=== PATIENT | male | born 1990 | race Caucasian/White ===

== ENCOUNTER → 2020-02-13 12:37 | Outpatient (BNVA) | payer OTHER, SELFPAY | PROVIDERS: PCP Family Medicine; Referring Provider Family Medicine; Visit Provider Nurse Practitioner Gerontology | DX: E11.40 Type 2 diabetes mellitus with diabetic neuropathy, unspecified (principal); E11.65 Type 2 diabetes mellitus with hyperglycemia; Z79.4 Long term (current) use of insulin | CPT/HCPCS: 99213 ==

== ENCOUNTER 2020-03-29 14:14 | Outpatient (REF) | payer OTHER, SELFPAY ==
[2020-03-29 15:08] LABS: Estimated Average Glucose 280 mg/dL; Hemoglobin A1c % 11.4 %
[2020-03-29 15:38] LABS: Alanine Aminotransferase 62 U/L (0-40); Albumin Level 4.2 g/dL (3.5-5.0); Alkaline Phosphatase 104 U/L (39-117); Anion Gap 15 (12-20); Aspartate Amino Transferase 41 U/L (5-37); Bilirubin Total 0.9 mg/dL (0.0-1.0); Blood Urea Nitrogen 8 mg/dL (9-16); Calcium 9.1 mg/dL (8.4-10.2); Carbon Dioxide 25 mmol/L (22-29); Chloride 97 mmol/L (96-108); Cholesterol 187 mg/dL; Estimated Glomerular Filt Rate > 60; Glucose Fasting 250 mg/dL (60-99); HDL Cholesterol 35 mg/dL; LDL Cholesterol Calculated 118 mg/dl; Potassium 4.4 mmol/l (3.3-5.1); Sodium 133 mmol/L (135-145); Total Protein 7.7 g/dL (6.5-8.0); Triglycerides 170 mg/dL
[2020-03-29 15:39] LABS: Microalbum/Creatinine Ratio Ur 29.2 ug/mg cr
[2020-03-29 16:00] LABS: Vitamin D 25-OH Total 18.5 ng/mL (>30)
[2020-03-30 14:22] LABS: LDL Cholesterol Direct 133 mg/dL (<100)
== END 2020-03-29 14:15 | disposition home or self-care (01) ==
LOC: HO.LAB 14:14
PROVIDERS: Absent Provider Nurse Practitioner Gerontology; PCP Family Medicine; Visit Provider Family Medicine
DX: E11.40 Type 2 diabetes mellitus with diabetic neuropathy, unspecified (principal); E55.9 Vitamin D deficiency, unspecified; E78.00 Pure hypercholesterolemia, unspecified
CPT/HCPCS: 80053; 80061; 82043; 82306; 83036; 83721

== ENCOUNTER → 2020-04-14 10:56 | Outpatient (BNVA) | payer OTHER, SELFPAY | PROVIDERS: PCP Family Medicine; Referring Provider Family Medicine; Visit Provider Nurse Practitioner Gerontology | DX: Z76.89 Persons encountering health services in other specified circumstances (principal) ==

== ENCOUNTER → 2020-04-29 08:28 | Outpatient (BNVA) | payer OTHER, SELFPAY | PROVIDERS: PCP Family Medicine; Visit Provider Nurse Practitioner | DX: Z76.89 Persons encountering health services in other specified circumstances (principal) ==

== ENCOUNTER 2020-05-20 08:54 | Outpatient (REF) | payer OTHER, SELFPAY ==
--- NOTE | 2020-05-20 08:57 | US_ITS ---
EXAMINATION: US ABDOMEN COMPLETE CLINICAL INFORMATION: Abnormal levels of other serum enzymes. COMPARISON: None TECHNIQUE: Real-time imaging of the abdominal viscera. FINDINGS: PANCREAS: The body of the pancreas is homogeneous in echotexture. The tail and the head of the pancreas are obscured by overlying gas. ABDOMINAL AORTA: The abdominal aorta is of normal caliber. INFERIOR VENA CAVA: Visualized portions are normal. LIVER: The liver is enlarged with diffuse increased echogenicity. No focal lesion or intrahepatic ductal dilatation seen. There is no intrahepatic biliary duct dilatation seen. GALLBLADDER: The gallbladder is moderately distended with septation and folds. There is no evidence of stones, sludge, polyps, wall thickening, or pericholecystic fluid. COMMON BILE DUCT: Normal in caliber measuring 0.4 cm in diameter. RIGHT KIDNEY: Normal. No hydronephrosis. No renal calculi or focal parenchymal lesions. The kidney measures 12.8 cm in maximum dimension. LEFT KIDNEY: Normal. No hydronephrosis. No renal calculi or focal parenchymal lesions. The kidney measures 13.9 cm in maximum dimension. SPLEEN: The spleen is mildly enlarged.The spleen measures 15.9 cm in maximum dimension. FREE FLUID: None. US/US abdomen complete IMPRESSION: Hepatosplenomegaly. Mild hepatic steatosis without focal lesion. Gallbladder is moderately distended with septation/folds within the fundus.
== END 2020-05-20 08:55 | disposition home or self-care (01) ==
LOC: HO.US 08:54
PROVIDERS: PCP Family Medicine; Visit Provider Nurse Practitioner
DX: R74.8 Abnormal levels of other serum enzymes (principal)
CPT/HCPCS: 76700

== ENCOUNTER → 2020-05-21 13:21 | Outpatient (BNVA) | payer OTHER, SELFPAY | PROVIDERS: PCP Family Medicine; Visit Provider Nurse Practitioner Gerontology | DX: Z13.89 Encounter for screening for other disorder (principal) | CPT/HCPCS: 99212 ==

== ENCOUNTER 2020-06-01 10:35 | Outpatient (REF) | payer OTHER, SELFPAY ==
[2020-06-01 11:35] LABS: Estimated Average Glucose 315 mg/dL; Hemoglobin A1c % 12.6 %
[2020-06-01 12:20] LABS: Vitamin D 25-OH Total 11.2 ng/mL (>30)
[2020-06-01 12:22] LABS: Ferritin 116 ng/mL (20-250)
[2020-06-02 09:47] LABS: HBS Num1 35.82 mIU/mL (0-7.99); HBc Num1 0.07 S/CO (0.00-0.79); HBsAGNum1 0.22 S/CO (0.00-0.99); HIV AB/AG Nonreactive (Nonreactive); HIV Num 1 0.07 S/CO (0.00-0.99); Hepatitis A Antibody IgM 0.19 Index (0-0.79); Hepatitis B Core Antibody Nonreactive (Nonreactive); Hepatitis B Surface Antigen Negative (Negative); ~HepC Num1 0.07 S/CO (0.00-0.79); ~Hepatitis A Antibody IgM Nonreactive (Nonreactive); ~Hepatitis B Surface Antibody REACTIVE (Nonreactive); ~Hepatitis C Antibody Nonreactive (Nonreactive)
[2020-06-02 11:32] LABS: Alpha Fetoprotein 4.7 ng/mL (<6.1)
[2020-06-02 12:42] LABS: Mitochondrial Antibodies NEGATIVE (NEGATIVE)
[2020-06-02 13:28] LABS: Anti Nuclear Antibody Screen NEGATIVE (NEGATIVE)
[2020-06-04 00:27] LABS: Smooth Muscle Antibody <20 U (<20)
== END 2020-06-01 10:36 | disposition home or self-care (01) ==
LOC: HO.LAB 10:35
PROVIDERS: Absent Provider Nurse Practitioner Gerontology; PCP Family Medicine; Visit Provider Nurse Practitioner
DX: R74.8 Abnormal levels of other serum enzymes (principal); E11.42 Type 2 diabetes mellitus with diabetic polyneuropathy; E55.9 Vitamin D deficiency, unspecified
CPT/HCPCS: 36415; 82105; 82306; 82728; 83036; 86038; 86039; 86255; 86256; 86704; 86706; 86709; 86803; 87340; 87389

== ENCOUNTER → 2020-06-09 08:53 | Outpatient (BNVA) | payer OTHER, SELFPAY | PROVIDERS: PCP Family Medicine; Visit Provider Nurse Practitioner | DX: Z76.89 Persons encountering health services in other specified circumstances (principal) ==

== ENCOUNTER → 2020-06-25 07:57 | Outpatient (BNVA) | payer OTHER, SELFPAY | PROVIDERS: PCP Family Medicine; Visit Provider Nurse Practitioner Gerontology | DX: E11.40 Type 2 diabetes mellitus with diabetic neuropathy, unspecified (principal); Z79.4 Long term (current) use of insulin; E78.5 Hyperlipidemia, unspecified; I10 Essential (primary) hypertension; E55.9 Vitamin D deficiency, unspecified; E66.01 Morbid (severe) obesity due to excess calories; Z68.43 Body mass index [BMI] 50.0-59.9, adult | CPT/HCPCS: 82947; 99212 ==

== ENCOUNTER → 2020-08-09 11:15 | Outpatient (BNVA) | payer OTHER, SELFPAY | PROVIDERS: PCP Family Medicine; Visit Provider Nurse Practitioner ==

== ENCOUNTER → 2020-08-16 10:08 | Outpatient (BNVA) | payer OTHER, SELFPAY | PROVIDERS: PCP Family Medicine; Visit Provider Nurse Practitioner Gerontology ==

== ENCOUNTER 2020-08-20 08:03 | Outpatient (REF) | payer OTHER, SELFPAY ==
[2020-08-20 09:29] LABS: Anion Gap 14 (12-20); Blood Urea Nitrogen 10 mg/dL (9-16); Carbon Dioxide 28 mmol/L (22-29); Chloride 101 mmol/L (96-108); Cholesterol 166 mg/dL; Estimated Glomerular Filt Rate > 60; Glucose Fasting 168 mg/dL (60-99); HDL Cholesterol 33 mg/dL; LDL Cholesterol Calculated 97 mg/dl; Potassium 4.6 mmol/L (3.3-5.1); Sodium 138 mmol/L (135-145); Triglycerides 182 mg/dL
[2020-08-20 09:31] LABS: Estimated Average Glucose 206 mg/dL; Hemoglobin A1c % 8.8 %
[2020-08-20 09:43] LABS: Creatinine Urine 283.79 mg/dL; Microalbum/Creatinine Ratio Ur 24.6 ug/mg cr
== END 2020-08-20 08:04 | disposition home or self-care (01) ==
LOC: HO.LAB 08:03
PROVIDERS: Absent Provider Nurse Practitioner Gerontology; PCP Family Medicine; Visit Provider Family Medicine
DX: E11.9 Type 2 diabetes mellitus without complications (principal); I10 Essential (primary) hypertension; E78.00 Pure hypercholesterolemia, unspecified
CPT/HCPCS: 36415; 80051; 80061; 82043; 82565; 82947; 83036; 84520

== ENCOUNTER 2020-08-20 08:50 | Outpatient (REF) | payer OTHER, SELFPAY ==
[2020-08-20 09:18] LABS: COVID-19 Test Positive (Negative)
== END 2020-08-20 08:51 | disposition home or self-care (01) ==
LOC: HO.LAB 08:50
PROVIDERS: Visit Provider Internal Medicine
DX: Z20.822 Contact with and (suspected) exposure to COVID-19 (principal)
CPT/HCPCS: 36415; 87635; C9803

== ENCOUNTER → 2020-11-18 12:13 | Outpatient (BNVA) | payer OTHER, SELFPAY | PROVIDERS: PCP Family Medicine; Visit Provider Nurse Practitioner Gerontology | DX: E11.40 Type 2 diabetes mellitus with diabetic neuropathy, unspecified (principal); E66.01 Morbid (severe) obesity due to excess calories; E78.5 Hyperlipidemia, unspecified; E55.9 Vitamin D deficiency, unspecified; I10 Essential (primary) hypertension; Z79.4 Long term (current) use of insulin; Z68.43 Body mass index [BMI] 50.0-59.9, adult | CPT/HCPCS: 82947; 83036; 99212 ==

== ENCOUNTER → 2020-11-26 12:43 | Outpatient (BNVA) | payer OTHER, SELFPAY | PROVIDERS: PCP Family Medicine; Visit Provider Nurse Practitioner ==

== ENCOUNTER 2021-03-15 11:03 | Outpatient (REF) | payer OTHER, SELFPAY ==
--- NOTE | ~2021-03-15 | XR_ITS ---
EXAMINATION: XR CHEST CLINICAL INFORMATION: Cough. URI. COMPARISON: December 25, 2019 TECHNIQUE: 2 views of the chest were obtained. FINDINGS: No significant abnormality is noted involving the heart, lungs, mediastinum, bony thorax or soft tissues. XR/XR chest 2V IMPRESSION: No acute disease.
== END 2021-03-15 11:04 | disposition home or self-care (01) ==
LOC: HO.XRAY 11:03
PROVIDERS: PCP Family Medicine; Visit Provider Family Medicine
DX: R05.9 Cough, unspecified (principal)
CPT/HCPCS: 71046

== ENCOUNTER 2021-03-29 08:21 | Outpatient (REF) | payer OTHER, SELFPAY ==
[2021-03-29 08:52] LABS: MANUAL DIFF FLAG NO
[2021-03-29 09:02] LABS: Basophils Percent Auto 0.4 % (0-2); Eosinophils Absolute Auto 0.2 X10*3/uL (0.0-0.4); Eosinophils Percent Auto 1.7 % (0-4); Hematocrit 44.3 % (42.0-52.0); Hemoglobin 14.4 g/dl (14.0-18.0); Imm Gran Abs Auto 0.07 X10*3/uL (0.00-0.03); Imm Gran Pct Auto 0.7 % (0.0-0.4); Lymphocytes Percent Auto 28.5 % (20-40); Mean Corpuscular HGB Conc 32.5 g/dl (31.0-36.0); Mean Corpuscular Hemoglobin 25.5 pg (27.0-33.0); Mean Corpuscular Volume 78.4 fL (80.0-98.0); Mean Platelet Volume 10.2 fL (9.4-12.4); Monocytes Absolute Auto 0.6 X10*3/uL (0.1-1.2); Neutrophils Absolute Auto 6.6 x10*3/uL (2.0-8.3); Neutrophils Percent Auto 62.7 % (45-73); Platelet Count 363 X10*3/uL (160-400); Red Blood Count 5.65 X10*6/uL (4.60-5.80); Red Cell Distribution Width 13.8 % (11.0-16.0); White Blood Count 10.5 X10*3/uL (4.8-10.8)
[2021-03-29 09:28] LABS: Alanine Aminotransferase 90 U/L (0-40); Aspartate Amino Transferase 51 U/L (5-37); Estimated Average Glucose 306 mg/dL; Hemoglobin A1c % 12.3 %
[2021-03-29 09:29] LABS: Alanine Aminotransferase 92 U/L (0-40); Albumin Level 4.1 g/dL (3.5-5.0); Alkaline Phosphatase 110 U/L (39-117); Anion Gap 15 (12-20); Aspartate Amino Transferase 51 U/L (5-37); Bilirubin Direct 0.2 mg/dL (0.0-0.5); Bilirubin Total 0.5 mg/dL (0.0-1.0); Blood Urea Nitrogen 8 mg/dL (9-16); Calcium 9.7 mg/dL (8.4-10.2); Carbon Dioxide 27 mmol/L (22-29); Chloride 98 mmol/L (96-108); Cholesterol 203 mg/dL; Estimated Glomerular Filt Rate > 60; Glucose Fasting 308 mg/dL (60-99); HDL Cholesterol 38 mg/dL; LDL Cholesterol Calculated 121 mg/dl; Potassium 4.2 mmol/L (3.3-5.1); Sodium 136 mmol/L (135-145); Total Protein 8.1 g/dL (6.5-8.0); Triglycerides 223 mg/dL
[2021-03-29 09:51] LABS: Thyroid Stimulating Hormone 1.16 uIU/mL (0.32-4.0)
[2021-03-29 11:10] LABS: Creatinine Urine 258.65 mg/dL; Microalbum/Creatinine Ratio Ur 33.6 ug/mg cr
[2021-03-30 11:07] LABS: LDL Cholesterol Direct 139 mg/dL (<100)
== END 2021-03-29 08:22 | disposition home or self-care (01) ==
LOC: HO.LAB 08:21
PROVIDERS: Nurse Practitioner; Absent Provider Nurse Practitioner Gerontology; PCP Family Medicine; Visit Provider Family Medicine
DX: E11.40 Type 2 diabetes mellitus with diabetic neuropathy, unspecified (principal); K75.81 Nonalcoholic steatohepatitis (NASH); R74.8 Abnormal levels of other serum enzymes; E78.00 Pure hypercholesterolemia, unspecified; I10 Essential (primary) hypertension; E11.9 Type 2 diabetes mellitus without complications; R00.0 Tachycardia, unspecified; Z79.899 Other long term (current) drug therapy; Z79.4 Long term (current) use of insulin
CPT/HCPCS: 36415; 80053; 80061; 80076; 82043; 82105; 82248; 82550; 83036; 83721; 84439; 84443; 84450; 84460; 85025

== ENCOUNTER 2021-04-06 06:56 | Emergency (ER) | payer OTHER, SELFPAY ==
--- NOTE | 2021-04-06 07:14 | ED_ITS ---
HPI - General Adult General Chief complaint: General Medical Stated complaint: low blood sugar Time Seen by Provider: 04/06/21 07:14 Source: patient Mode of arrival: ambulatory Limitations: no limitations History of Present Illness HPI narrative: patient put in his insulin monitoring device on Sunday but his readings as of yesterday started reading low. In the ED our Glucometer read 130. Patient states he has mild headache Onset (ago): day(s) Associated symptoms: headaches Related Data Home Medications Medication Instructions Recorded Confirmed lisinopril 20 mg tablet 20 mg PO DAILY 02/13/20 11/18/20 metoprolol succinate 100 mg 100 mg PO DAILY 02/13/20 11/18/20 tablet,extended release 24 hr blood sugar diagnostic #10 ea 05/21/20 08/16/20 gabapentin 300 mg capsule 300 mg PO BEDTIME 11/18/20 11/18/20 Previous Rx's Medication Instructions Recorded flash glucose scanning reader #1 ea 03/05/20 (FreeStyle Urszula 2 [place]) cholecalciferol (vitamin D3) 50 50 mcg PO DAILY 30 Days #30 cap 05/21/20 mcg (2,000 unit) capsule [id number]-[id number]-[id number] 1 cap PO QID 30 Days #120 cap 06/09/20 24,000-76,000-120,000 unit capsule,delayed rel (Creon) empagliflozin 25 mg tablet 25 mg PO DAILY #30 tab 06/25/20 (Jardiance) flash glucose sensor (FreeStyle #2 ea 06/25/20 Urszula 2 Sensor) insulin glargine U-300 conc 300 60 unit (0.2 mL) SUBCUT DAILY 30 06/25/20 unit/mL (1.5 mL) subcutaneous pen Days #9 ml (Toujeo SoloStar U-300 Insulin) pen needle, diabetic 32 gauge x #125 ea 06/25/20 (BD Ultra-Fine Suzy Pen Needle) insulin lispro 100 unit/mL See Rx Instructions SUBCUT TID #15 07/20/20 subcutaneous pen (Humalog KwikPen ml (U-100) Insulin) dulaglutide 3 mg/0.5 mL 3 mg (0.5 mL) SUBCUT QWEEK 28 Days 11/18/20 subcutaneous pen injector #2 ml (Trulicity) dulaglutide 4.5 mg/0.5 mL 4.5 mg (0.5 mL) SUBCUT QWEEK #2 ml 11/18/20 subcutaneous [facility] ([facility] metformin 1,000 mg tablet 1,000 mg PO DAILY 30 Days #30 tab 01/24/21 atorvastatin 20 mg tablet 20 mg PO BEDTIME #30 tab 03/31/21 Allergies Allergy/AdvReac Type Severity Reaction Status Date / Time No Known Allergies Allergy Verified 11/26/20 12:44 Review of Systems Constitutional: Constitutional: Reports no additional constitutional complaints Eyes: Eyes: Reports no additional eye complaints ENT: Denies dizziness Cardiovascular: Cardiovascular: Reports no additional cardiovascular complaints Respiratory: Respiratory: Reports as per HPI Gastrointestinal: Gastrointestinal: Reports no additional gastrointestinal complaints Musculoskeletal: Musculoskeletal: Reports no additional musculoskeletal complaints Integumentary/Breasts: Skin/Breast: Denies rash Neurologic: Reports system reviewed and no additional complaints, except as documented, Denies dizziness and Denies Sensory deficit (Neuro) Psychiatric: Psychiatric: Denies anxiety PMFSH Past Medical History Medical History BMI 50.0-59.9, adult Elevated liver enzymes GERD (gastroesophageal reflux disease) Hyperlipidemia Hypertension Morbid obesity Neuropathy Type 2 diabetes mellitus with diabetic neuropathy Vitamin D deficiency Surgical History Hx of circumcision Family History Family History Father Diabetes Mother Diabetes Social History Social History Household Members: Family Household Members Other:: brothers Alcohol intake: never Patient Tobacco Use Status: Never used Tobacco Advance Directives: No Current occupational status: employed Current occupation: [employer] Physical Exam Vital Signs: Vital Signs: Last Vital Signs Temp 96.0 F L 04/06/21 07:43 Pulse 101 H 04/06/21 07:43 Resp 18 04/06/21 07:43 BP 121/67 04/06/21 07:43 Pulse Ox 97 04/06/21 07:43 Body Mass Index 53.1 Const: Other: obese male looking older than stated age Nutritional Appearance: obese Orientation/consciousness: oriented to person and patient oriented x3 Limitations: no limitations HENMT: Head: Yes normal to inspection Ears: external ears normal General nose exam: Normal external nose present Mouth: Normal oral and palatal mucosa present and oropharynx normal Throat: Yes posterior oropharynx normal Eyes: General: appearance normal, both eyes and all related structures Neck: Other: supple Neck: Yes normal visual inspection Chest: Chest palpation & inspection: normal inspection of the chest Resp: Auscultation: clear to auscultation bilaterally Cardio: Jugular venous distension: no JVD Rate: regular rate Rhythm: regular rhythm Heart sounds: S1 normal heart sound present and S2 normal heart sound present GI: Inspection: Yes normal to inspection Palpation (GI): Soft to palpation, nontender and No hepatosplenomegaly present Auscultation: normal bowel sounds : General: Yes no CVA tenderness Back/Spine/Pelvis: Back: no CVA tenderness Skin: General skin exam: no rashes or lesions noted Neuro: General: oriented to person and patient oriented x3 Cranial nerves: Yes CN's II-XII intact bilaterally Motor exam (neuro): 5/5 motor strength present throughout Sensory Exam: No Sensory deficit (Neuro) Extrem: General: Yes normal to inspection Psych: Appearance: grossly normal Course Reevaluation(s) Reevaluation #1: patients glucose monitor is off, repeat glucose is 175 Time: 09:18 Medical Decision Making Lab Data Result diagrams: 04/06/21 07:43 Labs: Lab Results 04/06/21 04/06/21 Range/Units 07:10 07:43 Sodium 137 (135-145) mmol/L Potassium 4.3 (3.3-5.1) mmol/L Chloride 103 (96-108) mmol/L Carbon Dioxide 24 (22-29) mmol/L Anion Gap 14 (12-20) BUN 13 D (9-16) mg/dL Creatinine 0.78 (0.5-1.4) mg/dL Estim Creat Clear Calc 201.0 Estimated GFR > 60 POC Glucose 167 H (60-115) mg/dL Random Glucose 175 H (60-115) mg/dL Calcium 9.6 (8.4-10.2) mg/dL Discharge Plan Discharge Clinical Impression: Diabetes Qualifiers: Diabetes mellitus type: type 2 Diabetes mellitus 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 Diabetes mellitus complication status: with other specified complication Qualified Code(s): E11.69 - Type 2 diabetes mellitus with other specified complication Patient Disposition: Home, Self-Care Instructions: Diabetes and Nutrition (ED) Prescriptions: No Action (DME) FreeStyle Urszula 2 [place] Misc See Rx Instructions .ROUTE .MEDSUPPLY Qty: 1 RF: 0 insulin lispro [Humalog KwikPen Insulin] 100 unit/mL insulin pen See Rx Instructions subcut TID Qty: 15 RF: 1 metformin 1,000 mg tablet 1,000 mg PO DAILY 30 Days Qty: 30 RF: 4 atorvastatin 20 mg tablet 20 mg PO BEDTIME Qty: 30 RF: 11 metoprolol succinate 100 mg tablet extended release 24 hr 100 mg PO DAILY RF: 0 lisinopril 20 mg tablet 20 mg PO DAILY RF: 0 (DME) FreeStyle Precision Denis Strips Strip See Rx Instructions strip .ROUTE .MEDSUPPLY Qty: 10 RF: 0 cholecalciferol (vitamin D3) 50 mcg (2,000 unit) capsule 50 mcg PO DAILY 30 Days Qty: 30 RF: 6 Creon 24,000-76,000 -120,000 unit capsule,delayed release(DR/EC) 1 cap PO QID 30 Days Qty: 120 RF: 3 Toujeo SoloStar U-300 Insulin 300 unit/mL (1.5 mL) insulin pen 60 unit subcut DAILY 30 Days Qty: 9 RF: 2 (DME) pen needle, diabetic [BD Ultra-Fine Suzy Pen Needle] 32 gauge x 5/32 needle See Rx Instructions .ROUTE .MEDSUPPLY Qty: 125 RF: 11 (DME) FreeStyle Urszula 2 Sensor Kit See Rx Instructions .ROUTE .MEDSUPPLY Qty: 2 RF: 11 Jardiance 25 mg tablet 25 mg PO DAILY Qty: 30 RF: 3 gabapentin 300 mg capsule 300 mg PO BEDTIME RF: 0 Trulicity 3 mg/0.5 mL pen injector 3 mg subcut QWEEK 28 Days Qty: 2 RF: 0 Trulicity 4.5 mg/0.5 mL pen injector 4.5 mg subcut QWEEK Qty: 2 RF: 3 Referrals: Torito Cooley MD [Primary Care Provider] - 5 days
[2021-04-06 07:25] LABS: Glucose, Whole Blood 167 mg/dL (60-115)
[2021-04-06 07:43] VITALS: BP 121/67; PULSE 101; RESP 18; TEMP 35.6; O2SAT 97; BMI 53.1
[2021-04-06 08:05] LABS: Anion Gap 14 (12-20); Blood Urea Nitrogen 13 mg/dL (9-16); Calcium 9.6 mg/dL (8.4-10.2); Carbon Dioxide 24 mmol/L (22-29); Chloride 103 mmol/L (96-108); Estimated Glomerular Filt Rate > 60; Glucose Random 175 mg/dL (60-115); Potassium 4.3 mmol/L (3.3-5.1); Sodium 137 mmol/L (135-145)
--- NOTE | 2021-04-06 09:40 | PC.NURSE ---
pt alert and oriented, vss, denies pain/headache/dizziness. pt has a blood glucose monitor to his left upper inner arm, he states his monitor has been giving him low blood glucose readings since yesterday evening. he thinks his monitor is not working because this is not normal for him. pt is asymptomatic. no symptoms reported. pt's poc on arrival to ed was 167. His random glucose was 175. Pt is now medically cleared for discharge.
== END 2021-04-06 09:38 | disposition home or self-care (01) ==
PROVIDERS: Emergency Provider Emergency Medicine; PCP Family Medicine
DX: E11.69 Type 2 diabetes mellitus with other specified complication (principal); R51.9 Headache, unspecified; Z79.899 Other long term (current) drug therapy
CPT/HCPCS: 36415; 80048; 82947; 99283

== ENCOUNTER 2021-06-13 10:20 | Outpatient (REF) | payer OTHER, SELFPAY ==
--- NOTE | ~2021-06-13 | US_ITS ---
EXAMINATION: US ABDOMEN LIMITED CLINICAL INFORMATION: Nonalcoholic steatohepatitis (MIRANDA). COMPARISON: Ultrasound abdomen complete 05/20/2020. TECHNIQUE: Real-time imaging of the right upper quadrant abdominal viscera. FINDINGS: PANCREAS: Not well visualized due to bowel gas. LIVER: The liver is enlarged. The liver echotexture is increased. The liver contour is normal. No focal hepatic lesion. There is no intrahepatic biliary duct dilatation seen. GALLBLADDER: Normal. The gallbladder is physiologically distended without evidence of stones, sludge, polyps, wall thickening or pericholecystic fluid. There may be a phrygian cap. COMMON BILE DUCT: Normal in caliber measuring 0.28 cm in diameter. RIGHT KIDNEY: Normal. No hydronephrosis. No renal calculi or focal parenchymal lesions. The kidney measures 13.7 cm in maximum dimension. FREE FLUID: None. US/US abdomen limited IMPRESSION: Enlarged echogenic liver similar to previous exam.
== END 2021-06-13 10:21 | disposition home or self-care (01) ==
LOC: HO.US 10:20
PROVIDERS: PCP Family Medicine; Visit Provider Nurse Practitioner
DX: K75.81 Nonalcoholic steatohepatitis (NASH) (principal); R74.8 Abnormal levels of other serum enzymes
CPT/HCPCS: 76705

== ENCOUNTER → 2021-06-17 08:00 | Outpatient (BNVA) | payer OTHER, SELFPAY | PROVIDERS: PCP Family Medicine; Visit Provider Nurse Practitioner Gerontology ==

== ENCOUNTER → 2021-06-21 08:01 | Outpatient (BNVA) | payer OTHER, SELFPAY | PROVIDERS: PCP Family Medicine; Visit Provider Nurse Practitioner | DX: K75.81 Nonalcoholic steatohepatitis (NASH) (principal); K83.5 Biliary cyst; R14.0 Abdominal distension (gaseous); R10.9 Unspecified abdominal pain | CPT/HCPCS: 99212 ==

== ENCOUNTER 2021-08-16 10:35 | Outpatient (REF) | payer OTHER, SELFPAY ==
[2021-08-16 12:01] LABS: Estimated Average Glucose 341 mg/dL; Hemoglobin A1c % 13.5 %
[2021-08-16 12:30] LABS: Alanine Aminotransferase 67 U/L (0-40); Albumin Level 4.2 g/dL (3.5-5.0); Alkaline Phosphatase 110 U/L (39-117); Aspartate Amino Transferase 36 U/L (5-37); Bilirubin Direct 0.3 mg/dL (0.0-0.5); Bilirubin Total 0.8 mg/dL (0.0-1.0); Lipase 14 U/L (8-78); Total Protein 7.9 g/dL (6.5-8.0)
[2021-08-16 12:35] LABS: Glucose Fasting 176 mg/dL (60-99)
[2021-08-16 12:46] LABS: Thyroid Stimulating Hormone 0.88 uIU/mL (0.32-4.0)
[2021-08-16 12:50] LABS: Vitamin D 25-OH Total 19.8 ng/mL (>30)
[2021-08-16 13:05] LABS: Creatinine Urine 62.05 mg/dL; Microalbum/Creatinine Ratio Ur 16.1 ug/mg cr
[2021-08-18 05:51] LABS: Thyroglobulin 13.5 ng/mL
[2021-08-18 12:26] LABS: Alpha Fetoprotein 5.2 ng/mL (<6.1)
== END 2021-08-16 10:36 | disposition home or self-care (01) ==
LOC: HO.LAB 10:35
PROVIDERS: Absent Provider Nurse Practitioner; PCP Family Medicine; Referring Provider Family Medicine; Visit Provider Nurse Practitioner Gerontology
DX: K75.81 Nonalcoholic steatohepatitis (NASH) (principal); E55.9 Vitamin D deficiency, unspecified; E11.40 Type 2 diabetes mellitus with diabetic neuropathy, unspecified; R00.0 Tachycardia, unspecified; Z79.4 Long term (current) use of insulin; Z83.49 Family history of other endocrine, nutritional and metabolic diseases
CPT/HCPCS: 36415; 80076; 82043; 82105; 82306; 82947; 83036; 83690; 84432; 84443

== ENCOUNTER → 2021-08-19 12:01 | Outpatient (BNVA) | payer OTHER, SELFPAY | PROVIDERS: PCP Family Medicine; Visit Provider Nurse Practitioner Gerontology | DX: E11.40 Type 2 diabetes mellitus with diabetic neuropathy, unspecified (principal); E78.5 Hyperlipidemia, unspecified; E66.01 Morbid (severe) obesity due to excess calories; I10 Essential (primary) hypertension; Z79.4 Long term (current) use of insulin; E55.9 Vitamin D deficiency, unspecified; Z68.43 Body mass index [BMI] 50.0-59.9, adult | CPT/HCPCS: 82947; 99212 ==

== ENCOUNTER 2023-05-16 20:03 | Emergency (ER) | payer BC, OTHER, SELFPAY ==
[2023-05-16 20:08] VITALS: BP 150/110; PULSE 77; RESP 18; TEMP 36.6; O2SAT 98; BMI 49.4
--- NOTE | 2023-05-16 20:10 | ED.URI ---
HPI - URI/Sore Throat General Chief Complaint: Upper Respiratory Symptoms Stated Complaint: chest pain, congestion, sore throat Time Seen by Provider: 05/17/23 00:19 Source: patient Mode of arrival: ambulatory Limitations: no limitations History of Present Illness HPI Narrative: 32 yo M w/ PMHx DM, HLD, HTN presenting to the ED c/o chest pain when cough, sore throat, generalized body ache chills, fever x2 weeks. Has been noncompliant with all meds x1 year > due to health insurance issues Related Data Home Medications Medication Instructions Recorded Confirmed lisinopril 20 mg tablet 20 mg PO DAILY 02/13/20 08/19/21 metoprolol succinate 100 mg 100 mg PO DAILY 02/13/20 08/19/21 tablet,extended release 24 hr blood sugar diagnostic #10 ea 05/21/20 08/16/20 gabapentin 300 mg capsule 300 mg PO BEDTIME 11/18/20 06/17/21 mzbahc-wipnxrvb-wvigzfa 1 cap PO TID 06/17/21 08/19/21 6,000-19,000-30,000 unit capsule,delayed rel (Creon) gabapentin 300 mg capsule 300 mg PO BEDTIME 08/19/21 08/19/21 Previous Rx's Medication Instructions Recorded cholecalciferol (vitamin D3) 50 50 mcg PO DAILY 30 days #30 caps 05/21/20 mcg (2,000 unit) capsule empagliflozin 25 mg tablet 25 mg PO DAILY #30 tabs 06/25/20 (Jardiance) pen needle, diabetic 32 gauge x #125 ea 06/25/20 (BD Ultra-Fine Suzy Pen Needle) atorvastatin 20 mg tablet 20 mg PO BEDTIME #30 tabs 03/31/21 flash glucose scanning reader #1 ea 05/09/21 (FreeStyle Urszula 2 [place]) flash glucose sensor (FreeStyle #2 ea 08/09/21 Urszula 2 Sensor kit) insulin aspart U-100 100 unit/mL See Rx Instructions subcut TID #45 08/11/21 (3 mL) subcutaneous pen (Novolog mL FlexPen U-100 Insulin aspart) cholecalciferol (vitamin D3) 1,250 1,250 mcg PO QWEEK #8 caps 08/19/21 mcg (50,000 unit) capsule insulin glargine U-300 conc 300 74 unit (0.2467 mL) subcut DAILY 08/19/21 unit/mL (1.5 mL) subcutaneous pen 30 days #9 mL (Toujeo SoloStar U-300 Insulin) dulaglutide 4.5 mg/0.5 mL 4.5 mg (0.5 mL) subcut QWEEK #2 mL 11/30/21 subcutaneous pen injector (Trulicity) metformin 1,000 mg tablet 1,000 mg PO DAILY 30 days #30 tabs 02/23/22 Allergies Allergy/AdvReac Type Severity Reaction Status Date / Time No Known Allergies Allergy Verified 05/16/23 20:13 Review of Systems Review of Systems: All other systems are reviewed and are negative Constitutional: Reports as per HPI and Reports no additional constitutional complaints Eyes: Reports as per HPI and Reports no additional eye complaints Reports system reviewed and no additional complaints, except as documented Cardiovascular: Reports as per HPI and Reports no additional cardiovascular complaints Respiratory: Reports as per HPI and Reports no additional respiratory complaints Gastrointestinal: Reports as per HPI and Reports no additional gastrointestinal complaints Genitourinary: Reports no additional female genitourinary complaints Musculoskeletal: Reports no additional musculoskeletal complaints Skin/Breast: Reports system reviewed and no additional complaints, except as docu Psychiatric: Reports no additional psychiatric complaints Endocrine: Reports no additional endocrine complaints Hematologic/Lymphatic: Reports no additional hematologic/lymphatic complaints Allergic/Immunologic: Reports no additional allergic/immunologic complaints Reports system reviewed and no additional complaints, except as documented and Reports Abnormal speech present PMFSH Past Medical History Onset Date is defined in the Problem List Problems that require an onset date and time if occurred within 24 hrs of arrival to the ED Aortic Dissection and Rupture; Neurologic impairment; Cardiopulmonary Arrest; Endotracheal Intubation; Insertion or Replacement of Mechanical Circulatory Assist Device Medical History GERD (gastroesophageal reflux disease) BMI 50.0-59.9, adult Morbid obesity Neuropathy Vitamin D deficiency Hyperlipidemia Hypertension Type 2 diabetes mellitus with diabetic neuropathy Surgical History Hx of circumcision Family History Family History Father Diabetes Mother Diabetes Social History Social History Household Members: Family Household Members Other:: brothers Alcohol intake: never Patient Tobacco Use Status: Never used Tobacco Advance Directives: No Advance Directives Information Provided: Yes Current occupational status: employed 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 Blood pressure elevated. Heart rate normal. Respiratory rate normal. Temperature normal. Oxygen saturation normal. Appearance: Alert. Oriented X3. No acute distress. Head: Normal external exam. Normocephalic. Atraumatic. No Barrow signs noted. No raccoon eyes noted Eyes: PERRLA. EOMI. Conjunctiva and sclera normal. Eyelids normal. ENT: TM's Normal. Pharynx normal. Uvula midline. Moist mucous membranes. No trismus noted. No drooling noted. No muffled voice noted. Neck: Normal inspection. Neck supple. FROM. No adenopathy. Thyroid Normal. No meningeal signs. No neck mass noted. CVS: Normal heart rate and rhythm. Heart sound normal. No murmurs noted. Pulses normal throughout. Respiratory: No respiratory distress. Painless inspiration. Breath sounds normal. No wheezes/rales/rhonchi noted. Chest nontender. No accessory muscle usage noted or decreased air movement noted. Abdomen: Soft and nontender. Bowel sounds normal in all 4 quadrants. No distention noted. No organomegaly noted. No visible injury noted. Back: No CVA tenderness. Full range of motion noted. Skin: Skin warm and dry. Normal skin color. Normal skin turgor. No rashes/lesions/lacerations noted. Extremities: No lower extremity edema. Extremities exhibit normal range of motion. Extremities nontender. Neuro: Oriented X 3. Cranial nerve exam: II-XII are grossly intact No motor deficit. No sensory deficit. Reflexes normal. Course Course Course Narrative: RME: EKG, viral testing, rapid strep, CXR ordered Full HPI, ROS and PE to be performed by primary ED provider. Reevaluation(s) Reevaluation #1: 32-year-old male came in for evaluation of 2 weeks of upper respiratory symptoms patient found to be positive for influenza type A, patient work at [employer] was advised to quarantine at home will provide note for work, patient was instructed to wear face mask, frequent handwashing, social distancing there have Time: 00:45 Medical Decision Making Differential Diagnosis Differential Diagnoses: The differential diagnosis associated with the presentation includes ( RSV, influenza COVID-19 infection, pneumonia, pneumothorax.) Admission/Observation Consideration of admission/observation: Escalation of care including admission/observation considered Lab Data MDM Lab Attestation statement: I reviewed the patient's lab results. Labs: Lab Results 05/16/23 Range/Units 20:38 Influenza Type A (PCR) POSITIVE A (Negative) Influenza Type B (PCR) NEGATIVE (Negative) RSV RNA Qual (PCR) NEGATIVE (Negative) SARS-CoV-2 RNA (RT-PCR) NEGATIVE (Negative) S. pyogenes GrpA DEWEY Negative (Negative) Independent Interpretation I performed an independent interpretation of an: Plain X-Ray (Chest: Unremarkable examination) Radiology Impression Discussion of test interpretation with radiology: I have reviewed the radiologist's reading. Discharge Plan Discharge Clinical Impression: Influenza Patient Disposition: Home, Self-Care Instructions: Influenza (ED) Prescriptions: No Action atorvastatin 20 mg tablet 20 mg PO BEDTIME Qty: 30 11RF (DME) FreeStyle Urszula 2 [place] Misc See Rx Instructions .ROUTE .MEDSUPPLY Qty: 1 0RF Rx Instructions: As directed (DME) FreeStyle Urszula 2 Sensor Kit See Rx Instructions .ROUTE .MEDSUPPLY Qty: 2 11RF Rx Instructions: As directed insulin aspart U-100 [Novolog FlexPen U-100 Insulin] 100 unit/mL (3 mL) insulin pen See Rx Instructions subcut TID Qty: 45 5RF Rx Instructions: 14 units prior to breakfast/lunch, 24 units prior to dinner subcut 3 times a day; Trulicity 4.5 mg/0.5 mL pen injector 4.5 mg subcut QWEEK Qty: 2 3RF metformin 1,000 mg tablet 1,000 mg PO DAILY 30 Days Qty: 30 4RF metoprolol succinate 100 mg tablet extended release 24 hr 100 mg PO DAILY lisinopril 20 mg tablet 20 mg PO DAILY (DME) FreeStyle Precision Denis Strips Strip See Rx Instructions .ROUTE .MEDSUPPLY Qty: 10 Rx Instructions: As directed cholecalciferol (vitamin D3) 50 mcg (2,000 unit) capsule 50 mcg PO DAILY 30 Days Qty: 30 6RF Rx Instructions: To take while taking vit d 50,000 units weekly (DME) pen needle, diabetic [BD Ultra-Fine Suzy Pen Needle] 32 gauge x 5/32 needle See Rx Instructions .ROUTE .MEDSUPPLY Qty: 125 11RF Rx Instructions: As directed four times a day Jardiance 25 mg tablet 25 mg PO DAILY Qty: 30 3RF gabapentin 300 mg capsule 300 mg PO BEDTIME Creon 6,000-19,000 -30,000 unit capsule,delayed release(DR/EC) 1 cap PO TID gabapentin 300 mg capsule 300 mg PO BEDTIME Toujeo SoloStar U-300 Insulin 300 unit/mL (1.5 mL) insulin pen 74 unit subcut DAILY 30 Days Qty: 9 3RF cholecalciferol (vitamin D3) 1,250 mcg (50,000 unit) capsule 1,250 mcg PO QWEEK Qty: 8 0RF Rx Instructions: Hold vit D 2,000 units for the 8 weeks taking this medication. Referrals: Torito Cooley MD [Primary Care Provider] - Stand Alone Forms: Work/School Release
[2023-05-17 01:30] VITALS: PULSE 77; RESP 16; O2SAT 97
== END 2023-05-17 01:32 | disposition home or self-care (01) ==
PROVIDERS: Emergency Provider Emergency Medicine; PCP Family Medicine
DX: J10.1 Influenza due to other identified influenza virus with other respiratory manifestations (principal); R07.9 Chest pain, unspecified; Z11.52 Encounter for screening for COVID-19; J02.9 Acute pharyngitis, unspecified
CPT/HCPCS: 0241U; 71046; 87651; 93005; 99283; 99284

== ENCOUNTER → 2023-05-16 20:07 | Outpatient (BNV) | payer OTHER, SELFPAY | PROVIDERS: Emergency Provider Emergency Medicine; PCP Family Medicine; Visit Provider Internal Medicine Cardiovascular Disease | DX: R00.0 Tachycardia, unspecified (principal) | CPT/HCPCS: 93010 ==

== ENCOUNTER 2023-10-26 20:22 | Emergency (ER) | payer BC, OTHER, SELFPAY ==
[2023-10-26 20:32] VITALS: BP 183/112; PULSE 113; RESP 18; TEMP 36.8; O2SAT 98; BMI 48.7
[2023-10-26 20:48] LABS: MANUAL DIFF FLAG NO
[2023-10-26 20:50] LABS: Basophils Percent Auto 0.4 % (0-2); Eosinophils Absolute Auto 0.1 X10*3/uL (0.0-0.4); Eosinophils Percent Auto 1.4 % (0-4); Hematocrit 41.3 % (42.0-52.0); Hemoglobin 13.9 g/dl (14.0-18.0); Imm Gran Abs Auto 0.06 X10*3/uL (0.00-0.03); Imm Gran Pct Auto 0.6 % (0.0-0.4); Lymphocytes Absolute Auto 2.8 X10*3/uL (1.2-4.9); Lymphocytes Percent Auto 27.9 % (20-40); Mean Corpuscular HGB Conc 33.7 g/dl (31.0-36.0); Mean Corpuscular Hemoglobin 26.4 pg (27.0-33.0); Mean Corpuscular Volume 78.4 fL (80.0-98.0); Mean Platelet Volume 9.9 fL (9.4-12.4); Monocytes Absolute Auto 0.6 X10*3/uL (0.1-1.2); Monocytes Percent Auto 6.1 % (2-11); Neutrophils Absolute Auto 6.3 x10*3/uL (2.0-8.3); Neutrophils Percent Auto 63.6 % (45-73); Platelet Count 342 X10*3/uL (160-400); Red Blood Count 5.27 X10*6/uL (4.60-5.80); Red Cell Distribution Width 12.7 % (11.0-16.0); White Blood Count 9.9 X10*3/uL (4.8-10.8)
[2023-10-26 21:06] LABS: Alanine Aminotransferase 36 U/L (0-40); Albumin Level 3.9 g/dL (3.5-5.0); Alkaline Phosphatase 106 U/L (39-117); Anion Gap 14 (12-20); Aspartate Amino Transferase 19 U/L (5-37); Bilirubin Total 0.3 mg/dL (0.0-1.0); Blood Urea Nitrogen 7 mg/dL (9-16); Calcium 9.2 mg/dL (8.4-10.2); Carbon Dioxide 24 mmol/L (22-29); Chloride 99 mmol/L (96-108); Creatinine Clr Calc Pharmacy 173.1; Estimated Glomerular Filt Rate > 60; Glucose Random 437 mg/dL (60-115); Potassium 3.9 mmol/L (3.3-5.1); Sodium 133 mmol/L (135-145); Total Protein 7.4 g/dL (6.5-8.0)
--- NOTE | 2023-10-26 21:06 | PC.NURSE ---
critical lab: glucose 437.
--- NOTE | 2023-10-26 21:16 | ED_ITS ---
HPI - General Adult General Chief complaint: Extremity Injury, Lower Stated complaint: feet are burning Time Seen by Provider: 10/26/23 21:06 Source: patient Mode of arrival: ambulatory Limitations: no limitations History of Present Illness ED Provider: Dr. Kerrie Sanchez HPI narrative: Patient comes to the emergency room complaining of 2 years of worsening burning sensation pins and needles in the soles of the feet. Patient is known to be diabetic. Patient states that for 2-1/2 years he has not taking any of his medications, states that he never got to go back to his PCP for refills. Patient came today because the pain in the feet has gradually been worsening. Patient denies any pain. Also, patient has stopped taking all of his blood pressure medications the same reason Related Data Home Medications ?Medication ?Instructions ?Recorded ?Confirmed lisinopril 20 mg tablet 20 mg PO DAILY 02/13/20 08/19/21 metoprolol succinate 100 mg 100 mg PO DAILY 02/13/20 08/19/21 tablet,extended release 24 hr blood sugar diagnostic #10 ea 05/21/20 08/16/20 gabapentin 300 mg capsule 300 mg PO BEDTIME 11/18/20 06/17/21 [id number] 1 cap PO TID 06/17/21 08/19/21 6,000-19,000-30,000 unit capsule,delayed rel (Creon) gabapentin 300 mg capsule 300 mg PO BEDTIME 08/19/21 08/19/21 Previous Rx's ?Medication ?Instructions ?Recorded cholecalciferol (vitamin D3) 50 50 mcg PO DAILY 30 days #30 caps 05/21/20 mcg (2,000 unit) capsule empagliflozin 25 mg tablet 25 mg PO DAILY #30 tabs 06/25/20 (Jardiance) pen needle, diabetic 32 gauge x #125 ea 06/25/20 (BD Ultra-Fine Suzy Pen Needle) atorvastatin 20 mg tablet 20 mg PO BEDTIME #30 tabs 03/31/21 flash glucose scanning reader #1 ea 05/09/21 (FreeStyle Urszula 2 [place]) flash glucose sensor (FreeStyle #2 ea 08/09/21 Urszula 2 Sensor kit) insulin aspart U-100 100 unit/mL See Rx Instructions subcut TID #45 08/11/21 (3 mL) subcutaneous pen (Novolog mL FlexPen U-100 Insulin aspart) cholecalciferol (vitamin D3) 1,250 1,250 mcg PO QWEEK #8 caps 08/19/21 mcg (50,000 unit) capsule insulin glargine U-300 conc 300 74 unit (0.2467 mL) subcut DAILY 08/19/21 unit/mL (1.5 mL) subcutaneous pen 30 days #9 mL (Toujeo SoloStar U-300 Insulin) dulaglutide 4.5 mg/0.5 mL 4.5 mg (0.5 mL) subcut QWEEK #2 mL 11/30/21 subcutaneous pen injector (Trulicity) metformin 1,000 mg tablet 1,000 mg PO DAILY 30 days #30 tabs 02/23/22 empagliflozin 25 mg tablet 25 mg PO DAILY #30 tabs 10/26/23 (Jardiance) gabapentin 300 mg capsule 300 mg PO BEDTIME #30 caps 10/26/23 lisinopril 40 mg tablet 40 mg PO DAILY #30 tabs 10/26/23 metformin 1,000 mg tablet 1,000 mg PO BID 1 month #60 tabs 10/26/23 metoprolol succinate 50 mg 50 mg PO DAILY #30 tabs 10/26/23 tablet,extended release 24 hr Allergies Allergy/AdvReac Type Severity Reaction Status Date / Time No Known Allergies Allergy Verified 10/26/23 20:35 Review of Systems 2 Review of Systems: Constitutional : No Weight loss, No Fever, No Chills, No Night Sweats, No Fatigue, No Malaise ENT/Mouth : No Hearing loss, No Ear Pain, No Nasal Congestion, No Sinus Pain, No Hoarseness, No sore throat, No Rhinorrhea, No Swallowing Difficulty Eyes: No Eye Pain, No Swelling, No Redness, No Foreign Body, No Discharge, No Vision Changes Cardiovascular : No Chest Pain, No SOB, No Dyspnea on Exertion, No Orthopnea, No Edema, No Palpitations Respiratory : No Cough, No Sputum, No Wheezing, No Smoke Exposure, No Dyspnea Gastrointestinal : No Nausea, No Vomiting, No Diarrhea, No Constipation, No abdominal Pain, No Hematochezia, No Melena Genitourinary : no irregular bleeding, No Dysuria, No Urinary Frequency, No Hematuria, No Urinary Incontinence, No Urgency, No Flank Pain, No Urinary Flow Changes, No Hesitancy Musculoskeletal : No joint pain, No Myalgias, No Joint Swelling Skin : No Skin Lesions, No rash Neuro : No Weakness, No Numbness, No Paresthesias, No Loss of Consciousness, No Dizziness, No Headache, complaining of neuropathy in both feet Psych : No Anxiety/Panic, No Depression, No SI/HI/AH/VH, No Social Issues, Heme/Lymph: No Bruising, No Bleeding,No Lymphadenopathy Endocrine : No Polyuria, No Polydipsia, No Temperature Intolerance [facility] Past Medical History Medical History GERD (gastroesophageal reflux disease) BMI 50.0-59.9, adult Morbid obesity Neuropathy Vitamin D deficiency Hyperlipidemia Hypertension Type 2 diabetes mellitus with diabetic neuropathy Surgical History Hx of circumcision Family History Family History Father Diabetes Mother Diabetes Social History Social History Household Members: Family Household Members Other:: brothers Alcohol intake: never Patient Tobacco Use Status: Never used Tobacco Advance Directives: No Advance Directives Information Provided: No Do you have a plan to hurt others: No Plan Current occupational status: employed 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 Oriented X3. No acute distress. Eyes: Pupils equal, round and reactive to light. ENT: Pharynx normal. Neck: Normal inspection. Neck supple. No lymph nodes noted. No crepitus CVS: Normal heart rate and rhythm. Pulses normal. Normal S1 and S2 Respiratory: No respiratory distress. Breath sounds normal. No Wheezing. No rales Abdomen: Soft and nontender. No rigidity. No distention. Skin: Skin warm and dry. Normal skin color. Normal skin turgor. Extremities: No lower extremity edema. No Lacerations. No Rash Neuro: Oriented X 3. No motor deficit. No sensory deficit. Moving all extremities. No slurred speech. CN 2 through 12 grossly intact Psych: calm, cooperative, normal affect Course Course Course Narrative: Patient receiving IV fluids, 10 units of insulin -lengthy conversation with the patient regarding the side effects of hyperglycemia, including a reversible neuropathy, kidney damage, permanent damage to the eyes and cardiovascular disease Medications Administered Discontinued Medications Generic Name Dose Route Start Last Admin Trade Name Freq PRN Reason Stop Dose Admin Sodium Chloride 1,000 mls @ 999 mls/hr 10/26/23 21:12 10/26/23 22:49 Ns IVCONT 10/26/23 22:12 Infused .Q1H1M ONE Infusion Insulin Human Regular 10 unit 10/26/23 21:12 10/26/23 21:42 Insulin Regular, Human 100 Unit/Ml 10 Ml Vial IVPUSH 10/26/23 21:13 10 unit ONCE ONE Administration Insulin Human Regular 5 unit 10/26/23 23:16 10/26/23 23:35 Insulin Regular, Human 100 Unit/Ml 10 Ml Vial IVPUSH 10/26/23 23:17 5 unit ONCE ONE Administration Labetalol HCl 10 mg 10/27/23 00:21 10/27/23 00:49 Labetalol Hcl 100 Mg/20 Ml Vial IVPUSH 10/27/23 00:22 Not Given ONCE ONE Lisinopril 20 mg 10/26/23 21:15 10/26/23 21:42 Lisinopril 20 Mg Tablet PO 10/26/23 21:16 20 mg ONCE ONE Administration Protocol Lisinopril 20 mg 10/26/23 22:34 10/26/23 22:50 Lisinopril 20 Mg Tablet PO 10/26/23 22:35 20 mg ONCE ONE Administration Protocol Metoprolol Tartrate 50 mg 10/26/23 21:15 10/26/23 21:42 Metoprolol Tartrate 50 Mg Tablet PO 10/26/23 21:16 50 mg ONCE ONE Administration Protocol Medical Decision Making Medical Decision Making MDM Narrative: -my interpretation of labs, hematology at baseline, chemistry shows a glucose of 437 -patient was given 10 units of insulin IV, IV fluids, glucose improved to 316. Patient is given an additional 5 units, patient's glucose 236 -patient's blood pressure initially in the 190s, received his home dose medications lisinopril 40 mg, metoprolol 50 mg. Blood pressure improved to 145/85 Differential Diagnosis Differential Diagnoses: The differential diagnosis associated with the presentation includes (Hyperglycemia, medication noncompliance, neuropathy) Admission/Observation Consideration of admission/observation: Escalation of care including admission/observation considered (Given patient's labs and vitals admission/observation considering) Consult Healthcare Provider Management of the patient was discussed with: Hospitalist Lab Data MDM Lab Attestation statement: I reviewed the patient's lab results. 10/26/23 20:44 10/26/23 20:44 Labs: Lab Results 10/26/23 10/26/23 10/27/23 Range/Units 20:44 22:52 00:12 WBC 9.9 (4.8-10.8) X10*3/uL RBC 5.27 (4.60-5.80) X10*6/uL Hgb 13.9 L (14.0-18.0) g/dl Hct 41.3 L (42.0-52.0) % MCV 78.4 L (80.0-98.0) fL MCH 26.4 L (27.0-33.0) pg MCHC 33.7 (31.0-36.0) g/dl RDW 12.7 (11.0-16.0) % Plt Count 342 (160-400) X10*3/uL MPV 9.9 (9.4-12.4) fL Immature Gran % (Auto) 0.6 H (0.0-0.4) % Neut % (Auto) 63.6 (45-73) % Lymph % (Auto) 27.9 (20-40) % Simpson % (Auto) 6.1 (2-11) % Eos % (Auto) 1.4 (0-4) % Baso % (Auto) 0.4 (0-2) % Lymph # (Auto) 2.8 (1.2-4.9) X10*3/uL Simpson # (Auto) 0.6 (0.1-1.2) X10*3/uL Eos # (Auto) 0.1 (0.0-0.4) X10*3/uL Baso # (Auto) 0.0 (0.0-0.2) X10*3/uL Abs Immat Gran (auto) 0.06 H (0.00-0.03) X10*3/uL Absolute Neuts (auto) 6.3 (2.0-8.3) x10*3/uL Absolute Nucleated RBC 0.000 (0.0-0.012) X10*3/uL Nucleated RBC % (auto) 0.0 (0.0-0.2) /100WBC Sodium 133 L (135-145) mmol/L Potassium 3.9 (3.3-5.1) mmol/L Chloride 99 (96-108) mmol/L Carbon Dioxide 24 (22-29) mmol/L Anion Gap 14 (12-20) BUN 7 L (9-16) mg/dL Creatinine 0.87 (0.5-1.4) mg/dL Estim Creat Clear Calc 173.1 Estimated GFR > 60 POC Glucose 316 H 236 H (60-115) mg/dL Random Glucose 437 H* (60-115) mg/dL Calcium 9.2 (8.4-10.2) mg/dL Total Bilirubin 0.3 (0.0-1.0) mg/dL AST 19 (5-37) U/L ALT 36 (0-40) U/L Alkaline Phosphatase 106 (39-117) U/L Total Protein 7.4 (6.5-8.0) g/dL Albumin 3.9 (3.5-5.0) g/dL Beta-Hydroxybutyrate 0.09 (0.02-0.27) mmol/L Critical Care Time Critical Care Time Critical Care Time: Yes Total Critical Care Time: 45 Attestation: I have personally provided critical care time. Time includes review of lab data, radiology results, discussion with consultants, and monitoring for potential decompensation. Intervention performed as documented. 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 If you have any worsening or new symptoms, please return to the emergency room or call 911 Prescriptions: New gabapentin 300 mg capsule 300 mg PO BEDTIME Qty: 30 2RF lisinopril 40 mg tablet 40 mg PO DAILY Qty: 30 2RF metformin 1,000 mg tablet 1,000 mg PO BID 30 Days Qty: 60 2RF Jardiance 25 mg tablet 25 mg PO DAILY Qty: 30 2RF metoprolol succinate 50 mg tablet extended release 24 hr 50 mg PO DAILY Qty: 30 2RF No Action atorvastatin 20 mg tablet 20 mg PO BEDTIME Qty: 30 11RF (DME) FreeStyle Urszula 2 [place] Misc See Rx Instructions .ROUTE .MEDSUPPLY Qty: 1 0RF Rx Instructions: As directed (DME) FreeStyle Urszula 2 Sensor Kit See Rx Instructions .ROUTE .MEDSUPPLY Qty: 2 11RF Rx Instructions: As directed insulin aspart U-100 [Novolog FlexPen U-100 Insulin] 100 unit/mL (3 mL) insulin pen See Rx Instructions subcut TID Qty: 45 5RF Rx Instructions: 14 units prior to breakfast/lunch, 24 units prior to dinner subcut 3 times a day; Trulicity 4.5 mg/0.5 mL pen injector 4.5 mg subcut QWEEK Qty: 2 3RF metformin 1,000 mg tablet 1,000 mg PO DAILY 30 Days Qty: 30 4RF metoprolol succinate 100 mg tablet extended release 24 hr 100 mg PO DAILY lisinopril 20 mg tablet 20 mg PO DAILY (DME) FreeStyle Precision Denis Strips Strip See Rx Instructions .ROUTE .MEDSUPPLY Qty: 10 Rx Instructions: As directed cholecalciferol (vitamin D3) 50 mcg (2,000 unit) capsule 50 mcg PO DAILY 30 Days Qty: 30 6RF Rx Instructions: To take while taking vit d 50,000 units weekly (DME) pen needle, diabetic [BD Ultra-Fine Suzy Pen Needle] 32 gauge x 5/32 needle See Rx Instructions .ROUTE .MEDSUPPLY Qty: 125 11RF Rx Instructions: As directed four times a day Jardiance 25 mg tablet 25 mg PO DAILY Qty: 30 3RF gabapentin 300 mg capsule 300 mg PO BEDTIME Creon 6,000-19,000 -30,000 unit capsule,delayed release(DR/EC) 1 cap PO TID gabapentin 300 mg capsule 300 mg PO BEDTIME Kun Samaniego U-300 Insulin 300 unit/mL (1.5 mL) insulin pen 74 unit subcut DAILY 30 Days Qty: 9 3RF cholecalciferol (vitamin D3) 1,250 mcg (50,000 unit) capsule 1,250 mcg PO QWEEK Qty: 8 0RF Rx Instructions: Hold vit D 2,000 units for the 8 weeks taking this medication. Print Language: German
[2023-10-26 21:27] LABS: Beta-Hydroxybutyrate 0.09 mmol/L (0.02-0.27)
[2023-10-26] MEDS: 0.9 % Sodium Chloride 1,000 ML 999 ML IVCONT (21:37)
[2023-10-26] MEDS: lisinopriL 20 MG TABLET PO ×2 (21:42→22:50)
[2023-10-26] MEDS: Metoprolol Tartrate 50 MG TABLET PO (21:42)
[2023-10-26] MEDS: Insulin Regular, Human 100 UNIT/ML 10 ML VIAL 10 UNIT IVPUSH (21:42)
[2023-10-26 22:19] VITALS: BP 175/84; PULSE 105; RESP 18; TEMP 37.1; O2SAT 98
[2023-10-26 22:55] LABS: Glucose, Whole Blood 316 mg/dL (60-115)
[2023-10-26] MEDS: Insulin Regular, Human 100 UNIT/ML 10 ML VIAL IVPUSH (23:35)
[2023-10-27 00:04] VITALS: BP 190/104; PULSE 72; RESP 16; TEMP 36.8; O2SAT 97
[2023-10-27 00:17] LABS: Glucose, Whole Blood 236 mg/dL (60-115)
[2023-10-27 00:44] VITALS: BP 149/85; PULSE 89; RESP 17; O2SAT 98
--- NOTE | 2023-10-27 01:04 | PC.NURSE ---
This float nurse only reviewed discharge instructions with pt. pt verbalized understanding.
[2023-10-27 01:07] VITALS: BP 149/85; PULSE 89; RESP 17; TEMP 36.8; O2SAT 98
== END 2023-10-27 01:08 | disposition home or self-care (01) ==
PROVIDERS: Emergency Provider Emergency Medicine; PCP Family Medicine
DX: E11.40 Type 2 diabetes mellitus with diabetic neuropathy, unspecified (principal); E11.65 Type 2 diabetes mellitus with hyperglycemia; R11.2 Nausea with vomiting, unspecified; I10 Essential (primary) hypertension; Z79.4 Long term (current) use of insulin; Z79.899 Other long term (current) drug therapy
CPT/HCPCS: 36415; 80053; 82010; 82947; 85025; 96361; 96374; 96376; 99284

== ENCOUNTER 2023-11-28 12:34 | Outpatient (REF) | payer BC, OTHER, SELFPAY ==
[2023-11-28 14:23] LABS: Estimated Average Glucose 263 mg/dL; Hemoglobin A1c % 10.8 % (<6.0)
[2023-11-28 14:35] LABS: Alanine Aminotransferase 36 U/L (0-40); Aspartate Amino Transferase 18 U/L (5-37); Cholesterol 186 mg/dL (<200); Glucose Fasting 212 mg/dL (60-99); HDL Cholesterol 40 mg/dL (>40); LDL Cholesterol Calculated 121 mg/dL (<100); Triglycerides 126 mg/dL (<150)
[2023-11-28 18:11] LABS: Microalbum/Creatinine Ratio Ur 34.1 ug/mg cr (<30)
== END 2023-11-28 12:35 | disposition home or self-care (01) ==
LOC: HO.LAB 12:34
PROVIDERS: PCP Family Medicine; Visit Provider Family Medicine
DX: E11.9 Type 2 diabetes mellitus without complications (principal); E78.00 Pure hypercholesterolemia, unspecified; K75.81 Nonalcoholic steatohepatitis (NASH)
CPT/HCPCS: 36415; 80061; 82043; 82550; 82570; 82947; 83036; 84450; 84460

== ENCOUNTER 2023-12-01 16:01 | Emergency (ER) | payer BC, OTHER, SELFPAY ==
[2023-12-01 16:18] VITALS: BP 198/115; PULSE 109; RESP 20; TEMP 36.5; O2SAT 95; BMI 54.0
--- NOTE | 2023-12-01 16:20 | ED_ITS ---
HPI - General Adult General Chief complaint: Extremity Injury, Lower Stated complaint: muscle spasm rt hip to knee Time Seen by Provider: 12/01/23 16:48 Source: patient Mode of arrival: ambulatory Limitations: no limitations History of Present Illness ED Provider: Heather Cheek APRN HPI narrative: 32-year-old male with a history of hypertension, hyperlipidemia, diabetes, diabetic neuropathy with complaints of pain from his right hip radiating down to the right knee described as muscle spasm. Patient reports this began this afternoon. He denies any associated numbness, tingling, bowel or bladder incontinence, numbness in the groin, fevers or chills. Patient is ambulatory. Patient took his home gabapentin with continued pain. Related Data Home Medications ?Medication ?Instructions ?Recorded ?Confirmed lisinopril 20 mg tablet 20 mg PO DAILY 02/13/20 08/19/21 metoprolol succinate 100 mg 100 mg PO DAILY 02/13/20 08/19/21 tablet,extended release 24 hr blood sugar diagnostic #10 ea 05/21/20 08/16/20 gabapentin 300 mg capsule 300 mg PO BEDTIME 11/18/20 06/17/21 yhopeo-mrsouayq-pokgqya 1 cap PO TID 06/17/21 08/19/21 6,000-19,000-30,000 unit capsule,delayed rel (Creon) gabapentin 300 mg capsule 300 mg PO BEDTIME 08/19/21 08/19/21 Previous Rx's ?Medication ?Instructions ?Recorded cholecalciferol (vitamin D3) 50 50 mcg PO DAILY 30 days #30 caps 05/21/20 mcg (2,000 unit) capsule empagliflozin 25 mg tablet 25 mg PO DAILY #30 tabs 06/25/20 (Jardiance) pen needle, diabetic 32 gauge x #125 ea 06/25/20 (BD Ultra-Fine Suzy Pen Needle) atorvastatin 20 mg tablet 20 mg PO BEDTIME #30 tabs 03/31/21 flash glucose scanning reader #1 ea 05/09/21 (FreeStyle Urszula 2 [place]) flash glucose sensor (FreeStyle #2 ea 08/09/21 Urszula 2 Sensor kit) insulin aspart U-100 100 unit/mL See Rx Instructions subcut TID #45 08/11/21 (3 mL) subcutaneous pen (Novolog mL FlexPen U-100 Insulin aspart) cholecalciferol (vitamin D3) 1,250 1,250 mcg PO QWEEK #8 caps 08/19/21 mcg (50,000 unit) capsule insulin glargine U-300 conc 300 74 unit (0.2467 mL) subcut DAILY 08/19/21 unit/mL (1.5 mL) subcutaneous pen 30 days #9 mL (Toujeo SoloStar U-300 Insulin) dulaglutide 4.5 mg/0.5 mL 4.5 mg (0.5 mL) subcut QWEEK #2 mL 11/30/21 subcutaneous pen injector (Trulicity) metformin 1,000 mg tablet 1,000 mg PO DAILY 30 days #30 tabs 02/23/22 empagliflozin 25 mg tablet 25 mg PO DAILY #30 tabs 10/26/23 (Jardiance) gabapentin 300 mg capsule 300 mg PO BEDTIME #30 caps 10/26/23 lisinopril 40 mg tablet 40 mg PO DAILY #30 tabs 10/26/23 metformin 1,000 mg tablet 1,000 mg PO BID 1 month #60 tabs 10/26/23 metoprolol succinate 50 mg 50 mg PO DAILY #30 tabs 10/26/23 tablet,extended release 24 hr cyclobenzaprine 10 mg tablet 10 mg PO TID PRN muscle spasm #15 12/01/23 tabs diclofenac sodium 1 % topical gel 2 g topical QID #100 grams 12/01/23 (Voltaren Arthritis Pain) Allergies Allergy/AdvReac Type Severity Reaction Status Date / Time No Known Allergies Allergy Verified 12/01/23 16:20 Review of Systems 2 Review of Systems: Yes all other systems are reviewed and are negative Constitutional: Constitutional: Reports no additional constitutional complaints, Denies body ache(s), Denies chills, Denies fever(s), Denies headache(s) and Denies weakness Eyes: Eyes: Reports no additional eye complaints and Denies change in vision ENT: Reports system reviewed and no additional complaints, except as documented, Denies dizziness, Denies headache(s), Denies nasal congestion, Denies nasal discharge and Denies neck pain Cardiovascular: Cardiovascular: Reports no additional cardiovascular complaints, Denies chest pain, Denies leg edema and Denies dyspnea Respiratory: Respiratory: Reports no additional respiratory complaints, Denies cough and Denies dyspnea Gastrointestinal: Gastrointestinal: Reports no additional gastrointestinal complaints, Denies abdominal pain, Denies diarrhea, Denies nausea and Denies vomiting Genitourinary: Genitourinary: Denies urinary incontinence Musculoskeletal: Musculoskeletal: Reports no additional musculoskeletal complaints, Denies back pain, Denies arthralgias, Denies joint swelling, Denies neck pain, Denies numbness, Reports radiating pain into limb and Denies tingling Integumentary/Breasts: Skin/Breast: Reports system reviewed and no additional complaints, except as docu and Denies rash Neurologic: Reports system reviewed and no additional complaints, except as documented, Denies Abnormal speech present, Denies dizziness, Denies headache(s), Denies numbness, Denies tingling and Denies weakness PMF Past Medical History Attestation statement: The following information was validated with the patient. Source: old records reviewed and nursing notes reviewed Medical History GERD (gastroesophageal reflux disease) BMI 50.0-59.9, adult Morbid obesity Neuropathy Vitamin D deficiency Hyperlipidemia Hypertension Type 2 diabetes mellitus with diabetic neuropathy Surgical History Hx of circumcision Family History Family History Father Diabetes Mother Diabetes Social History Social History Household Members: Family Household Members Other:: brothers Alcohol intake: never Patient Tobacco Use Status: Never used Tobacco Advance Directives: No Advance Directives Information Provided: No Current occupational status: employed Current occupation: [employer] Physical Exam ED Vital Signs: Vital Signs - 24 hr 12/01/23 16:18 Temperature 97.7 F Pulse Rate 109 H Respiratory Rate 20 Blood Pressure 198/115 H Pulse Oximetry 95 Oxygen Delivery Method Room Air BMI result Body Mass Index 54.0 Const General: cooperative, healthy appearing, comfortable and no acute distress Orientation/consciousness: patient oriented x3 Limitations: no limitations HENMT Head: Yes normal to inspection Ears: hearing grossly normal bilaterally General nose exam: Normal external nose present Face and sinus: Yes normal facial exam Mouth: Normal oral and palatal mucosa present Throat: Yes posterior oropharynx normal Eyes General: appearance normal, both eyes and all related structures Pupils: Equal, round and reactive pupils present Neck Neck: Yes normal visual inspection Chest Chest palpation & inspection: normal inspection of the chest Resp Effort & Inspection: normal respiratory effort Auscultation: clear to auscultation bilaterally Cardio Rate: regular rate Rhythm: regular rhythm Peripheral pulses: Peripheral pulses 2+ throughout GI Inspection: Yes normal to inspection Palpation (GI): Soft to palpation and nontender Auscultation: normal bowel sounds Back/Spine/Pelvis Thoracic/Lumbar Spine: thoracic and lumbar spine normal to inspection Skin General skin exam: no rashes or lesions noted Neuro General: patient oriented x3, moves all extremities, no focal motor deficits and normal sensation to monofilament Cranial nerves: Yes Equal, round and reactive pupils present Cognition (Neuro): normal cognition Speech: No Abnormal speech present Gait exam (Neuro): Normal gait present Motor exam (neuro): 5/5 motor strength present throughout Deep tendon reflexes (DTR's): Right patellar reflex intensity grade: 2+ and Left patellar reflex intensity grade: 2+ Extrem General: Yes normal to inspection Upper/lower leg/hip images: 2 1. Pain on palpation Course Course Course Narrative: RME performed by Veronique Saenz PA-C. Patient is a 32 year old assigned male at presenting to the emergency department with a left upper leg muscle spasm. Detailed physical exam and review of systems are deferred to the print finisher. Patient placed back in the waiting room pending room availability. Reevaluation(s) Reevaluation #1: Feeling improved. Patient be discharged home with supportive measures. Reviewed worrisome signs and symptoms of when to return to the emergency room. Comfortable plan for discharge home. Medications Administered Discontinued Medications Generic Name Dose Route Start Last Admin Trade Name Freq PRN Reason Stop Dose Admin Cyclobenzaprine HCl 10 mg 12/01/23 16:54 12/01/23 17:00 Cyclobenzaprine Hcl 10 Mg Tablet PO 12/01/23 16:55 10 mg ONCE ONE Administration Ketorolac Tromethamine 30 mg 12/01/23 16:54 12/01/23 17:02 Ketorolac Tromethamine 30 Mg/Ml Vial IM 12/01/23 16:55 30 mg ONCE ONE Administration Medical Decision Making Medical Decision Making MDM Narrative: 32-year-old male with a history of hypertension, hyperlipidemia, diabetes, diabetic neuropathy with complaints of pain from his right hip radiating down to the right knee described as muscle spasm. Patient reports this began this afternoon. He denies any associated numbness, tingling, bowel or bladder incontinence, numbness in the groin, fevers or chills. Patient is ambulatory. Patient took his home gabapentin with continued pain. Pain on palpation over the right lateral thigh with palpable muscle spasm. No neurological deficits or red flag symptoms. Will provide analgesia and reassess Differential Diagnosis Differential Diagnoses: The differential diagnosis associated with the presentation includes Radiculopathy, muscle spasm Low suspicion for fracture, dislocation, cauda equina Admission/Observation Consideration of admission/observation: Escalation of care including admission/observation considered No neurological deficits or red flag symptoms to warrant advanced imaging, hospitalization Tests considered The following testing was considered but not selected: no neurological deficits or red flag symptoms to warrant advanced imaging Prescription Management I considered prescription management with: Pain Medication Discharge Plan Discharge Clinical Impression: Muscle spasm Patient Disposition: Home, Self-Care Instructions: Muscle Spasm (ED) Additional Instructions: Heat or ice to the area Gentle stretching Massage the area Prescriptions: New cyclobenzaprine 10 mg tablet 10 mg PO TID PRN (Reason: muscle spasm) Qty: 15 0RF diclofenac sodium [Voltaren Arthritis Pain] 1 % gel 2 g topical QID Qty: 100 0RF Rx Instructions: apply to affected area No Action atorvastatin 20 mg tablet 20 mg PO BEDTIME Qty: 30 11RF (DME) FreeStyle Urszula 2 [place] [facility] [place] See Rx Instructions .ROUTE .MEDSUPPLY Qty: 1 0RF Rx Instructions: As directed (DME) FreeStyle Urszula 2 Sensor Kit See Rx Instructions .ROUTE .MEDSUPPLY Qty: 2 11RF Rx Instructions: As directed insulin aspart U-100 [Novolog FlexPen U-100 Insulin] 100 unit/mL (3 mL) insulin pen See Rx Instructions subcut TID Qty: 45 5RF Rx Instructions: 14 units prior to breakfast/lunch, 24 units prior to dinner subcut 3 times a day; Trulicity 4.5 mg/0.5 mL pen injector 4.5 mg subcut QWEEK Qty: 2 3RF metformin 1,000 mg tablet 1,000 mg PO DAILY 30 Days Qty: 30 4RF gabapentin 300 mg capsule 300 mg PO BEDTIME Qty: 30 2RF lisinopril 40 mg tablet 40 mg PO DAILY Qty: 30 2RF metformin 1,000 mg tablet 1,000 mg PO BID 30 Days Qty: 60 2RF Jardiance 25 mg tablet 25 mg PO DAILY Qty: 30 2RF metoprolol succinate 50 mg tablet extended release 24 hr 50 mg PO DAILY Qty: 30 2RF metoprolol succinate 100 mg tablet extended release 24 hr 100 mg PO DAILY lisinopril 20 mg tablet 20 mg PO DAILY (DME) FreeStyle Precision Denis Strips Strip See Rx Instructions .ROUTE .MEDSUPPLY Qty: 10 Rx Instructions: As directed cholecalciferol (vitamin D3) 50 mcg (2,000 unit) capsule 50 mcg PO DAILY 30 Days Qty: 30 6RF Rx Instructions: To take while taking vit d 50,000 units weekly (DME) pen needle, diabetic [BD Ultra-Fine Suzy Pen Needle] 32 gauge x 5/32 needle See Rx Instructions .ROUTE .MEDSUPPLY Qty: 125 11RF Rx Instructions: As directed four times a day Jardiance 25 mg tablet 25 mg PO DAILY Qty: 30 3RF gabapentin 300 mg capsule 300 mg PO BEDTIME Creon 6,000-19,000 -30,000 unit capsule,delayed release(DR/EC) 1 cap PO TID gabapentin 300 mg capsule 300 mg PO BEDTIME Tounoemi SoloStar U-300 Insulin 300 unit/mL (1.5 mL) insulin pen 74 unit subcut DAILY 30 Days Qty: 9 3RF cholecalciferol (vitamin D3) 1,250 mcg (50,000 unit) capsule 1,250 mcg PO QWEEK Qty: 8 0RF Rx Instructions: Hold vit D 2,000 units for the 8 weeks taking this medication. Referrals: Torito Cooley MD [Primary Care Provider] - 1 week Stand Alone Forms: Work/School Release Print Language: Yemeni
[2023-12-01] MEDS: Cyclobenzaprine HCl 10 MG TABLET PO (17:00)
[2023-12-01] MEDS: Ketorolac Tromethamine 30 MG/ML VIAL IM (17:02)
[2023-12-01 17:36] VITALS: BP 170/99; PULSE 104; RESP 18; TEMP 36.6; O2SAT 97
== END 2023-12-01 17:37 | disposition home or self-care (01) ==
PROVIDERS: Emergency Provider Emergency Medicine; PCP Family Medicine
DX: M62.838 Other muscle spasm (principal); M79.604 Pain in right leg; E11.9 Type 2 diabetes mellitus without complications; I10 Essential (primary) hypertension; E78.5 Hyperlipidemia, unspecified
CPT/HCPCS: 96372; 99283; 99284; J1885

== ENCOUNTER → 2024-02-12 11:26 | Outpatient (BNVA) | payer BC, OTHER, SELFPAY | PROVIDERS: PCP Family Medicine ==

== ENCOUNTER 2024-02-18 09:02 | Outpatient (AMB) | payer OTHER, SELFPAY ==
--- NOTE | 2024-02-18 09:09 | A.OFFVIS_ITS ---
Vital Signs 02/18/24 09:11 Height 5 ft 8 in Weight 353 lb 13.471 oz BMI 53.8 BP 120/86 Blood Pressure Location Lt brachial Position Sitting Pulse 99 Pulse Source Pulse Oximeter Intake Visit Reasons: T2DM/#Not in service, unable to lvm Intake Note: Patient presents today for D2MT follow up visit. Last Diabetic Eye exam: 2021 Last Podiatry Visit: Doesn't have one Random Glucose: 242 mg/dl HgA1c: 10.8% 11/28/23 Supervisor/Port Director Required: No Accompanied by: Self / Same As Patient Allergies No Known Allergies Allergy (Verified 02/18/24 09:17) Medication List - Last Reconciled 02/18/24 by Carolyn Melgoza PA-C blood sugar diagnostic As directed empagliflozin (Jardiance) 25 mg PO DAILY flash glucose scanning reader (FreeStyle Urszula 2 [place]) As directed flash glucose sensor (FreeStyle Urszula 2 Sensor kit) As directed gabapentin 300 mg PO BEDTIME lisinopril 20 mg PO DAILY metformin 1,000 mg PO BID 1 month metoprolol succinate ER 50 mg PO DAILY pen needle, diabetic (BD Ultra-Fine Suzy Pen Needle) As directed four times a day HPI HPI T2DM/#Not in service, unable to lvm: Details: Patient is a 33-year-old male with a significant past medical history of morbid obesity, hypertension, hyperlipidemia, type 2 diabetes, fatty liver presenting today for a follow up regarding his diabetes. He was last seen in endocrinology in 2021 by Katja. Sally: Dm-last A1c was 10.8. He was diagnosed with diabetes approximately 7 years ago. He states everyone in his family has type 2 diabetes. He is currently on Jardiance 25 mg and metformin 1000 mg twice a day. -He states 2 years ago he lost insurance and then was lost to follow up by endo and pcp. He states that only over the last few months he started to be seen again by pcp. -for the last 2 years he states he has struggled with getting medications, insulins, dm supplies, etc. -He used to be on toujeo u300 74 units but had issues with getting this covered by insurance. He was usually compliant with it but did find it wearing off. Graffcitlali fox, he states he was having issues being compliant with it. He also used to be on humalog but had a hard time remembering to take it. -He was on trulicity 4.5 mg in the past and tolerated this well but felt like it was ineffective. He never noticed any decrease blood sugars. He used to be on a cgm but has been out of them for the last 2 years due to his noncompliance/ He is on a statin and ANIRUDH inhibitor. Hypoglycemia-states he has not had any episodes in the last few years. Hyperglycemia-does notice increased thirst and urination with this. Scheduled to see Ophthalmology in March. He does have chronic peripheral neuropathy due to his diabetes. He is on gabapentin for this. CV: Blood pressure today in the office is 120/86. He is currently on lisinopril 20 mg and metoprolol 50 mg QAM and 100 mg QPM. Cholesterol used to be managed by atorvastatin but he has not been on medications in a couple years. Per pt tolerated well. [facility] Medical History GERD (gastroesophageal reflux disease) BMI 50.0-59.9, adult Morbid obesity Neuropathy Vitamin D deficiency Hyperlipidemia Hypertension Type 2 diabetes mellitus with diabetic neuropathy Surgical History Hx of circumcision Family History Father Diabetes Mother Diabetes Social History (Updated 02/12/24 @ 13:09 by Stella Romo) Household Members: Family Household Members Other:: brothers Housing: Apartment Alcohol intake: never Patient Tobacco Use Status: Never used Tobacco Current occupational status: unemployed and disabled Physical Exam Const Orientation/consciousness: patient oriented x3 Neck Neck: Yes no lymphadenopathy Thyroid: Thyroid normal Carotids: no bruits Resp Auscultation: clear to auscultation bilaterally Cardio Rate: regular rate Rhythm: regular rhythm Heart sounds: S1 normal heart sound present and S2 normal heart sound present Peripheral pulses: dorsalis pedis present Neuro General: patient oriented x3, gait normal and no focal motor deficits Extrem Other: Monofilament sensation diminished bilaterally. Vibratory sensation intact bilaterally. Skin intact. General: Yes normal to inspection Results Reviewed Results Reviewed: Laboratory Tests 10/26/23 11/28/23 20:44 12:52 Creatinine 0.87 Estim Creat Clear Calc 173.1 Estimated GFR > 60 Fasting Glucose 212 H Estimat Average Glucose 263 Hemoglobin A1c % 10.8 H AST 18 ALT 36 Total Creatine Kinase 75 Triglycerides 126 Cholesterol 186 LDL Cholesterol, Calc 121 H HDL Cholesterol 40 L Urine Creatinine 568.86 Urine Microalbumin 194.0 Microalb/Creat Ratio 34.1 H Assessment & Plan Assessment & Plan (1) Uncontrolled type 2 diabetes mellitus with hyperglycemia, with long-term current use of insulin: Code(s): E11.65 - Type 2 diabetes mellitus with hyperglycemia; Z79.4 - exterminator (current) use of insulin Category: Medical Plan: We will start Tresiba given the previous very high doses of Toujeo that patient states were not very effective and would wear off. Reports having plenty of insulin pen needles at home. We will start with 10 units nightly. I will also start him on Ozempic. We reviewed risks and benefits and adverse effects such as nausea, vomiting, increased risk of pancreatitis, thyroid malignancies etc.. We discussed the benefits of weight loss with this and his obesity at length. We discussed diet. I have encouraged him to reduce his carbohydrate it increase his exercise. 365Scorese 3 ordered. He does not have a working phone therefore I will also order reader. We spent more than an hour in [id number] time discussing the pathophysiology o f diabetes, the difference of type 1 and type 2 diabetes and signs and symptoms of hyper and hypoglycemia that would require emergent medical treatment. We reviewed complications of poorly controlled diabetes as well including but not limited to kidney disease, nerve damage, increased risk of heart attack, stroke, blindness, infections, amputations. Short term follow up in 1-2 weeks. (2) Hypertension: Code(s): I10 - Essential (primary) hypertension Category: Medical Qualifiers: Hypertension type: essential hypertension Qualified Code(s): I10 - Essential (primary) hypertension Plan: Continue current regimen. Blood pressure better that it was in November. (3) Hyperlipidemia: Code(s): E78.5 - Hyperlipidemia, unspecified Category: Medical Qualifiers: Hyperlipidemia type: unspecified Qualified Code(s): E78.5 - Hyperlipidemia, unspecified Plan: He is going to work on diet changes. We did review his last cholesterol and discuss possibly starting atorvastatin in the future. (4) Morbid obesity: Code(s): E66.01 - Morbid (severe) obesity due to excess calories Category: Medical Plan: As above. Start Ozempic. Orders: Orders Basic Metabolic Panel Today E11.65 - Type 2 diabetes mellitus with hyperglycem ia, E66.01 - Morbid (severe) obesity due to excess calories, E78.5 - Hyperlipidemia, unspecified, I10 - Essential (primary) hypertension, Z79.4 - exterminator (current) use of insulin Hemoglobin A1c Today E11.65 - Type 2 diabetes mellitus with hyperglycemia, E66.01 - Morbid (severe) obesity due to excess calories, E78.5 - Hyperlipidemia, unspecified, I10 - Essential (primary) hypertension, Z79.4 - care home (current) use of insulin Medications: New 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 meter,continuous (FreeStyle Urszula 3 [place]) Use daily As directed to monitor blood glucose 1 ea 0RF E11.65 - Type 2 diabetes mellitus with hyperglycemia, Z79.4 - exterminator (current) use of insulin 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 sensor (FreeStyle Urszula 3 Sensor device) Apply every 14 days As directed to monitor blood glucose 2 ea 11RF E11.9 - Type 2 diabetes mellitus without complications, Z79.4 - exterminator (current) use of insulin insulin degludec (Tresiba FlexTouch U-200 insulin) 10 units (0.05 mL) subcut BEDTIME 9 mL 2RF semaglutide (Ozempic) for 4 weeks 0.25 mg (0.368 mL) subcut QWEEK 3 mL 2RF Discontinued flash glucose scanning reader (FreeStyle Urszula 2 [place]) Discontinued Reason: Doctor's Order As directed 1 ea 0RF E11.40 - Type 2 diabetes mellitus with diabetic neuropathy, unspecified flash glucose sensor (FreeStyle Urszula 2 Sensor kit) Discontinued Reason: Duplicate As directed 2 ea 11RF E11.40 - Type 2 diabetes mellitus with diabetic neuropathy, unspecified Coding Level of Care Code Est Pt Level 5 (29091) Complex EM visit Add On G2211 Diagnoses Uncontrolled type 2 diabetes mellitus with hyperglycemia, with long-term current use of insulin E11.65; Z79.4 Essential hypertension I10 Hypertension type: essential hypertension Hyperlipidemia, unspecified hyperlipidemia type E78.5 Hyperlipidemia type: unspecified Morbid obesity E66.01
[2024-02-18 09:11] VITALS: BP 120/86; PULSE 99; BMI 53.8
[2024-02-18 09:26] LABS: Glucose, Whole Blood 242 mg/dL (60-115)
== END 2024-02-18 09:55 | disposition home or self-care (01) ==
PROVIDERS: PCP Family Medicine; Visit Provider Physician Assistant
DX: E11.65 Type 2 diabetes mellitus with hyperglycemia (principal); Z79.4 Long term (current) use of insulin; E66.01 Morbid (severe) obesity due to excess calories; Z68.43 Body mass index [BMI] 50.0-59.9, adult; I10 Essential (primary) hypertension; E78.5 Hyperlipidemia, unspecified

== ENCOUNTER → 2024-02-18 09:02 | Outpatient (BNVA) | payer OTHER, SELFPAY | PROVIDERS: PCP Family Medicine; Visit Provider Physician Assistant | DX: E11.65 Type 2 diabetes mellitus with hyperglycemia (principal); I10 Essential (primary) hypertension; E78.5 Hyperlipidemia, unspecified; E66.01 Morbid (severe) obesity due to excess calories; Z79.4 Long term (current) use of insulin | CPT/HCPCS: 82947; 99212 ==

== ENCOUNTER → 2024-02-26 11:09 | Outpatient (BNVA) | payer OTHER, SELFPAY | PROVIDERS: PCP Family Medicine ==

== ENCOUNTER 2024-03-03 09:01 | Outpatient (AMB) | payer OTHER, SELFPAY ==
--- NOTE | 2024-03-03 09:02 | A.OFFVIS_ITS ---
Vital Signs 03/03/24 09:06 Height 5 ft 8 in Weight 350 lb 8.56 oz BMI 53.3 BP 116/78 Blood Pressure Location Rt brachial Position Sitting Pulse 96 Pulse Source Pulse Oximeter Intake Visit Reasons: DM/CONFIRMED Intake Note: Patient presents today for [facility] follow up visit. Last Diabetic Eye exam: 2021 Last Podiatry Visit: Doesn't have one Most Recent HgA1c: 10.0% , 03/03/2024 Random Glucose: 284 mg/dL, Today Card Feeder Required: No Accompanied by: Self / Same As Patient Allergies No Known Allergies Allergy (Verified 03/03/24 09:03) Medication List - Last Reconciled 03/03/24 by Carolyn Melgoza PA-C blood sugar diagnostic As directed 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 meter,continuous (FreeStyle Urszula 3 [place]) Use daily As directed to monitor blood glucose 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 sensor (FreeStyle Urszula 3 Sensor device) Apply every 14 days As directed to monitor blood glucose empagliflozin (Jardiance) 25 mg PO DAILY gabapentin 300 mg PO BEDTIME insulin degludec (Tresiba FlexTouch U-200 insulin) 10 units (0.05 mL) subcut BEDTIME lisinopril 20 mg PO DAILY metformin 1,000 mg PO BID 1 month metoprolol succinate ER 50 mg PO DAILY pen needle, diabetic (BD Ultra-Fine Suzy Pen Needle) As directed four times a day semaglutide (Ozempic) 0.25 mg (0.368 mL) subcut QWEEK HPI HPI DM/CONFIRMED: Details: Patient is a 33-year-old male with a significant past medical history of morbid obesity, hypertension, hyperlipidemia, type 2 diabetes, fatty liver presenting today for a follow up regarding his diabetes. He was last seen by myself a couple weeks ago after not being seen for a couple years. Endo: Dm-last A1c was 10.8. Today it is 10. He was diagnosed with diabetes approximately 7 years ago. He states everyone in his family has type 2 diabetes. At our last visit I switched him from Toujeo to Tresiba and added Ozempic to his regimen. He is currently on Tresiba 10 units, Ozempic 0.25 mg weekly, metformin 1000 mg twice a day, Jardiance 25 mg daily. -He states the tresiba he hasn't started yet. He did pick it up but never picked up the pen needles and states that those are ready at the pharmacy. His freestyle Urszula authorization was approved on Sunday. He states he will pick this up today along with the pen needles to start using the Tresiba. His blood sugar today in the office is 284. -He was on trulicity 4.5 mg in the past and tolerated this well but felt like it was ineffective. He never noticed any decrease blood sugars. He is on a statin and ANIRUDH inhibitor. Hypoglycemia-states he has not had any episodes in the last few years. Hyperglycemia-does notice increased thirst and urination with this. Scheduled to see Ophthalmology in March. He does have chronic peripheral neuropathy due to his diabetes. He is on g abapentin for this. CV: Blood pressure today in the office is 116/78. He is currently on lisinopril 20 mg and metoprolol 50 mg QAM and 100 mg QPM. Cholesterol used to be managed by atorvastatin but he has not been on medications in a couple years. Per pt tolerated well. He states he really would like to try some diet changes before he starts taking atorvastatin. 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 [employer] Physical Exam Vital Signs: BMI result Body Mass Index 53.3 Const Orientation/consciousness: patient oriented x3 Neck Neck: Yes no lymphadenopathy Thyroid: Thyroid normal Carotids: no bruits Resp Auscultation: clear to auscultation bilaterally Cardio Rate: regular rate Rhythm: regular rhythm Heart sounds: S1 normal heart sound present and S2 normal heart sound present Neuro General: patient oriented x3, gait normal and no focal motor deficits Results AMB Hemoglobin A1c AMB Hemoglobin A1c 10.0 % Last Edit by STEVAN Medina on 03/03/24 09:1 9 Results Reviewed Results Reviewed: Laboratory Tests 03/03/24 03/03/24 09:03 09:11 Glucose (Clinic) 284 H Hgb A1c (Clinic) 10.0 H Assessment & Plan Assessment & Plan (1) Uncontrolled type 2 diabetes mellitus with hyperglycemia, with long-term current use of insulin: Code(s): E11.65 - Type 2 diabetes mellitus with hyperglycemia; 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 He is tolerating Ozempic well but did have some GI discomfort when he 1st started it. Just started it on Sunday. We will give this some more time and follow up before increasing the dosage. Continue with the metformin and Jardiance. 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 Follow up in 1 month. Sooner if needed. (2) Hypertension: Code(s): I10 - Essential (primary) hypertension Category: Medical Qualifiers: Hypertension type: essential hypertension Qualified Code(s): I10 - Essential (primary) hypertension Plan: WNL. Continue current regimen (3) Hyperlipidemia: Code(s): E78.5 - Hyperlipidemia, unspecified Category: Medical Qualifiers: Hyperlipidemia type: unspecified Qualified Code(s): E78.5 - Hyperlipidemia, unspecified Plan: Is going to work on a low-fat diet. We will monitor in a few months we will recheck lipids. (4) Morbid obesity: Code(s): E66.01 - Morbid (severe) obesity due to excess calories Category: Medical Plan: On Ozempic. We did discuss lifestyle modifications. He has lost 3 lb since our last visit. 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
[2024-03-03 09:06] VITALS: BP 116/78; PULSE 96; BMI 53.3
[2024-03-03 09:14] LABS: Glucose, Whole Blood 284 mg/dL (60-115)
== END 2024-03-03 09:26 | disposition home or self-care (01) ==
PROVIDERS: PCP Family Medicine; Visit Provider Physician Assistant
DX: E11.65 Type 2 diabetes mellitus with hyperglycemia (principal); Z79.4 Long term (current) use of insulin; I10 Essential (primary) hypertension; E78.5 Hyperlipidemia, unspecified; E66.01 Morbid (severe) obesity due to excess calories

== ENCOUNTER → 2024-03-03 09:01 | Outpatient (BNVA) | payer OTHER, SELFPAY | PROVIDERS: PCP Family Medicine; Visit Provider Physician Assistant | DX: E11.65 Type 2 diabetes mellitus with hyperglycemia (principal); I10 Essential (primary) hypertension; E78.5 Hyperlipidemia, unspecified; E66.01 Morbid (severe) obesity due to excess calories; Z68.43 Body mass index [BMI] 50.0-59.9, adult; Z79.4 Long term (current) use of insulin; Z79.85 Long-term (current) use of injectable non-insulin antidiabetic drugs | CPT/HCPCS: 82947; 83036; 99212 ==

== ENCOUNTER → 2024-03-04 12:17 | Outpatient (BNVA) | payer OTHER, SELFPAY | PROVIDERS: PCP Family Medicine ==

== ENCOUNTER 2024-04-03 14:55 | Outpatient (REF) | payer OTHER, SELFPAY ==
[2024-04-03 16:00] LABS: Estimated Average Glucose 197 mg/dL; Hemoglobin A1C 274.9395 umol/L; Hemoglobin A1c % 8.5 % (<6.0); Total Hemoglobin (HGBA1C) 3969.5779 umol/L
[2024-04-03 16:04] LABS: Anion Gap 16 (12-20); Blood Urea Nitrogen 10 mg/dL (9-16); Calcium 10.3 mg/dL (8.4-10.2); Carbon Dioxide 24 mmol/L (22-29); Chloride 102 mmol/L (96-108); Estimated Glomerular Filt Rate > 60; Glucose Random 142 mg/dL (60-115); Potassium 4.5 mmol/L (3.3-5.1); Sodium 137 mmol/L (135-145)
== END 2024-04-03 14:56 | disposition home or self-care (01) ==
LOC: HO.LAB 14:55
PROVIDERS: PCP Family Medicine; Visit Provider Physician Assistant
DX: E11.65 Type 2 diabetes mellitus with hyperglycemia (principal); Z79.4 Long term (current) use of insulin; E78.5 Hyperlipidemia, unspecified; I10 Essential (primary) hypertension; E66.01 Morbid (severe) obesity due to excess calories
CPT/HCPCS: 36415; 80048; 83036

== ENCOUNTER 2024-04-07 10:42 | Outpatient (REF) | payer OTHER, SELFPAY ==
[2024-04-07 13:33] LABS: Alanine Aminotransferase 36 U/L (0-40); Albumin Level 4.3 g/dL (3.5-5.0); Alkaline Phosphatase 80 U/L (39-117); Aspartate Amino Transferase 24 U/L (5-37); Bilirubin Direct 0.1 mg/dL (0.0-0.5); Bilirubin Total 0.4 mg/dL (0.0-1.0); Total Protein 7.9 g/dL (6.5-8.0)
[2024-04-17 14:14] LABS: FIB-ALT 27 U/L (9-46); FIB-Alpha-2-Macroglobulin 167 mg/dL (106-279); FIB-Apolipoprotein A1 127 mg/dL (94-176); FIB-GGT 21 U/L (3-90); FIB-Haptoglobin 226 mg/dL (43-212); FIB-Total Bilirubin 0.3 mg/dL (0.2-1.2); Liver Fibrosis Score 0.07; Liver Fibrosis Stage F0; Nec Inflam Act Grade A0; Nec Inflam Act Score 0.09; Reference ID 5232590
== END 2024-04-07 10:43 | disposition home or self-care (01) ==
LOC: HO.LAB 10:42
PROVIDERS: Absent Provider Family Medicine; PCP Family Medicine; Visit Provider Physician Assistant
DX: K75.81 Nonalcoholic steatohepatitis (NASH) (principal); E78.5 Hyperlipidemia, unspecified; E66.01 Morbid (severe) obesity due to excess calories; E11.65 Type 2 diabetes mellitus with hyperglycemia; Z79.4 Long term (current) use of insulin; E83.52 Hypercalcemia; Z91.199 Patient's noncompliance with other medical treatment and regimen due to unspecified reason; I10 Essential (primary) hypertension
CPT/HCPCS: 36415; 80076; 81596; 82947; 99212

== ENCOUNTER 2024-04-07 10:42 | Outpatient (AMB) | payer OTHER, SELFPAY ==
[2024-04-07 10:47] VITALS: BP 118/76; PULSE 95; BMI 52.0
--- NOTE | 2024-04-07 10:47 | A.OFFVIS_ITS ---
Vital Signs 04/07/24 10:47 Height 5 ft 8 in Weight 341 lb 11.464 oz BMI 52.0 BP 118/76 Blood Pressure Location Lt brachial Position Sitting Pulse 95 Pulse Source Pulse Oximeter Intake Visit Reasons: DM/LVM Intake Note: Patient presents today for [facility] follow up visit. Last Diabetic Eye exam: Two years ago Last Podiatry Visit:Doesn't have one Random Glucose: 156 mg/dl HgA1c: 10.0% 03/03/24 Campaign Director Required: No Accompanied by: Self / Same As Patient Allergies No Known Allergies Allergy (Verified 04/07/24 10:51) Medication List - Last Reconciled 04/07/24 by Carolyn Melgoza PA-C blood sugar diagnostic As directed 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 meter,continuous (FreeStyle Urszula 3 [place]) Use daily As directed to monitor blood glucose 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 sensor (FreeStyle Urszula 3 Sensor device) Apply every 14 days As directed to monitor blood glucose 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 sensor (FreeStyle Urszula 3 Plus Sensor device) Use daily As directed to monitor glucose empagliflozin (Jardiance) 25 mg PO DAILY gabapentin 900 mg PO BEDTIME insulin degludec (Tresiba FlexTouch U-200 insulin) 10 units (0.05 mL) subcut BEDTIME lisinopril 20 mg PO DAILY metformin 1,000 mg PO BID 1 month metoprolol succinate ER 50 mg PO DAILY pen needle, diabetic (BD Ultra-Fine Suzy Pen Needle) As directed four times a day HPI HPI DM/LVM: Details: Patient is a 33-year-old male with a significant past medical history of morbid obesity, noncompliance, hypertension, hyperlipidemia, type 2 diabetes, fatty liver presenting today for a follow up regarding his diabetes. Endo: Dm-his most recent A1c is 8.5. It was previously 10. He was diagnosed with diabetes around 2017. He states everyone in his family has type 2 diabetes. At our last visit I switched him from Toujeo to Tresiba and added Ozempic to his regimen. He is currently on Tresiba 10 units, Ozempic 0.25 mg weekly, metformin 1000 mg twice a day, Jardiance 25 mg daily. -He states he is tolerating ozempic. He is down 9 lbs. he does report that he sometimes forgets to take doses of his Tresiba. he is working with the nurse navigator to be more compliant with his diabetes and his diet. He has been increasing his exercise as well and walking more frequently and going to the gym to swim. he never picked up the CGM. He was on trulicity 4.5 mg in the past and tolerated this well but felt like it was ineffective. He never noticed any decrease blood sugars. He is on an ANIRUDH inhibitor. Hypoglycemia-states he has not had any episodes in the last few years. Hyperglycemia-does notice increased thirst and urination with this. Scheduled to see Ophthalmology in March next year. He does have chronic peripheral neuropathy due to his diabetes. He is on gabapentin for this. CV: Blood pressure today in the office is 118/76. He is currently on lisinopril 20 mg and metoprolol 50 mg QAM and 100 mg QPM. Cholesterol used to be managed by atorvastatin but he has not been on medications in a couple years. Per pt tolerated well. He will recheck this today. [facility] Medical History GERD (gastroesophageal reflux disease) BMI 50.0-59.9, adult Morbid obesity Neuropathy Vitamin D deficiency Hyperlipidemia Hypertension Type 2 diabetes mellitus with diabetic neuropathy Surgical History Hx of circumcision Family History Father Diabetes Mother Diabetes Social History Household Members: Family Household Members Other:: brothers Housing: Apartment Alcohol intake: never Patient Tobacco Use Status: Never used Tobacco Current occupational status: unemployed and disabled Current occupation: [employer] Physical Exam Vital Signs: Last Vital Signs Pulse 95 04/07/24 10:47 BP 118/76 04/07/24 10:47 BMI result Body Mass Index 52.0 Const Orientation/consciousness: patient oriented x3 Neck Neck: Yes no lymphadenopathy Thyroid: Thyroid normal Carotids: no bruits Resp Auscultation: clear to auscultation bilaterally Cardio Rate: regular rate Rhythm: regular rhythm Heart sounds: S1 normal heart sound present and S2 normal heart sound present Neuro General: patient oriented x3, gait normal and no focal motor deficits Results Reviewed Results Reviewed: Laboratory Tests 11/28/23 03/03/24 04/03/24 12:52 09:03 15:13 Creatinine 0.76 Estimated GFR > 60 Random Glucose 142 H Hgb A1c (Clinic) 10.0 H Hemoglobin A1c % 8.5 H Urine Creatinine 568.86 Urine Microalbumin 194.0 Microalb/Creat Ratio 34.1 H Assessment & Plan Assessment & Plan (1) Hyperlipidemia: Code(s): E78.5 - Hyperlipidemia, unspecified Category: Medical Qualifiers: Hyperlipidemia type: unspecified Qualified Code(s): E78.5 - Hyperlipidemia, unspecified Plan: We will recheck lipids today. If elevated we will start patient on atorvastatin again. (2) Morbid obesity: Code(s): E66.01 - Morbid (severe) obesity due to excess calories Category: Medical Plan: Congratulated him on his weight loss. Encouraged him to continue with his diet and exercise. I have also increased Ozempic. 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 I recent in the sensors for him as we did not have any here in the office to supply him. He will let me know if he has any issues finding this and I have advised him to contact pharmacies to see who may have it in stock. His prior Auth was approved for continuous glucose monitor. (4) Hypercalcemia: Code(s): E83.52 - Hypercalcemia Category: Medical Plan: Last labs reviewed in calcium was slightly elevated. We will recheck ionized calcium today. (5) Non-compliance: Code(s): Z91.199 - Patient's noncompliance with other medical treatment and regimen due to unspecified reason Category: Medical Plan: Spent extensive time discussing the importance of compliance with medication regimen and the complications associated with uncontrolled diabetes, hypertension, hyperlipidemia. We discussed the increased risk of a stroke, heart attack and early . Did discuss that uncontrolled diabetes can lead to blindness, amputations, increased risk of infections etc.. (6) Hypertension: Code(s): I10 - Essential (primary) hypertension Category: Medical Qualifiers: Hypertension type: essential hypertension Qualified Code(s): I10 - Essential (primary) hypertension Plan: WNL. 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 Medications: New semaglutide (Ozempic) 0.5 mg (0.736 mL) subcut QWEEK 3 mL 3RF Refilled 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 sensor (FreeStyle Urszula 3 Sensor device) Apply every 14 days As directed to monitor blood glucose 2 ea 11RF E11.9 - Type 2 diabetes mellitus without complications, 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
[2024-04-07 10:57] LABS: Glucose, Whole Blood 156 mg/dL (60-115)
== END 2024-04-07 11:14 | disposition home or self-care (01) ==
PROVIDERS: PCP Family Medicine; Visit Provider Physician Assistant
DX: E78.5 Hyperlipidemia, unspecified (principal); E66.01 Morbid (severe) obesity due to excess calories; E11.65 Type 2 diabetes mellitus with hyperglycemia; Z79.4 Long term (current) use of insulin; E83.52 Hypercalcemia; Z91.199 Patient's noncompliance with other medical treatment and regimen due to unspecified reason; I10 Essential (primary) hypertension

== ENCOUNTER → 2024-05-27 12:06 | Outpatient (BNVA) | payer OTHER, SELFPAY | PROVIDERS: PCP Family Medicine ==

== ENCOUNTER 2024-07-07 11:00 | Outpatient (AMB) | payer OTHER, SELFPAY ==
[2024-07-07 11:08] VITALS: BP 110/76; PULSE 86; O2SAT 97; BMI 52.5
--- NOTE | 2024-07-07 11:08 | A.OFFVIS_ITS ---
Vital Signs 07/07/24 11:08 Height 5 ft 8 in Weight 345 lb 0.375 oz BMI 52.5 BP 110/76 Blood Pressure Location Lt brachial Position Sitting Pulse 86 Pulse Source Pulse Oximeter Pulse Oximetry (%) 97 Oxygen Delivery Method Room Air Intake Visit Reasons: DM Intake Note: Patient present today for Type 2 Diabetes Mellitus Last Diabetic eye exam: Over two years ago Last Podiatry Visit: Doesn't have one Random Glucose: 127 mg/dl HgA1C: 6.3% Youth Teacher Required: No Accompanied by: Self / Same As Patient Allergies No Known Allergies Allergy (Verified 07/07/24 11:13) Medication List - Last Reconciled 07/07/24 by Carolyn Melgoza PA-C blood sugar diagnostic As directed 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 meter,continuous (FreeStyle Urszula 3 [place]) Use daily As directed to monitor blood glucose 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 sensor (FreeStyle Urszula 3 Plus Sensor device) Use daily As directed to monitor glucose 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 sensor (FreeStyle Urszula 3 Sensor device) Apply every 14 days As directed to monitor blood glucose empagliflozin (Jardiance) 25 mg PO DAILY gabapentin 900 mg PO BEDTIME insulin degludec (Tresiba FlexTouch U-200 insulin) 10 units (0.05 mL) subcut BEDTIME lisinopril 20 mg PO DAILY magnesium oxide 250 mg PO DAILY metformin 1,000 mg PO BID 1 month metoprolol succinate ER 50 mg PO DAILY pen needle, diabetic (BD Ultra-Fine Suzy Pen Needle) As directed four times a day simvastatin 10 mg PO BEDTIME HPI HPI DM: Details: Patient is a 33-year-old male with a significant past medical history of morbid obesity, noncompliance, hypertension, hyperlipidemia, type 2 diabetes, fatty liver presenting today for a follow up regarding his diabetes. Endo: Dm-his last A1c was 8.5. Today it is 6.3. He was diagnosed with diabetes around 2017. He states everyone in his family has type 2 diabetes. He is currently on Tresiba 10 units, Ozempic 0.5 mg weekly, metformin 1000 mg twice a day, Jardiance 25 mg daily. CGM- GMI 6.9%, very high 2%, high 15%, in range 83%,low 0% -He states he is tolerating ozempic. He is down 10 lbs. he does report that he sometimes forgets to take doses of his Tresiba. He was on trulicity 4.5 mg in the past and tolerated this well but felt like it was ineffective. He never noticed any decrease blood sugars. He is on an ANIRUDH inhibitor. Hypoglycemia-states he has not had any episodes in the last few years. Hyperglycemia-does notice increased thirst and urination with this. Scheduled to see Ophthalmology in March next year. He does have chronic peripheral neuropathy due to his diabetes. He is on gabapentin for this. CV: Blood pressure today in the office is 110/76. He is currently on lisinopril 20 mg and metoprolol 50 mg QAM and 100 mg QPM. 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 [employer] Physical Exam Vital Signs: Last Vital Signs Pulse 86 07/07/24 11:08 BP 110/76 07/07/24 11:08 Pulse Ox 97 07/07/24 11:08 Oxygen Delivery Method Room Air 07/07/24 11:08 BMI result Body Mass Index 52.5 Const Orientation/consciousness: patient oriented x3 HEENT Ears: hearing grossly normal bilaterally Neck Thyroid: Thyroid normal Lymphatic: no lymphadenopathy noted Resp Auscultation: clear to auscultation bilaterally Cardio Rate: regular rate Rhythm: regular rhythm Heart sounds: S1 normal heart sound present and S2 normal heart sound present Skin General skin exam: no rashes or lesions noted Neuro General: patient oriented x3, gait normal and no focal motor deficits Results AMB Hemoglobin A1c AMB Hemoglobin A1c 6.3 % Last Edit by STEVAN Akbar on 07/07/24 11:29 Results Reviewed Results Reviewed: Laboratory Last Values Glucose (Clinic) 127 mg/dL (60-115) H 07/07/24 11:15 Hgb A1c (Clinic) 6.3 % (4.0-6.0) H 07/07/24 11:18 Assessment & Plan Assessment & Plan (1) Uncontrolled type 2 diabetes mellitus with hyperglycemia, with long-term current use of insulin: Code(s): E11.65 - Type 2 diabetes mellitus with hyperglycemia; Z79.4 - [facility] (current) use of insulin Category: Medical Plan: increase ozempic to 1 mg weekly continue tresiba 10 units continue metformin and jardiance We did discusss if glucose readings go low, d/c tresiba reviewed rule of 15s continue wearing the sensor. (2) Hypertension: Code(s): I10 - Essential (primary) hypertension Category: Medical Qualifiers: Hypertension type: essential hypertension Qualified Code(s): I10 - Essential (primary) hypertension Plan: wnl continue current treatment plan (3) Hyperlipidemia: Code(s): E78.5 - Hyperlipidemia, unspecified Category: Medical Qualifiers: Hyperlipidemia type: unspecified Qualified Code(s): E78.5 - Hyperlipidemia, unspecified Plan: will monitor Orders: Orders AMB Hemoglobin A1c Today E11.40 - Type 2 diabetes mellitus with diabetic neuropathy, unspecified, Z13.9 - Encounter for screening, unspecified, 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
[2024-07-07 11:20] LABS: Glucose, Whole Blood 127 mg/dL (60-115)
== END 2024-07-07 11:30 | disposition home or self-care (01) ==
PROVIDERS: PCP Family Medicine; Visit Provider Physician Assistant
DX: E11.65 Type 2 diabetes mellitus with hyperglycemia (principal); Z79.4 Long term (current) use of insulin; I10 Essential (primary) hypertension; E78.5 Hyperlipidemia, unspecified; Z13.9 Encounter for screening, unspecified; E11.40 Type 2 diabetes mellitus with diabetic neuropathy, unspecified

== ENCOUNTER → 2024-07-07 11:00 | Outpatient (BNVA) | payer OTHER, SELFPAY | PROVIDERS: PCP Family Medicine; Visit Provider Physician Assistant | DX: E11.65 Type 2 diabetes mellitus with hyperglycemia (principal); E78.5 Hyperlipidemia, unspecified; I10 Essential (primary) hypertension; Z79.4 Long term (current) use of insulin | CPT/HCPCS: 82947; 83036; 99212 ==

== ENCOUNTER 2024-07-07 11:55 | Outpatient (REF) | payer OTHER, SELFPAY ==
[2024-07-07 12:53] LABS: Estimated Average Glucose 140 mg/dL; Hemoglobin A1c % 6.5 % (<6.0)
[2024-07-07 13:28] LABS: Alanine Aminotransferase 18 U/L (0-40); Albumin Level 4.2 g/dL (3.5-5.0); Alkaline Phosphatase 84 U/L (39-117); Anion Gap 12 (12-20); Aspartate Amino Transferase 20 U/L (5-37); Bilirubin Direct 0.2 mg/dL (0.0-0.5); Bilirubin Total 0.6 mg/dL (0.0-1.0); Blood Urea Nitrogen 10 mg/dL (9-16); Carbon Dioxide 24 mmol/L (22-29); Chloride 105 mmol/L (96-108); Estimated Glomerular Filt Rate > 60; Glucose Fasting 122 mg/dL (60-99); Potassium 4.3 mmol/L (3.3-5.1); Sodium 137 mmol/L (135-145); Total Protein 8.3 g/dL (6.5-8.0)
== END 2024-07-07 11:56 | disposition home or self-care (01) ==
LOC: HO.LAB 11:55
PROVIDERS: PCP Family Medicine; Visit Provider Family Medicine
DX: E78.00 Pure hypercholesterolemia, unspecified (principal); Z79.899 Other long term (current) drug therapy; E11.9 Type 2 diabetes mellitus without complications; I10 Essential (primary) hypertension
CPT/HCPCS: 36415; 80051; 80076; 82550; 82565; 82947; 83036; 84520

== ENCOUNTER 2024-09-29 10:55 | Outpatient (AMB) | payer OTHER, SELFPAY ==
[2024-09-29 10:55] VITALS: BP 118/78; PULSE 78; O2SAT 98; BMI 53.3
--- NOTE | 2024-09-29 10:55 | A.OFFVIS_ITS ---
Vital Signs 09/29/24 10:55 Height 5 ft 8 in Weight 350 lb 8.56 oz BMI 53.3 BP 118/78 Blood Pressure Location Rt brachial Position Sitting Pulse 78 Pulse Source Pulse Oximeter Pulse Oximetry (%) 98 Oxygen Delivery Method Room Air Intake Visit Reasons: dm Intake Note: Patient presents today for a follow-up on Type 2 Diabetes Mellitus: Last Diabetic eye exam was on: DUE Last Podiatry exam was on: Patient does not see a Chemist Food Most recent HbA1c: 6.2%, 09/29/2024 Random Glucose- 125 mg/dL, Today Supervisor Finishing Required: No Accompanied by: Self / Same As Patient Allergies No Known Allergies Allergy (Verified 09/29/24 10:56) Medication List - Last Reconciled 09/29/24 by Carolyn Melgoza PA-C blood sugar diagnostic As directed 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 sensor (FreeStyle Urszula 3 Plus Sensor device) Use daily As directed to monitor glucose 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 sensor (FreeStyle Urszula 3 Sensor device) Apply every 14 days As directed to monitor blood glucose 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,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,cont (FreeStyle Urszula 3 [place]) Use daily As directed to monitor blood glucose empagliflozin (Jardiance) 25 mg PO DAILY gabapentin 900 mg PO BEDTIME insulin degludec (Tresiba FlexTouch U-200 insulin) 10 units (0.05 mL) subcut BEDTIME lisinopril 20 mg PO DAILY magnesium oxide 250 mg PO DAILY metformin 1,000 mg PO BID 1 month metoprolol succinate ER 50 mg PO DAILY pen needle, diabetic (BD Ultra-Fine Suzy Pen Needle) As directed four times a day simvastatin 10 mg PO BEDTIME HPI HPI dm: Details: Patient is a 33-year-old male with a significant past medical history of morbid obesity, noncompliance, hypertension, hyperlipidemia, type 2 diabetes, fatty liver presenting today for a follow up regarding his diabetes. Endo: Dm-his last A1c was 6.3. Today it is 6.2. He was diagnosed with diabetes around 2017. He states everyone in his family has type 2 diabetes. He is currently on Ozempic 1 mg weekly, metformin 1000 mg twice a day, Jardiance 25 mg daily. CGM- GMI 6.5%, very high 0%, high 6%, in range 94%,low 0% -He states he is tolerating ozempic. He does report that he stopped his Tresiba for the last few months because blood sugars were normal He was on trulicity 4.5 mg in the past and tolerated this well but felt like it was ineffective. He never noticed any decrease blood sugars. He is on an ANIRUDH inhibitor. Hypoglycemia-states he has not had any episodes in the last few years. Hyperglycemia-does notice increased thirst and urination with this. Scheduled to see Ophthalmology in March next year. He does have chronic peripheral neuropathy due to his diabetes. He is on gabapentin for this. CV: Blood pressure today in the office is 118/78. He is currently on lisinopril 20 mg and metoprolol 50 mg QAM and 100 mg QPM. Cholesterol used to be managed by simvastatin. 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 [employer] Physical Exam Vital Signs: Last Vital Signs Pulse 78 09/29/24 10:55 BP 118/78 09/29/24 10:55 Pulse Ox 98 09/29/24 10:55 Oxygen Delivery Method Room Air 09/29/24 10:55 BMI result Body Mass Index 53.3 Const Orientation/consciousness: patient oriented x3 HEENT Ears: hearing grossly normal bilaterally Neck Neck: Yes no lymphadenopathy Thyroid: Thyroid normal Carotids: no bruits Lymphatic: no lymphadenopathy noted Resp Auscultation: clear to auscultation bilaterally Cardio Rate: regular rate Rhythm: regular rhythm Heart sounds: S1 normal heart sound present and S2 normal heart sound present Peripheral pulses: dorsalis pedis present Skin General skin exam: no rashes or lesions noted Neuro General: patient oriented x3, gait normal and no focal motor deficits Extrem Other: Monofilament absent on the plantar aspect of the feet bilaterally and diminished on the dorsum of the right foot. Monofilament sensation is present on the dorsum of the left foot. Vibratory sensation intact bilaterally. Skin intact. General: Yes normal to inspection Results AMB Hemoglobin A1c AMB Hemoglobin A1c 6.2 % Last Edit by STEVAN Medina on 09/29/24 11:12 Results Reviewed Results Reviewed: Laboratory Last Values Glucose (Clinic) 125 mg/dL (60-115) H 09/29/24 11:03 Hgb A1c (Clinic) 6.2 % (4.0-6.0) H 09/29/24 11:12 Laboratory Tests 07/07/24 07/07/24 11:18 12:17 Sodium 137 Potassium 4.3 Chloride 105 Carbon Dioxide 24 Anion Gap 12 BUN 10 Creatinine 0.72 Estimated GFR > 60 Fasting Glucose 122 H Hgb A1c (Clinic) 6.3 H Hemoglobin A1c % 6.5 H AST 20 ALT 18 Assessment & Plan Assessment & Plan (1) Type 2 diabetes mellitus with diabetic neuropathy: Code(s): E11.40 - Type 2 diabetes mellitus with diabetic neuropathy, unspecified Category: Medical Qualifiers: Diabetes mellitus clinical athletic instructor insulin use: with clinical athletic instructor use Qualified Code(s): E11.40 - Type 2 diabetes mellitus with diabetic neuropathy, unspecified; Z79.4 - social service technician (current) use of insulin Plan: increase ozempic to 2 mg continue jardiance and metformin stop tresiba fully return in 3 months for dm or sooner if needed (2) Hyperlipidemia: Code(s): E78.5 - Hyperlipidemia, unspecified Category: Medical Qualifiers: Hyperlipidemia type: unspecified Qualified Code(s): E78.5 - Hyperlipidemia, unspecified Plan: lipids and lfts ordered again he states he will do this today states he is compliant with the simvastatin (3) Morbid obesity: Code(s): E66.01 - Morbid (severe) obesity due to excess calories Category: Medical Plan: Encouraged him to continue with diet changes to promote weight loss (4) Hypertension: Code(s): I10 - Essential (primary) hypertension Category: Medical Qualifiers: Hypertension type: essential hypertension Qualified Code(s): I10 - Ess ential (primary) hypertension Plan: continue current plan Orders: Orders Lipid Panel Today E11.40 - Type 2 diabetes mellitus with diabetic neuropathy, unspecified, E66.01 - Morbid (severe) obesity due to excess calories, E78.5 - Hyperlipidemia, unspecified, I10 - Essential (primary) hypertension, Z79.4 - social service technician (current) use of insulin AMB Hemoglobin A1c Today E11.65 - Type 2 diabetes mellitus with hyperglycemia, Z79.4 - nursing home (current) use of insulin Comprehensive Met. Panel Today E11.40 - Type 2 diabetes mellitus with diabetic neuropathy, unspecified, E66.01 - Morbid (severe) obesity due to excess calories, E78.5 - Hyperlipidemia, unspecified, I10 - Essential (primary) hypertension, Z79.4 - nursing home (current) use of insulin Microalbumin, Random (w Creat) Today E11.40 - Type 2 diabetes mellitus with diabetic neuropathy, unspecified, E66.01 - Morbid (severe) obesity due to excess calories, E78.5 - Hyperlipidemia, unspecified, I10 - Essential (primary) hypertension, Z79.4 - nursing home (current) use of insulin Medications: New semaglutide (Ozempic) 2 mg (0.75 mL) subcut QWEEK 3 mL 4RF Coding Level of Care Code Est Pt Level 4 (19162) Complex EM visit Add On G2211 Diagnoses Type 2 diabetes mellitus with diabetic neuropathy, with long-term current use of insulin E11.40; Z79.4 Diabetes mellitus clinical athletic instructor insulin use: with clinical athletic instructor use Hyperlipidemia, unspecified hyperlipidemia type E78.5 Hyperlipidemia type: unspecified Morbid obesity E66.01 Essential hypertension I10 Hypertension type: essential hypertension
[2024-09-29 11:08] LABS: Glucose, Whole Blood 125 mg/dL (60-115)
== END 2024-09-29 11:37 | disposition home or self-care (01) ==
PROVIDERS: PCP Family Medicine; Visit Provider Physician Assistant
DX: E11.40 Type 2 diabetes mellitus with diabetic neuropathy, unspecified (principal); Z79.4 Long term (current) use of insulin; E78.5 Hyperlipidemia, unspecified; E66.01 Morbid (severe) obesity due to excess calories; I10 Essential (primary) hypertension; E11.65 Type 2 diabetes mellitus with hyperglycemia

== ENCOUNTER 2024-09-29 10:55 | Outpatient (REF) | payer OTHER, SELFPAY ==
[2024-09-29 13:10] LABS: Alanine Aminotransferase 21 U/L (0-40); Albumin Level 4.2 g/dL (3.5-5.0); Alkaline Phosphatase 80 U/L (39-117); Anion Gap 12 (12-20); Aspartate Amino Transferase 19 U/L (5-37); Bilirubin Total 0.7 mg/dL (0.0-1.0); Blood Urea Nitrogen 11 mg/dL (9-16); Calcium 9.3 mg/dL (8.4-10.2); Carbon Dioxide 25 mmol/L (22-29); Chloride 103 mmol/L (96-108); Cholesterol 182 mg/dL (<200); Estimated Glomerular Filt Rate > 60; Glucose Random 122 mg/dL (60-115); HDL Cholesterol 41 mg/dL (>40); LDL Cholesterol Calculated 115 mg/dL (<100); Potassium 4.1 mmol/L (3.3-5.1); Sodium 136 mmol/L (135-145); Total Protein 7.9 g/dL (6.5-8.0); Triglycerides 130 mg/dL (<150)
[2024-09-29 13:47] LABS: Creatinine Urine 97.42 mg/dL; Microalbum/Creatinine Ratio Ur 9.2 ug/mg cr (<30)
[2024-10-01 13:49] LABS: Calcium, Ionized 5.2 mg/dL (4.7-5.5)
== END 2024-09-29 10:56 | disposition home or self-care (01) ==
LOC: HO.LAB 10:55
PROVIDERS: PCP Family Medicine; Visit Provider Physician Assistant
DX: E11.65 Type 2 diabetes mellitus with hyperglycemia (principal); Z79.4 Long term (current) use of insulin; E78.5 Hyperlipidemia, unspecified; I10 Essential (primary) hypertension; E66.01 Morbid (severe) obesity due to excess calories; E83.52 Hypercalcemia; E11.40 Type 2 diabetes mellitus with diabetic neuropathy, unspecified; Z79.85 Long-term (current) use of injectable non-insulin antidiabetic drugs
CPT/HCPCS: 36415; 80053; 80061; 82043; 82330; 82570; 82947; 83036; 99212

== ENCOUNTER 2024-10-30 10:04 | Outpatient (REF) | payer OTHER, SELFPAY ==
[2024-10-30 10:24] LABS: MANUAL DIFF FLAG NO
[2024-10-30 11:17] LABS: Basophils Absolute Auto 0.1 X10*3/uL (0.0-0.2); Basophils Percent Auto 0.6 % (0-2); Eosinophils Absolute Auto 0.1 X10*3/uL (0.0-0.4); Eosinophils Percent Auto 1.3 % (0-4); Hematocrit 45.5 % (42.0-52.0); Hemoglobin 14.5 g/dl (14.0-18.0); Imm Gran Abs Auto 0.06 X10*3/uL (0.00-0.03); Imm Gran Pct Auto 0.7 % (0.0-0.4); Lymphocytes Absolute Auto 2.4 X10*3/uL (1.2-4.9); Mean Corpuscular HGB Conc 31.9 g/dl (31.0-36.0); Mean Corpuscular Volume 81.5 fL (80.0-98.0); Mean Platelet Volume 9.8 fL (9.4-12.4); Monocytes Absolute Auto 0.4 X10*3/uL (0.1-1.2); Monocytes Percent Auto 4.8 % (2-11); Neutrophils Absolute Auto 5.3 x10*3/uL (2.0-8.3); Neutrophils Percent Auto 63.6 % (45-73); Platelet Count 353 X10*3/uL (160-400); Red Blood Count 5.58 X10*6/uL (4.60-5.80); White Blood Count 8.3 X10*3/uL (4.8-10.8)
[2024-10-30 12:15] LABS: Alanine Aminotransferase 17 U/L (0-40); Albumin Level 4.3 g/dL (3.5-5.0); Alkaline Phosphatase 71 U/L (39-117); Anion Gap 13 (12-20); Aspartate Amino Transferase 18 U/L (5-37); Bilirubin Direct 0.2 mg/dL (0.0-0.5); Bilirubin Total 0.5 mg/dL (0.0-1.0); Carbon Dioxide 24 mmol/L (22-29); Chloride 105 mmol/L (96-108); Estimated Glomerular Filt Rate > 60; Potassium 4.2 mmol/L (3.3-5.1); Sodium 138 mmol/L (135-145); Total Protein 7.6 g/dL (6.5-8.0)
[2024-10-30 12:32] LABS: Free T4 (Free Thyroxine) 0.98 ng/dL (0.71-1.85); Thyroid Stimulating Hormone 1.49 uIU/mL (0.32-4.0)
== END 2024-10-30 10:05 | disposition home or self-care (01) ==
LOC: HO.LAB 10:04
PROVIDERS: PCP Family Medicine; Visit Provider Family Medicine
DX: K75.81 Nonalcoholic steatohepatitis (NASH) (principal); I10 Essential (primary) hypertension; R00.0 Tachycardia, unspecified
CPT/HCPCS: 36415; 80051; 80076; 82565; 84439; 84443; 85025

== ENCOUNTER 2024-11-03 14:09 | Outpatient (REF) | payer OTHER, SELFPAY ==
--- NOTE | ~2024-11-03 | XR_ITS ---
EXAMINATION: XR CERVICAL SPINE CLINICAL INFORMATION: NECK PAIN COMPARISON: None available. TECHNIQUE: AP, lateral, swimmer's projection and atlantoodontoid views. FINDINGS: Craniocervical junction is intact. Marginal osteophyte formation at C4-5. No acute cortical disruption or malalignment. No lytic or blastic lesions. XR/XR cervical spine 3V IMPRESSION: Spondylosis, C4-5. Electronically signed by: Lorenzo Xiao MD 11/03/2024 02:43 PM EDT
== END 2024-11-03 14:10 | disposition home or self-care (01) ==
LOC: HO.XRAY 14:09
PROVIDERS: PCP Family Medicine; Visit Provider Family Medicine
DX: M54.2 Cervicalgia (principal)
CPT/HCPCS: 72040

== ENCOUNTER → 2024-11-03 14:20 | Outpatient (BNV) | payer OTHER, SELFPAY | PROVIDERS: PCP Family Medicine; Visit Provider Radiology Diagnostic Radiology | DX: M47.812 Spondylosis without myelopathy or radiculopathy, cervical region (principal) | CPT/HCPCS: 72040 ==

== ENCOUNTER 2024-12-02 11:55 | Emergency (ER) | payer OTHER, SELFPAY ==
--- NOTE | ~2024-12-02 | XR_ITS ---
EXAMINATION: XR THORACIC SPINE CLINICAL INFORMATION: fall COMPARISON: None available. TECHNIQUE: 3 views of the thoracic spine were obtained. FINDINGS: Cervical thoracic junction is obscured by overlapping bony and soft tissues. Otherwise, vertebral body height and alignment is preserved. There is disc space narrowing in the mid to upper thoracic spine. XR/XR thoracic spine 3V IMPRESSION: No acute abnormality. Electronically signed by: Dangelo Uribe MD 12/02/2024 12:37 PM EDT
--- NOTE | ~2024-12-02 | CT_ITS ---
EXAMINATION: CT CERVICAL SPINE WITHOUT CONTRAST CLINICAL INFORMATION: Trauma, fall COMPARISON: X-ray from November 03, 2024 TECHNIQUE: Axial imaging was performed from the base of the skull through T2 without IV contrast. Coronal and sagittal reformatted images were generated from the original axial data set. ALARA: The examination used one or more of the following radiation dose reduction techniques: Automated exposure control, iterative reconstruction, and/or adjustment of mA and/or KV. DLP: 1757 mGY*cm FINDINGS: Motion mildly degrades image quality. There is mild reversal of the normal cervical lordosis. No fractures are identified. There is no prevertebral soft tissue swelling. There is ossification of the anterior disc annulus at C4-5 and anterior osteophytes. No acute fracture line is identified. CT/CT cervical spine wo IV con IMPRESSION: There is mild reversal of cervical lordosis. This can be related to degenerative changes, positioning, muscle spasm, or posterior soft tissue injury. No acute abnormality. Electronically signed by: Dangelo Uribe MD 12/02/2024 12:55 PM EDT
--- NOTE | ~2024-12-02 | CT_ITS ---
EXAMINATION: CT HEAD WITHOUT CONTRAST CLINICAL INFORMATION: fall COMPARISON: March 23, 2014. TECHNIQUE: Contiguous axial imaging was performed from the skull base to vertex without intravenous administration of contrast. This CT examination was performed using dose optimization techniques as appropriate, variously including the following: *Automated exposure control *Adjustment of mA and/or kV according to patient size (this includes techniques or standardized protocols for targeted exams where dose is matched to indication/reason for exam; i.e. extremities or head) *Use of iterative reconstruction technique DLP: 854.08 mGy-cm FINDINGS: No acute cortical disruption in the bony calvarium or the skull base. No acute intracranial hemorrhage, mass effect, midline shift, hydrocephalus or herniation. Peng-white matter differentiation is normal. 1 cm extra-axial CSF level and structure in the left midline superior frontal convexity. Posterior cranial fossa contents demonstrated no acute hemorrhage or mass effect. Craniocervical junction demonstrates normal position of the cerebellar tonsils. Sellar/suprasellar region demonstrated no gross masses. No air-fluid levels in the paranasal sinuses. Tympanic cavities and mastoid cells are aerated. CT/CT head/brain wo IV con IMPRESSION: No acute fracture, bony calvarium. No acute intracranial hemorrhage. Electronically signed by: Lorenzo Xiao MD 12/02/2024 12:57 PM EDT
[2024-12-02 12:14] VITALS: BP 157/99; PULSE 103; RESP 16; TEMP 36.2; O2SAT 97; BMI 53.1
--- NOTE | 2024-12-02 12:25 | ED_ITS ---
HPI - General Adult General Chief complaint: Fall Stated complaint: fell back and shoulder pain Time Seen by Provider: 12/02/24 12:18 Source: patient Mode of arrival: ambulatory Limitations: no limitations History of Present Illness ED Provider: Los Mccauley HPI narrative: 33 yold male presents to the ED neck pain radiating down both shoulder and upper back after falling down the stairs at his home. Patient denies any loss of consciousness. Patient denies any chest pain, shortness of breath, or abdominal pain Related Data Home Medications ?Medication ?Instructions ?Recorded ?Confirmed lisinopril 20 mg tablet 20 mg PO DAILY 02/13/2009/11 blood sugar diagnostic #10 ea 05/21/20 09/29/24 metoprolol succinate 50 mg 50 mg PO DAILY 02/12/24 tablet,extended release 24 hr gabapentin 300 mg capsule 900 mg PO BEDTIME 03/04/24 0 09/29/24 magnesium oxide 250 mg PO DAILY 05/27/24 simvastatin 10 mg tablet 10 mg PO BEDTIME 05/27/24 Previous Rx's ?Medication ?Instructions ?Recorded 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,mail processing associate,cont #1 ea 02/18/24 (FreeStyle Urszula 3 [place]) insulin degludec 200 unit/mL (3 10 unit (0.05 mL) subc ut BEDTIME 02/18/24 mL) subcutaneous pen (Tresiba #9 mL FlexTouch U-200 insulin) pen needle, diabetic 32 gauge x #125 ea 02/27/24 (BD Ultra-Fine Suzy Pen Needle) metformin 1,000 mg tablet 1,000 mg PO BID 1 month #180 tabs 03/03/24 empagliflozin 25 mg tablet 25 mg PO DAILY #90 tabs 09/04 (Jardiance) 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 sensor (FreeStyle #2 ea 04/03/24 Urszula 3 Plus Sensor device) 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 sensor (FreeStyle #2 ea 04/07/24 Urszula 3 Sensor device) semaglutide 2 mg/dose (8 mg/3 mL) 2 mg (0.75 mL) subcu t QWEEK #3 mL 09/29/24 subcutaneous pen injector (Ozempic) cyclobenzaprine 10 mg tablet 10 mg PO TID PRN muscle s pasm #15 12/02/24 tabs naproxen 500 mg tablet 500 mg PO BID PRN pain #14 t abs 12/02/24 Allergies Allergy/AdvReac Type Severity Reaction Status Date / Time No Known Allergies Allergy Verified 12/02/24 12:16 Review of Systems Review of Systems: Upper neck/back pain fall Yes all other systems are reviewed and are negative [facility] Past Medical History Medical History GERD (gastroesophageal reflux disease) BMI 50.0-59.9, adult Morbid obesity Neuropathy Vitamin D deficiency Hyperlipidemia Hypertension Type 2 diabetes mellitus with diabetic neuropathy Surgical History Hx of circumcision Family History Family History Father Diabetes Mother Diabetes Social History Social History Household Members: Family Household Members Other:: brothers Housing: Apartment Alcohol intake: never Patient Tobacco Use Status: Never used Tobacco Advance Directives: No Advance Directives Information Provided: Yes Current occupational status: unemployed and disabled 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 [employer] Medical Physical Exam ED Vital Signs: Vital Signs - 24 hr 12/02/24 12:14 12/02/24 14:23 Temperature 97.1 F 97.1 F Pulse Rate 103 H 103 H Respiratory Rate 16 16 Blood Pressure 157/99 H 157/99 H Pulse Oximetry 97 97 Oxygen Delivery Method Room Air Room Air BMI result Body Mass Index 53.1 Const General: cooperative, healthy appearing, comfortable, no acute distress, well developed, alert, awake and Physically active Orientation/consciousness: patient oriented x3 HENMT Head: Yes normal to inspection, Yes No palpable skull fracture present, Yes normocephalic and Yes atraumatic Eyes General: appearance normal, both eyes and all related structures Neck Neck: Yes normal visual inspection, Yes full ROM, Yes no lymphadenopathy, Yes no meningeal signs, Yes trachea midline, Yes supple, No anterior neck swelling and Yes tender (posterior cervical) Chest Chest palpation & inspection: normal inspection of the chest and normal palpation of entire chest wall Resp Effort & Inspection: normal respiratory effort and able to speak in complete sentences Cardio Jugular venous distension: no JVD Heart sounds: S1 normal heart sound present and S2 normal heart sound present GI Inspection: Yes normal to inspection Palpation (GI): Soft to palpation, not firm, nontender, no guarding and not rigid General: Yes no CVA tenderness Back/Spine/Pelvis Back: no CVA tenderness and back tenderness (thoracici) Skin General skin exam: no rashes or lesions noted, elasticity normal and turgor normal Neuro General: patient oriented x3, gait normal, tone normal, moves all extremities, Normal light touch and pain sensation, no meningeal signs, no focal motor deficits, CN's II-XI intact bilaterally and normal sensation to monofilament Extrem General: Yes normal to inspection, Yes full ROM and Yes capillary refill normal Psych Appearance: grossly normal, well kempt and not disheveled Medical Decision Making Medical Decision Making MDM Narrative: 33 yold male presents to the ED for posterior neck pain, and uppper back pain after falling down stairs. Patient states he slipped. patinet denies any loss of conscsiosuness. positive for posterior cervical spine tenderness on palpation and throacic spine. Patient is sent for imaging 1:52pm: Patient images came back normal. Patient explained worrisome signs and informed to return to the ED immediately. Whole-body evaluated and negative for any life-threatening etiology. Not suspecting any AL, PE, intra-abdominal life- threatening etiology, stroke, pneumothorax, hemothorax, or any other life- threatening etiology Differential Diagnosis Differential Diagnoses: The differential diagnosis associated with the presentation includes (Brain bleed, neck fracture) Admission/Observation Consideration of admission/observation: Escalation of care including admission/observation considered Independent Interpretation I performed an independent interpretation of an: Plain X-Ray and CT Scan Radiology Impression Discussion of test interpretation with radiology: I have reviewed the radiologist's reading. Independent Historian Clinical information obtained from an independent historian. History obtained from or confirmed by: Other (Patient) Prescription Management I considered prescription management with: Pain Medication Discharge Plan Discharge Clinical Impression: Neck pain, Back pain, Fall Patient Disposition: Home, Self-Care Instructions: Back Pain (ED), Neck Pain (ED), Warm Compress or Soak (ED) Additional Instructions: You images came back reassuring. Recommend follow-up with primary care provider. Return to the ED immediately for any chest pain, abdominal pain, coughing up blood, bruising, blood in stool, bloody urine, severe headache, dizziness, shortness of breath, or any other concerning symptoms. Ordering Physician: Los Mccauley Date of Service: 12/02/24 Procedure(s): CT head/brain wo IV con Accession Number(s): [id number] cc: Los Mccauley; Physician,Unknown ~ Report Number: [id number]: Total DLP = 1757.00 mGy-cm EXAMINATION: CT HEAD WITHOUT CONTRAST CLINICAL INFORMATION: fall COMPARISON: March 23, 2014. TECHNIQUE: Contiguous axial imaging was performed from the skull base to vertex without intravenous administration of contrast. This CT examination was performed using dose optimization techniques as appropriate, variously including the following: *Automated exposure control *Adjustment of mA and/or kV according to patient size (this includes techniques or standardized protocols for targeted exams where dose is matched to indication/reason for exam; i.e. extremities or head) *Use of iterative reconstruction technique DLP: 854.08 mGy-cm FINDINGS: No acute cortical disruption in the bony calvarium or the skull base. No acute intracranial hemorrhage, mass effect, midline shift, hydrocephalus or herniation. Peng-white matter differentiation is normal. 1 cm extra-axial CSF level and structure in the left midline superior frontal convexity. Posterior cranial fossa contents demonstrated no acute hemorrhage or mass effect. Craniocervical junction demonstrates normal position of the cerebellar tonsils. Sellar/suprasellar region demonstrated no gross masses. No air-fluid levels in the paranasal sinuses. Tympanic cavities and mastoid cells are aerated. CT/CT head/brain wo IV con IMPRESSION: No acute fracture, bony calvarium. No acute intracranial hemorrhage. Electronically signed by: Lorenzo Xiao MD 12/02/2024 12:57 PM EDT [place] [id number] CT Scan Report Signed Patient: Bishop Nevarez MR#: [id number] : 1990 Acct:[id number] Age/Sex: 33 / M ADM Date: 12/02/24 Loc: HO.ED Attending Dr: Ordering Physician: Los Mccauley Date of Service: 12/02/24 Procedure(s): CT cervical spine wo IV con Accession Number(s): [id number] cc: Los Mccauley; Physician,Unknown ~ Report Number: [id number]: Total DLP = 1757.00 mGy-cm EXAMINATION: CT CERVICAL SPINE WITHOUT CONTRAST CLINICAL INFORMATION: Trauma, fall COMPARISON: X-ray from November 03, 2024 TECHNIQUE: Axial imaging was performed from the base of the skull through T2 without IV contrast. Coronal and sagittal reformatted images were generated from the original axial data set. ALARA: The examination used one or more of the following radiation dose reduction techniques: Automated exposure control, iterative reconstruction, and/or adjustment of mA and/or KV. DLP: 1757 mGY*cm FINDINGS: Motion mildly degrades image quality. There is mild reversal of the normal cervical lordosis. No fractures are identified. There is no prevertebral soft tissue swelling. There is ossification of the anterior disc annulus at C4-5 and anterior osteophytes. No acute fracture line is identified. CT/CT cervical spine wo IV con IMPRESSION: There is mild reversal of cervical lordosis. This can be related to degenerative changes, positioning, muscle spasm, or posterior soft tissue injury. No acute abnormality. Electronically signed by: Dangelo Uribe MD 12/02/2024 12:55 PM EDT RP Ordering Physician: Los Mccauley Date of Service: 12/02/24 Procedure(s): XR thoracic spine 3V Accession Number(s): [id number] cc: Los Mccauley; Physician,Unknown ~ EXAMINATION: XR THORACIC SPINE CLINICAL INFORMATION: fall COMPARISON: None available. TECHNIQUE: 3 views of the thoracic spine were obtained. FINDINGS: Cervical thoracic junction is obscured by overlapping bony and soft tissues. Otherwise, vertebral body height and alignment is preserved. There is disc space narrowing in the mid to upper thoracic spine. XR/XR thoracic spine 3V IMPRESSION: No acute abnormality. Electronically signed by: Dangelo Uribe MD 12/02/2024 12:37 PM EDT RP Prescriptions: New naproxen 500 mg tablet 500 mg PO BID PRN (Reason: pain) Qty: 14 0RF cyclobenzaprine 10 mg tablet 10 mg PO TID PRN (Reason: muscle spasm) Qty: 15 0RF Rx Instructions: Side effects drowsiness. Do not take at work or while driving No Action (DME) pen needle, diabetic [BD Ultra-Fine Suzy Pen Needle] 32 gauge x 5/32 needle See Rx Instructions .ROUTE .MEDSUPPLY Qty: 125 11RF Rx Instructions: As directed four times a day Jardiance 25 mg tablet 25 mg PO DAILY Qty: 90 2RF (DME) FreeStyle Urszula 3 Plus Sensor Device See Rx Instructions .ROUTE .MEDSUPPLY Qty: 2 5RF Rx Instructions: Use daily As directed to monitor glucose lisinopril 20 mg tablet 20 mg PO DAILY (DME) FreeStyle Precision Denis Strips Strip See Rx Instructions .ROUTE .MEDSUPPLY Qty: 10 Rx Instructions: As directed metoprolol succinate 50 mg tablet extended release 24 hr 50 mg PO DAILY Rx Instructions: Take 50mg by mouth in AM, take 100mg by mouth in PM. metformin 1,000 mg tablet 1,000 mg PO BID 30 Days Qty: 180 2RF gabapentin 300 mg capsule 900 mg PO BEDTIME Rx Instructions: Dose inc by Dr. Cooley 03/04/24. Ozempic 2 mg/dose (8 mg/3 mL) pen injector 2 mg subcut QWEEK Qty: 3 4RF (DME) FreeStyle Urszula 3 [place] Misc See Rx Instructions .ROUTE .MEDSUPPLY Qty: 1 0RF Rx Instructions: Use daily As directed to monitor blood glucose insulin degludec [Tresiba FlexTouch U-200] 200 unit/mL (3 mL) insulin pen 10 unit subcut BEDTIME Qty: 9 2RF (DME) FreeStyle Urszula 3 Sensor Device See Rx Instructions .ROUTE .MEDSUPPLY Qty: 2 11RF Rx Instructions: Apply every 14 days As directed to monitor blood glucose magnesium oxide 250 mg magnesium tablet 250 mg PO DAILY simvastatin 10 mg tablet 10 mg PO BEDTIME Stand Alone Forms: Work/School Release Interventions: ED Discharge Assessment Last Done: 12/02/24 14:23 Discharge Date/Time: 12/02/24 14:15 Print Language: [place]
[2024-12-02 14:23] VITALS: BP 157/99; PULSE 103; RESP 16; TEMP 36.2; O2SAT 97
== END 2024-12-02 14:15 | disposition home or self-care (01) ==
PROVIDERS: Emergency Provider Emergency Medicine Emergency Medical Services
DX: Z04.3 Encounter for examination and observation following other accident (principal); M54.2 Cervicalgia; M54.6 Pain in thoracic spine; Z91.81 History of falling; E11.9 Type 2 diabetes mellitus without complications; I10 Essential (primary) hypertension; E78.5 Hyperlipidemia, unspecified; E55.9 Vitamin D deficiency, unspecified; E66.9 Obesity, unspecified; Z68.43 Body mass index [BMI] 50.0-59.9, adult
CPT/HCPCS: 70450; 72072; 72125; 99282; 99284

== ENCOUNTER → 2024-12-02 12:18 | Outpatient (BNV) | payer OTHER, SELFPAY | PROVIDERS: Emergency Provider Emergency Medicine Emergency Medical Services; Visit Provider Radiology Diagnostic Radiology | DX: M54.2 Cervicalgia (principal); R51.9 Headache, unspecified; M54.6 Pain in thoracic spine; W10.8XXA Fall (on) (from) other stairs and steps, initial encounter | CPT/HCPCS: 70450 ==

== ENCOUNTER 2024-12-16 12:53 | Emergency (ER) | payer OTHER, SELFPAY ==
[2024-12-16 12:58] VITALS: BP 140/93; PULSE 101; RESP 16; TEMP 36.6; O2SAT 96; BMI 53.0
--- NOTE | 2024-12-16 12:59 | ED.URI ---
HPI - URI/Sore Throat General Chief Complaint: Upper Respiratory Symptoms Stated Complaint: sore throat Time Seen by Provider: 12/16/24 13:02 Source: patient Mode of arrival: ambulatory Limitations: no limitations History of Present Illness ED Provider: Alok Valenzuela PA-C HPI Narrative: 33 yo male with history of DM2, HTN, HLD, morbid obesity, MIRANDA who presents to the ER for evaluation of sore throat and cough for the last 4 days. Known exposure to strep throat last week at work. 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 eating and drinking normally, reports pain w/ swallowing. no fevers. mild headache and body aches. no chest pain, SOB, abdominal pain, N/V/D. compliant with all of his meds including insulin Plan: strep swab MD elicited complaint: sore throat Onset (ago): day(s) (4) Consistency: progressively worsening Severity: moderate Able to tolerate fluids by mouth: Yes Exacerbating factors: swallowing Context: sick contacts Associated symptoms: voice changes, headache, sore throat and cough Treatments prior to arrival: none Related Data Home Medications ?Medication ?Instructions ?Recorded ?Confirmed lisinopril 20 mg tablet 20 mg PO DAILY 02/13/20 09/29/24 blood sugar diagnostic #10 ea 05/21/20 09/29/24 metoprolol succinate 50 mg 50 mg PO DAILY 02/12/24 09/29/24 tablet,extended release 24 hr gabapentin 300 mg capsule 900 mg PO BEDTIME 03/04/24 09/29/24 magnesium oxide 250 mg PO DAILY 05/27/24 09/29/24 simvastatin 10 mg tablet 10 mg PO BEDTIME 05/27/24 09/29/24 Previous Rx's ?Medication ?Instructions ?Recorded 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,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,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 #1 ea 02/18/24 (FreeStyle Urszula 3 [place]) insulin degludec 200 unit/mL (3 10 unit (0.05 mL) subcut BEDTIME 02/18/24 mL) subcutaneous pen (Tresiba #9 mL FlexTouch U-200 insulin) pen needle, diabetic 32 gauge x #125 ea 02/27/24 (BD Ultra-Fine Suzy Pen Needle) metformin 1,000 mg tablet 1,000 mg PO BID 1 month #180 tabs 03/03/24 empagliflozin 25 mg tablet 25 mg PO DAILY #90 tabs 03/17/24 (Jardiance) 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 sensor (FreeStyle #2 ea 04/03/24 Urszula 3 Plus Sensor device) 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 sensor (FreeStyle #2 ea 04/07/24 Urszula 3 Sensor device) semaglutide 2 mg/dose (8 mg/3 mL) 2 mg (0.75 mL) subcut QWEEK #3 mL 09/29/24 subcutaneous pen injector (Ozempic) cyclobenzaprine 10 mg tablet 10 mg PO TID PRN muscle spasm #15 12/02/24 tabs naproxen 500 mg tablet 500 mg PO BID PRN pain #14 tabs 12/02/24 Allergies Allergy/AdvReac Type Severity Reaction Status Date / Time No Known Allergies Allergy Verified 12/16/24 13:00 Review of Systems Review of Systems: Yes all other systems are reviewed and are negative [facility] Past Medical History Medical History GERD (gastroesophageal reflux disease) BMI 50.0-59.9, adult Morbid obesity Neuropathy Vitamin D deficiency Hyperlipidemia Hypertension Type 2 diabetes mellitus with diabetic neuropathy Surgical History Hx of circumcision Family History Family History Father Diabetes Mother Diabetes Social History Social History Household Members: Family Household Members Other:: brothers Housing: Apartment Alcohol intake: never Patient Tobacco Use Status: Never used Tobacco Do you have a plan to hurt others: No Plan Current occupational status: unemployed and disabled 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 Oriented X3. No acute distress. Head: normocephalic, atraumatic. Eyes: Pupils equal, round and reactive to light. ENT: Pharynx with moderate posterior pharyngeal erythema w/ tonsillar swelling and erythema, no exudate. uvula midline. hoarse voice. Neck: Normal inspection. Neck supple. CVS: Normal heart rate and rhythm. Pulses normal. Respiratory: No respiratory distress. Breath sounds normal. Skin: Skin warm and dry. Normal skin color. Normal skin turgor. No rashes. Extremities: No lower extremity edema. No joint swelling. Neuro/psych: Oriented X 3. grossly normal, steady gait. Normal speech and cognition. Vital Signs: Vital Signs: Last Vital Signs Temp 97.9 F 12/16/24 12:58 Pulse 101 H 12/16/24 12:58 Resp 16 12/16/24 12:58 BP 140/93 H 12/16/24 12:58 Pulse Ox 96 12/16/24 12:58 O2 Del Method Room Air 12/16/24 12:58 BMI result Body Mass Index 53.0 Course Course Course Narrative: \ Medical Decision Making Medical Decision Making [facility] Narrative: 28 yo diabetic male, hx HTN, HLD, MIRANDA, presenting with sore throat and mild cough for the lasts few days. known exposure to strep last week. strep test here is negative. 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 stable for d/c home Differential Diagnosis Differential Diagnoses: The differential diagnosis associated with the presentation includes strep, covid, flu, rsv, other viral syndrome, bronchitis, pneumonia, no evidence of peritonsillar abcsess or retropharyngeal abscess Lab Data [facility] Lab Attestation statement: I reviewed the patient's lab results. strep negative Labs: Lab Results 12/16/24 Range/Units 13:06 S. pyogenes GrpA DEWEY Negative (Negative) External Record Review External record reviewed: Prior outpatient labs Tests considered The following testing was considered but not selected: considered cxr but lungs are clear, minimal cough, doubt pna Prescription Management I considered prescription management with: Pain Medication and Antibiotic Chronic Conditions Patient?s care impacted by: Diabetes and Hypertension Critical Care Time Critical Care Time Critical Care Time: No Discharge Plan Discharge Clinical Impression: Upper respiratory infection, Pharyngitis Patient Disposition: Home, Self-Care Instructions: Pharyngitis (ED), Viral Syndrome (ED) Additional Instructions: You tested negative for strep throat. You do not need antibiotics. Recommend warm salt water gargles 3-4 times per day. Take Motrin and Tylenol as needed for pain and fevers. Rest and drink plenty of fluids. Follow-up with your primary care doctor as needed. If you develop new or worsening symptoms call 911 or come back to the ER for further evaluation. Prescriptions: No Action (DME) pen needle, diabetic [BD Ultra-Fine Suzy Pen Needle] 32 gauge x 5/32 needle See Rx Instructions .ROUTE .MEDSUPPLY Qty: 125 11RF Rx Instructions: As directed four times a day Jardiance 25 mg tablet 25 mg PO DAILY Qty: 90 2RF (DME) FreeStyle Urszula 3 Plus Sensor Device See Rx Instructions .ROUTE .MEDSUPPLY Qty: 2 5RF Rx Instructions: Use daily As directed to monitor glucose naproxen 500 mg tablet 500 mg PO BID PRN (Reason: pain) Qty: 14 0RF cyclobenzaprine 10 mg tablet 10 mg PO TID PRN (Reason: muscle spasm) Qty: 15 0RF Rx Instructions: Side effects drowsiness. Do not take at work or while driving lisinopril 20 mg tablet 20 mg PO DAILY (DME) FreeStyle Precision Denis Strips Strip See Rx Instructions .ROUTE .MEDSUPPLY Qty: 10 Rx Instructions: As directed metoprolol succinate 50 mg tablet extended release 24 hr 50 mg PO DAILY Rx Instructions: Take 50mg by mouth in AM, take 100mg by mouth in PM. metformin 1,000 mg tablet 1,000 mg PO BID 30 Days Qty: 180 2RF gabapentin 300 mg capsule 900 mg PO BEDTIME Rx Instructions: Dose inc by Dr. Cooley 03/04/24. Ozempic 2 mg/dose (8 mg/3 mL) pen injector 2 mg subcut QWEEK Qty: 3 4RF (DME) FreeStyle Urszula 3 [place] Misc See Rx Instructions .ROUTE .MEDSUPPLY Qty: 1 0RF Rx Instructions: Use daily As directed to monitor blood glucose insulin degludec [Tresiba FlexTouch U-200] 200 unit/mL (3 mL) insulin pen 10 unit subcut BEDTIME Qty: 9 2RF (DME) FreeStyle Urszula 3 Sensor Device See Rx Instructions .ROUTE .MEDSUPPLY Qty: 2 11RF Rx Instructions: Apply every 14 days As directed to monitor blood glucose magnesium oxide 250 mg magnesium tablet 250 mg PO DAILY simvastatin 10 mg tablet 10 mg PO BEDTIME Stand Alone Forms: Work/School Release Print Language: Macanese
[2024-12-16 13:18] LABS: IDNOW Serial# 58CA691E; Strep A Nucleic Acid Negative (Negative)
[2024-12-16 14:04] VITALS: BP 140/93; PULSE 101; RESP 16; TEMP 36.6; O2SAT 96
== END 2024-12-16 14:04 | disposition home or self-care (01) ==
LOC: HO.ED 13:59
PROVIDERS: Physician Assistant; Emergency Provider Emergency Medicine
DX: B34.9 Viral infection, unspecified (principal)
CPT/HCPCS: 87651; 99282; 99283

== ENCOUNTER 2024-12-29 10:58 | Outpatient (AMB) | payer OTHER, SELFPAY ==
[2024-12-29 11:00] VITALS: BP 142/90; PULSE 106; O2SAT 98; BMI 52.1
--- NOTE | 2024-12-29 11:00 | A.OFFVIS_ITS ---
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: No Accompanied by: Self / Same As Patient Allergies No Known Allergies Allergy (Verified 12/29/24 11:01) Medication List - Last Reconciled 12/29/24 by Carolyn Melgoza PA-C blood sugar diagnostic As directed 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 sensor (FreeStyle Urszula 3 Plus Sensor device) Use daily As directed to monitor glucose 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 sensor (FreeStyle Urszula 3 Sensor device) Apply every 14 days As d irected to monitor blood glucose 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,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,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 (FreeStyle Urszula 3 [place]) Use daily As directed to monitor blood glucose cyclobenzaprine 10 mg PO TID PRN empagliflozin (Jardiance) 25 mg PO DAILY gabapentin 900 mg PO BEDTIME lisinopril 20 mg PO DAILY magnesium oxide 250 mg PO DAILY metformin 1,000 mg PO BID 1 month metoprolol succinate ER 50 mg PO DAILY naproxen 500 mg PO BID PRN pen needle, diabetic (BD Ultra-Fine Suzy Pen Needle) As directed four times a day semaglutide (Ozempic) 2 mg (0.75 mL) subcut QWEEK simvastatin 10 mg PO BEDTIME HPI HPI DM: Details: Patient is a 34-year-old male with a significant past medical history of morbid obesity, noncompliance, hypertension, hyperlipidemia, type 2 diabetes, fatty liver presenting today for a follow up regarding his diabetes. Endo: Dm-his last A1c was 6.3. Today it is 6.7. He was diagnosed with diabetes around 2017. He states everyone in his family has type 2 diabetes. He states his diabetes is a little worse because he has been working 2 jobs and has had more access to money which means more access to fast food. He states that he has been eating very poorly and plans to fix this. He is currently on Ozempic 2 mg weekly, metformin 1000 mg twice a day, Jardiance 25 mg daily. CGM-has not been wearing his sensor for the last 2 months because he has not picked it up from the pharmacy. -He states he is tolerating ozempic. He does report that he stopped his Tresiba for the last few months because blood sugars were normal He was on trulicity 4.5 mg in the past and tolerated this well but felt like it was ineffective. He never noticed any decrease blood sugars. He is on an ANIRUDH inhibitor. Hypoglycemia-states he has not had any episodes in the last few years. Hyperglycemia-does notice increased thirst and urination with this. He does have chronic peripheral neuropathy due to his diabetes. He is on gabapentin for this. CV: Blood pressure today in the office is 142/90. He is currently on lisinopril 20 mg and metoprolol 50 mg QAM and 100 mg QPM. He has not seen a new PCP since his previous 1 retired and states that he is going to go today to schedule an appointment. Cholesterol used to be managed by simvastatin. 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 [employer] Physical Exam Vital Signs: Last Vital Signs Pulse 106 H 12/29/24 11:00 BP 142/90 H 12/29/24 11:00 Pulse Ox 98 12/29/24 11:00 Oxygen Delivery Method Room Air 12/29/24 11:00 BMI result Body Mass Index 52.1 Const Orientation/consciousness: patient oriented x3 HEENT Ears: hearing grossly normal bilaterally Neck Thyroid: Thyroid normal Lymphatic: no lymphadenopathy noted Resp Auscultation: clear to auscultation bilaterally Cardio Rate: regular rate Rhythm: regular rhythm Heart sounds: S1 normal heart sound present and S2 normal heart sound present Skin General skin exam: no rashes or lesions noted Neuro General: patient oriented x3, gait normal and no focal motor deficits Results AMB Hemoglobin A1c AMB Hemoglobin A1c 6.7 % Last Edit by STEVAN Medina on 12/29/24 11:25 Results Reviewed Results Reviewed: Laboratory Last Values Glucose (Clinic) 199 mg/dL (60-115) H 12/29/24 11:17 Hgb A1c (Clinic) 6.7 % (4.0-6.0) H 12/29/24 11:20 Laboratory Tests 09/29/24 10/30/24 12/29/24 11:54 10:23 11:20 Creatinine 0.98 Estimated GFR > 60 Hgb A1c (Clinic) 6.7 H AST 18 ALT 17 Triglycerides 130 Cholesterol 182 LDL Cholesterol, Calc 115 H HDL Cholesterol 41 Assessment & Plan Assessment & Plan (1) Uncontrolled type 2 diabetes mellitus with hyperglycemia, with long-term current use of insulin: Code(s): E11.65 - Type 2 diabetes mellitus with hyperglycemia; Z79.4 - 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 Discussed the importance of modifying diet. We did discuss possibly switching to Mounjaro if unable to control the appetite to see if he has more appetite suppression with Mounjaro over Ozempic. He wants to hold off on this. (2) BMI 50.0-59.9, adult: Code(s): Z68.43 - Body mass index [BMI] 50.0-59.9, adult Category: Medical Plan: As above. I have encouraged more physical activity, less caloric intake, reducing carbohydrates, processed food and fast food. (3) Hypertension: Code(s): I10 - Essential (primary) hypertension Category: Medical Qualifiers: Hypertension type: essential hypertension Qualified Code(s): I10 - Essential (primary) hypertension Plan: Elevated above goal but did not yet take his medication today. (4) Hyperlipidemia: Code(s): E78.5 - Hyperlipidemia, unspecified Category: Medical Qualifiers: Hyperlipidemia type: unspecified Qualified Code(s): E78.5 - Hyperlipidemia, unspecified Plan: Reports compliance with simvastatin. Orders: Orders 2 AMB Hemoglobin A1c Today E11.65 - Type 2 diabetes mellitus with hyperglycemia, Z79.4 - long-term (current) use of insulin Medications: New lisinopril 20 mg PO DAILY 90 tabs 3RF Refilled 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 sensor (FreeStyle Urszula 3 Plus Sensor device) Use daily As directed to monitor glucose 2 ea 5RF E08.29 - Diabetes mellitus due to underlying condition with other diabetic kidney complication, R80.9 - Proteinuria, unspecified, Z79.4 - long-term (current) use of insulin metformin 1,000 mg PO BID 1 month 180 tabs 3RF empagliflozin (Jardiance) 25 mg PO DAILY 90 tabs 3RF metformin 1,000 mg PO BID 180 tabs 3RF 1 month semaglutide (Ozempic) 2 mg (0.75 mL) subcut QWEEK 3 mL 4RF semaglutide (Ozempic) 2 mg (0.75 mL) subcut QWEEK 3 mL 4RF empagliflozin (Jardiance) 25 mg PO DAILY 90 tabs 3RF 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 sensor (FreeStyle Urszula 3 Plus Sensor device) Use daily As directed to monitor glucose 2 ea 5RF E08.29 - Diabetes mellitus due to underlying condition with other diabetic kidney complication, R80.9 - Proteinuria, unspecified, Z79.4 - watermelon inspector (current) use of insulin Discontinued pen needle, diabetic (BD Ultra-Fine Suzy Pen Needle) Discontinued Reason: Doctor's Order As directed four times a day 125 ea 11RF E11.40 - Type 2 diabetes mellitus with diabetic neuropathy, unspecified 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 sensor (FreeStyle Urszula 3 Sensor device) Discontinued Reason: Doctor's Order Apply every 14 days As directed to monitor blood glucose 2 ea 11RF E11.9 - Type 2 diabetes mellitus without complications, Z79.4 - watermelon inspector (current) use of insulin Coding Level of Care Code Est Pt Level 4 (07764) Complex EM visit Add On G2211 Diagnoses Uncontrolled type 2 diabetes mellitus with hyperglycemia, with long-term current use of insulin E11.65; Z79.4 BMI 50.0-59.9, adult Z68.43 Essential hypertension I10 Hypertension type: essential hypertension Hyperlipidemia, unspecified hyperlipidemia type E78.5 Hyperlipidemia type: unspecified
[2024-12-29 11:21] LABS: Glucose, Whole Blood 199 mg/dL (60-115)
== END 2024-12-29 11:48 | disposition home or self-care (01) ==
PROVIDERS: PCP Family Medicine; Visit Provider Physician Assistant
DX: E11.65 Type 2 diabetes mellitus with hyperglycemia (principal); Z79.4 Long term (current) use of insulin; Z68.43 Body mass index [BMI] 50.0-59.9, adult; I10 Essential (primary) hypertension; E78.5 Hyperlipidemia, unspecified

== ENCOUNTER → 2024-12-29 10:58 | Outpatient (BNVA) | payer OTHER, SELFPAY | PROVIDERS: PCP Family Medicine; Visit Provider Physician Assistant | DX: E11.65 Type 2 diabetes mellitus with hyperglycemia (principal); E11.29 Type 2 diabetes mellitus with other diabetic kidney complication; E11.40 Type 2 diabetes mellitus with diabetic neuropathy, unspecified; E66.01 Morbid (severe) obesity due to excess calories; I10 Essential (primary) hypertension; E78.5 Hyperlipidemia, unspecified; K76.0 Fatty (change of) liver, not elsewhere classified; R80.9 Proteinuria, unspecified; Z79.84 Long term (current) use of oral hypoglycemic drugs; Z68.43 Body mass index [BMI] 50.0-59.9, adult; Z79.4 Long term (current) use of insulin; Z79.899 Other long term (current) drug therapy | CPT/HCPCS: 82947; 83036; 99212 ==

== ENCOUNTER 2025-02-04 10:56 | Outpatient (AMB) | payer OTHER, SELFPAY ==
[2025-02-04 10:46] VITALS: BP 140/90; PULSE 100; TEMP 36.3; O2SAT 99; BMI 52.0
--- NOTE | 2025-02-04 10:46 | A.OFFPC_ITS ---
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 The issue initiated after a fall down the stairs a week prior to 's , with symptoms manifesting approximately 10 days later. Despite undergoing various imaging tests, including an x-ray, CT scan, and thoracic spine x-ray, no abnormalities were identified. The pain has progressively interfered with the patient's ability to perform certain movements, such as raising the arms behind the back. In terms of diabetes management, the patient has a Type 2 Diabetes Mellitus diagnosis and has experienced a significant decrease in A1c levels from 11 to 6.7. The patient has been using several medications but reported non-adherence to some of them due to issues like forgetting to refill the prescriptions. Weight-related discussions highlighted the patient's significant weight loss from 408 to 350 lbs over the past year and a half but noted a recent plateau. The patient's history of high blood pressure is compounded by non-adherence to antihypertensive medications. Additionally, there is a history of neuropathy believed to be secondary to diabetes. The patient also has a previous diagnosis of hyperlipidemia as well as MIRANDA based on a prior abdominal ultrasound. Medical History: - Essential Hypertension - Type 2 Diabetes Mellitus - Neuropathy associated with Diabetes Me llitus - Hyperlipidemia - Nonalcoholic Steatohepatitis (MIRANDA) - Chronic joint and shoulder pain - Obesity Surgical History: - No past surgeries reported. Medications: - Ozempic 2 mg weekly for Type 2 Diabete s Mellitus - Jardiance 25 mg for Type 2 Diabetes Me llitus - Metformin 1000 mg for Type 2 Diabetes Mellitus - Lisinopril 20 mg for Essential Hyperte nsion - Metoprolol succinate 50 mg daily for E ssential Hypertension - Simvastatin 10 mg daily for Hyperlipid emia - Gabapentin 900 mg for Neuropathy Family History: - Maternal history of thyroid cancer. - Paternal family history of thyroid can cer, bladder cancer, brain cancer, and lung cancer. Diagnostic Results: - Imaging: X-rays and thoracic spine CT scan show no abnormalities. - Blood Work: A1c at 6.7 as of December; c holesterol and TSH levels checked with LDL noted at 115 and TSH at 1.49. Social: - Employment: Works at [employer]. - Lifestyle: Reports being active with r egular employment but highlights issues with nutritional intake of predominantly coffee, bread, meat, and processed foods. - Substance Use: Denies smoking, drug us e, and minimal alcohol consumption (once or twice a year). - Support System: Has family support and a pet cat, which positively influences mood. [facility] Medical History GERD (gastroesophageal reflux disease) BMI 50.0-59.9, adult Morbid obesity Neuropathy Vitamin D deficiency Hyperlipidemia Hypertension Type 2 diabetes mellitus with diabetic neuropathy Surgical History Hx of circumcision Family History Father Diabetes Mother Diabetes Social History Household Members: Family Household Members Other:: brothers Housing: Apartment Alcohol intake: never Patient Tobacco Use Status: Never used Tobacco e-Cigarette/Vaping Use: Never Used service: No Current occupational status: employed Current occupation: [employer] Cognitive needs: No Hearing needs: No Vision needs: No Questionnaire PHQ-9 Over the last 2 weeks, how often have you been bothered by any of the following problems? 1. Little interest or pleasure in doing things: not at all 2. Feeling down, depressed, or hopeless: not at all 3. Trouble falling or staying asleep, or sleeping too much: not at all 4. Feeling tired or having little energy: not at all 5. Poor appetite or overeating: not at all 6. Feeling bad about yourself - or that you are a failure or have let yourself or your family down: not at all 7. Trouble concentrating on things, such as reading the newspaper or watching television: not at all 8. Moving or speaking so slowly that other people could have noticed. Or the opposite - being so fidgety or restless that you have been moving around a lot more than usual: not at all 9. Thoughts that you would be better off or of hurting yourself in some way: not at all Total score: 0 Depression Screening Interpretation: Negative Depression Screening Done: Yes [id number] - PHQ-9 Billing: Yes Source: Developed by Drs. Pa Case, Kierra Ba, César Farris and colleagues, with an educational francine from [employer]. Thrive Questionnaire Date Thrive assessed: 02/04/25 I am a: Patient What is your living situation today?: I have a steady place to live Within the past 12 months, did the food you bought not last and you didn't have the money to get more?: Never true Within the past 12 months, did you worry whether your food would run out before you got money to buy more?: Never true Do you have trouble paying for medicines?: No Do you have trouble getting transportation to medical appointments?: No Do you have trouble paying your heating and electricity bill?: No Do you have trouble taking care of your child, family member or friend?: No Do you have trouble with day-to-day activities such as bathing, preparing meals, shopping, managing finances, etc.?: No Are you currently unemployed and looking for a job?: No Are you interested in more education?: No THRIVE Score: 0 AUDIT C Alcohol Use Questionnaire (AUDIT-C) 1. How often do you have a drink containing alcohol?: Monthly or less 2. How many drinks containing alcohol do you have on a typical day when you are drinking?: 1 or 2 3. How often do you have six or more drinks on one occasion?: Never Total Score: 1 Score Reviewed/Action Taken: Yes AMY-7 AMB Questionnaire AMY-7 Date AMY - 7 assessed: 02/04/25 Feeling nervous, anxious, or on edge: 0 = Not at all Not being able to stop or control worryin = Not at all Worrying too much about different things: 0 = Not at all Trouble relaxin = Not at all Being so restless that it is hard to sit still: 0 = Not at all Becoming easily annoyed or irritable: 0 = Not at all Feeling afraid as if something awful might happen: 0 = Not at all Total AMY-7 score (0-4 normal; 5-9 mild; 10-14 moderate; 15-21 severe): 0 Source: Developed by Drs. Pa Case, Kierra Ba, César Farris and colleagues, with an educational francine from [employer]. AMY-7 Assessment Billing AMY-7 Assessment Tool: AMY-7 Assessment 32598 Review of Systems Const Details: - Musculoskeletal: Reports pain in shoulders and joints, specifically issues with raising arms. - Endocrine: Reports weight loss plateau and decreased appetite. - Cardiovascular: Denies any self-reported symptoms; history of elevated blood pressure. - Neurological: Denies new symptoms beyond existing neuropathy. - Gastrointestinal: Denies abdominal pain. All systems reviewed & are unremarkable except as reviewed in HPI and above Physical exam (Primary Care) Vital Signs: Last Vital Signs Temp 97.3 F 02/04/25 10:46 Pulse 100 02/04/25 10:46 BP 140/90 H 02/04/25 10:46 Pulse Ox 99 02/04/25 10:46 Oxygen Delivery Method Room Air 02/04/25 10:46 BMI result Body Mass Index 52.0 Tobacco/Smoking Status: Tobacco use Status Tobacco use date assessed 02/04/25 02/04/25 10:48 Patient Tobacco Use Status Never used Tobacco 02/04/25 10:48 e-Cigarette/Vaping Use Never Used 02/04/25 10:48 PHQ-9: PHQ-9 Score PHQ-9: Total score 0 02/04/25 11:08 Depression Screening Interpretation: Negative Thrive Assessment: Date of Thrive Assessment Date Thrive assessed 02/04/25 02/04/25 10:48 Const Other: General: +Alert and oriented, Well nourished, No acute distress. Eye: Pupils are equal, round and reactive to light, Intact accommodation, Extra ocular movements are intact, Normal conjunctiva, Vision unchanged. HENT: Normocephalic, Atraumatic, Tympanic membranes are clear, Normal hearing, Oral mucosa is moist, No pharyngeal erythema, Ear canals patent. Respiratory: Lungs CTA bilaterally, No wheeze, Respirations are non-labored. Cardiovascular: Regular rate, Regular rhythm, S1 auscultated, S2 auscultated, No murmur, Good pulses equal in all extremities, Normal peripheral perfusion, No edema. Gastrointestinal: Soft, Non-tender, Non-distended, Normal bowel sounds, No organomegaly. Musculoskeletal: Limited range of motion in arms, Pain in legs and shoulder blades, Normal strength, No swelling, No deformity, Normal gait. Integumentary: Warm, Dry, [place], Intact. Neurologic: Alert, Oriented, Normal sensory, Normal motor function, No focal defects, Cranial Nerves II-XII are grossly intact, Normal deep tendon reflexes. Psychiatric: Cooperative, Appropriate mood & affect, Normal judgment. 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 The patient has no clear hypertension symptoms but current measures and medication adherence will be monitored for effective management. Code(s): I10 - Essential (primary) hypertension Category: Medical Qualifiers: Hypertension type: essential hypertension Qualified Code(s): I10 - Essential (primary) hypertension Plan: - Reinforce adherence to antihypertensive medications (lisinopril, metoprolol). - Encourage picking up refilled prescriptions timely. (2) Uncontrolled type 2 diabetes mellitus with hyperglycemia, with long-term current use of insulin: Comment: - Achieved a significant A1c reduction to 6.7. - Maintain current treatment with Ozempic, and restart metformin and Jardiance as prescribed. - Encourage nutritional counseling and potential bariatric surgery evaluation to aid weight loss and diabetes management. Code(s): E11.65 - Type 2 diabetes mellitus with hyperglycemia; Z79.4 - terminal supervisor (current) use of insulin Category: Medical Plan: - Emphasize adherence to treatment plan with Ozempic, metformin, and Jardiance. - Referred to podaitry - Continued follow up with opthalmology (3) Type 2 diabetes mellitus with diabetic neuropathy: Comment: - Reinforce importance of gabapentin 900 mg for managing symptoms of neuropathy. Code(s): E11.40 - Type 2 diabetes mellitus with diabetic neuropathy, unspecified Category: Medical Qualifiers: Diabetes mellitus [facility] insulin use: with long chain quiller tender use Qualified Code(s): E11.40 - Type 2 diabetes mellitus with diabetic neuropathy, unspecified; Z79.4 - nursing home (current) use of insulin Plan: - Restart gabapentin 900 mg to alleviate symptoms. (4) Hyperlipidemia: Comment: - Continue with simvastatin 10 mg daily and recommend dietary adjustments to minimize LDL levels and improve overall cholesterol profile. Code(s): E78.5 - Hyperlipidemia, unspecified Category: Medical Qualifiers: Hyperlipidemia type: unspecified Qualified Code(s): E78.5 - Hyperlipidemia, unspecified (5) BMI 50.0-59.9, adult: Comment: - Despite significant weight loss (60 pounds), evaluation by a bariatric surgeon recommended to support further weight loss, which could positively affect other health issues. Code(s): Z68.43 - Body mass index [BMI] 50.0-59.9, adult Category: Medical (6) Cyst of cystic duct or gallbladder: Comment: Referred to General surgery to consider elective cholecystectomy since he was having intermittent symptoms, this seems to resolved after being put on Creon as this is not seen on subsequent ultrasounds. Gallbladder is moderately distended with septation/folds within the fundus on most recent ultrasound - At this time has no symptoms therefore will hold off on further evaluation. Code(s): K83.5 - Biliary cyst Category: Medical (7) MIRANDA (nonalcoholic steatohepatitis): Comment: The liver is enlarged. The liver echotexture is increased. The liver contour is normal. No focal hepatic lesion. There is no intrahepatic biliary duct dilatation seen. - Will continue regular screening of his liver Code(s): K75.81 - Nonalcoholic steatohepatitis (MIRANDA) Category: Medical Plan: Health maintenance: - Discussed importance of regular ophthalmology and podiatry evaluations. - Encourage reduction in processed food intake and pursuing healthier diet options. - Consideration for bariatric surgery as part of weight management to address multiple health concerns. Patient was informed and verbally consented to the use of an ambient scribe for clinic note documentation during this visit. Plan During the discussion, the primary focus was managing the patient's chronic medical conditions?hypertension, diabetes, obesity, and associated neuropathy. Each condition's management plan emphasized the importance of medication adherence and lifestyle modifications, including weight management and dietary changes. Bariatric surgery as a viable option to facilitate weight and diabetes control was also discussed. I advised the patient on the implications of inadequate blood pressure and diabetic control, particularly regarding kidney protection and neuropathy prevention. Moreover, the necessity of follow-up with specialized care such as ophthalmology and podiatry was communicated, alongside the benefits of these consults in diabetes management. Orders: Orders US abdomen limited Today K75.81 - Nonalcoholic steatohepatitis (MIRANDA) Referrals Bariatric Surgery Referral Z68.43 - Body mass index [BMI] 50.0-59.9, adult Podiatry Referral E11.65 - Type 2 diabetes mellitus with hyperglycemia, Z79.4 - nursing home (current) use of insulin Medications: New simvastatin 10 mg PO BEDTIME 90 tabs 3RF metoprolol succinate ER Take 50mg by mouth in AM, take 100mg by mouth in PM. 50 mg PO DAILY 90 tabs 3RF Changed From gabapentin Dose inc by Dr. Cooley 03/04/24. 900 mg PO BEDTIME To gabapentin Dose inc by Dr. Cooley 03/04/24. 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 - Increase daily activity to manage shoulder and joint pain. - Consider dietary changes to improve diabetes and hyperlipidemia. - Attend scheduled ophthalmology and podiatry consults. - Follow up with bariatric surgeon for evaluation of weight management options. - Monitor blood pressure and glucose levels regularly and report any concerning symptoms.
== END 2025-02-04 11:26 | disposition home or self-care (01) ==
LOC: HO.HMCHD 10:57
PROVIDERS: PCP Family Medicine; Visit Provider Student in an Organized Health Care Education/Training Program
DX: I10 Essential (primary) hypertension (principal); E11.65 Type 2 diabetes mellitus with hyperglycemia; Z79.4 Long term (current) use of insulin; E11.40 Type 2 diabetes mellitus with diabetic neuropathy, unspecified; E78.5 Hyperlipidemia, unspecified; Z68.43 Body mass index [BMI] 50.0-59.9, adult; K83.5 Biliary cyst; K75.81 Nonalcoholic steatohepatitis (NASH)

== ENCOUNTER → 2025-02-04 10:56 | Outpatient (BNVA) | payer OTHER, SELFPAY | PROVIDERS: PCP Family Medicine; Visit Provider Student in an Organized Health Care Education/Training Program | DX: E11.65 Type 2 diabetes mellitus with hyperglycemia (principal); E11.40 Type 2 diabetes mellitus with diabetic neuropathy, unspecified; I10 Essential (primary) hypertension; E78.5 Hyperlipidemia, unspecified; K83.5 Biliary cyst; K75.81 Nonalcoholic steatohepatitis (NASH); E66.01 Morbid (severe) obesity due to excess calories; Z68.43 Body mass index [BMI] 50.0-59.9, adult; Z79.84 Long term (current) use of oral hypoglycemic drugs; Z79.85 Long-term (current) use of injectable non-insulin antidiabetic drugs; Z79.899 Other long term (current) drug therapy; Z13.31 Encounter for screening for depression; Z13.39 Encounter for screening examination for other mental health and behavioral disorders | CPT/HCPCS: 96127; 99202 ==

== ENCOUNTER 2025-03-21 17:47 | Emergency (ER) | payer OTHER, SELFPAY ==
[2025-03-21 17:54] VITALS: BP 160/97; PULSE 112; RESP 18; TEMP 36.7; O2SAT 97; BMI 54.6
--- NOTE | 2025-03-21 17:56 | ED_ITS ---
HPI - General Adult General Chief complaint: Recheck/Abnormal Lab/Rx Stated complaint: blood sugar dropping Time Seen by Provider: 03/21/25 22:27 Source: patient Mode of arrival: ambulatory Limitations: no limitations History of Present Illness ED Provider: Dr. Kerrie Sanchez HPI narrative: Patient comes to the emergency room complaining of getting low glucose readings, including just prior to arrival and in triage. Patient states that he is not symptomatic. Patient states that prior to arrival, patient's glucose was 47. Patient known to be diabetic. 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 #1 ea 02/18/24 (FreeStyle Urszula 3 [place]) naproxen 500 mg tablet 500 mg PO BID PRN pain #14 t abs 12/02/24 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 sensor (FreeStyle #2 ea 12/29/24 Urszula 3 Plus Sensor device) empagliflozin 25 mg tablet 25 mg PO DAILY #90 tabs (Jardiance) lisinopril 20 mg tablet 20 mg PO DAILY #90 tabs 01/13 09/05 metformin 1,000 mg tablet 1,000 mg PO BID 1 month #180 tabs 02/04/25 metoprolol succinate 50 mg 50 mg PO DAILY #90 tabs tablet,extended release 24 hr simvastatin 10 mg tablet 10 mg PO BEDTIME #90 tabs gabapentin 300 mg capsule 900 mg (3 x 300 mg) PO BEDTI ME 90 03/04/25 days #270 caps Allergies Allergy/AdvReac Type Severity Reaction Status Date / Time No Known Allergies Allergy Verified 03/21/25 17:59 Review of Systems 2 Review of Systems: Constitutional : No Weight loss, No Fever, No Chills, No Night Sweats, No Fatigue, No Malaise ENT/Mouth : No Hearing loss, No Ear Pain, No Nasal Congestion, No Sinus Pain, No Hoarseness, No sore throat, No Rhinorrhea, No Swallowing Difficulty Eyes: No Eye Pain, No Swelling, No Redness, No Foreign Body, No Discharge, No Vision Changes Cardiovascular : No Chest Pain, No SOB, No Dyspnea on Exertion, No Orthopnea, No Edema, No Palpitations Respiratory : No Cough, No Sputum, No Wheezing, No Smoke Exposure, No Dyspnea Gastrointestinal : No Nausea, No Vomiting, No Diarrhea, No Constipation, No abdominal Pain, No Hematochezia, No Melena Genitourinary : no irregular bleeding, No Dysuria, No Urinary Frequency, No Hematuria, No Urinary Incontinence, No Urgency, No Flank Pain, No Urinary Flow Changes, No Hesitancy Musculoskeletal : No joint pain, No Myalgias, No Joint Swelling Skin : No Skin Lesions, No rash Neuro : No Weakness, No Numbness, No Paresthesias, No Loss of Consciousness, No Dizziness, No Headache Psych : No Anxiety/Panic, No Depression, No SI/HI/AH/VH, No Social Issues, Heme/Lymph: No Bruising, No Bleeding,No Lymphadenopathy Endocrine : No Polyuria, No Polydipsia, No Temperature Intolerance, complaining of low glucose reads [facility] Past Medical History Medical History GERD (gastroesophageal reflux disease) BMI 50.0-59.9, adult Morbid obesity Neuropathy Vitamin D deficiency Hyperlipidemia Hypertension Type 2 diabetes mellitus with diabetic neuropathy Surgical History Hx of circumcision Family History Family History Father Diabetes Mother Diabetes Social History Social History Household Members: Family Household Members Other:: brothers Housing: Apartment Alcohol intake: never Patient Tobacco Use Status: Never used Tobacco Smoked in Last 30 Days: No e-Cigarette/Vaping Use: Never Used Use of substances other than those prescribed or required for medical reasons: No Advance Directives: No Advance Directives Information Provided: No service: No Current occupational status: employed Current occupation: [employer] Cognitive needs: No Hearing needs: No Vision needs: No Physical Exam ED Exam Exam: Appearance: Alert. Oriented X3. No acute distress. Eyes: Pupils equal, round and reactive to light. ENT: Pharynx normal. Neck: Normal inspection. Neck supple. No lymph nodes noted. No crepitus CVS: Normal heart rate and rhythm. Pulses normal. Normal S1 and S2 Respiratory: No respiratory distress. Breath sounds normal. No Wheezing. No rales Abdomen: Soft and nontender. No rigidity. No distention. Skin: Skin warm and dry. Normal skin color. Normal skin turgor. Extremities: No lower extremity edema. No Lacerations. No Rash Neuro: Oriented X 3. No motor deficit. No sensory deficit. Moving all extremities. No slurred speech. CN 2 through 12 grossly intact Psych: calm, cooperative, normal affect Vital Signs: Vital Signs - 24 hr 03/21/25 17:54 Temperature 98.1 F Pulse Rate 112 H Respiratory Rate 18 Blood Pressure 160/97 H Pulse Oximetry 97 Oxygen Delivery Method Room Air BMI result Body Mass Index 54.6 Course Course Course Narrative: Medical screening exam performed. Please refer to detailed history, exam, evaluation, and management by primary provider. At home glucose monitoring reading 47. At triage, 192. Patient reports having pineapple at home. Feels fatigued and weak. JS Medical Decision Making Medical Decision Making [facility] Narrative: My interpretation of labs: No significant abnormality in patient's hematology and chemistry, normal LFTs, negative beta hydroxybutyrate Patient's point of care was 196, the chemistry shows a glucose of 178. Patient remains asymptomatic I discussed with the patient that it is likely that his glucometer either has low battery versus is not well calibrated. Patient states that he will follow- up with his pharmacist tomorrow Differential Diagnosis Differential Diagnoses: The differential diagnosis associated with the presentation includes (Diabetic hypoglycemia, glucometer malfunction, accidental medication overdose) Lab Data [facility] Lab Attestation statement: I reviewed the patient's lab results. 03/21/25 19:36 03/21/25 19:36 Labs: Lab Results 03/21/25 03/21/25 Range/Units 17:57 19:36 WBC 10.6 (4.8-10.8) X10*3/uL RBC 5.09 (4.60-5.80) X10*6/uL Hgb 13.8 L (14.0-18.0) g/dl Hct 41.7 L (42.0-52.0) % MCV 81.9 (80.0-98.0) fL MCH 27.1 (27.0-33.0) pg MCHC 33.1 (31.0-36.0) g/dl RDW 13.1 (11.0-16.0) % Plt Count 272 (160-400) X10*3/uL MPV 10.6 (9.4-12.4) fL Immature Gran % (Auto) 0.6 H (0.0-0.4) % Neut % (Auto) 56.9 (45-73) % Lymph % (Auto) 33.9 (20-40) % Davidson % (Auto) 6.8 (2-11) % Eos % (Auto) 1.2 (0-4) % Baso % (Auto) 0.6 (0-2) % Lymph # (Auto) 3.6 (1.2-4.9) X10*3/uL Davidson # (Auto) 0.7 (0.1-1.2) X10*3/uL Eos # (Auto) 0.1 (0.0-0.4) X10*3/uL Baso # (Auto) 0.1 (0.0-0.2) X10*3/uL Abs Immat Gran (auto) 0.06 H (0.00-0.03) X10*3/uL Absolute Neuts (auto) 6.1 (2.0-8.3) x10*3/uL Absolute Nucleated RBC 0.000 (0.0-0.012) X10*3/uL Nucleated RBC % (auto) 0.0 (0.0-0.2) /100WBC Smear Tech's Comments VERIFIED Sodium 137 (135-145) mmol/L Potassium 4.8 (3.3-5.1) mmol/L Chloride 106 (96-108) mmol/L Carbon Dioxide 21 L (22-29) mmol/L Anion Gap 15 (12-20) BUN 14 (9-16) mg/dL Creatinine 0.71 (0.5-1.4) mg/dL Estim Creat Clear Calc 222.8 Estimated GFR > 60 POC Glucose 196 H (60-115) mg/dL Random Glucose 178 H (60-115) mg/dL Lactic Acid 1.7 (0.5-2.0) mmol/L Calcium 8.8 (8.4-10.2) mg/dL Total Bilirubin 0.2 (0.0-1.0) mg/dL AST 26 (5-37) U/L ALT 23 (0-40) U/L Alkaline Phosphatase 87 (39-117) U/L Total Protein 8.0 (6.5-8.0) g/dL Albumin 4.4 (3.5-5.0) g/dL Lipase 37 (8-78) U/L Beta-Hydroxybutyrate 0.07 (0.02-0.27) mmol/L Discharge Plan Discharge Clinical Impression: Low blood sugar reading Patient Disposition: Home, Self-Care Instructions: Hypoglycemia in a Person with Diabetes (ED) Additional Instructions: Please follow-up with your pharmacist tomorrow, your glucometer may need to be calibrated. Please follow-up with your primary care physician tomorrow. If you have any worsening or new symptoms, please return to the emergency room or call 911 Prescriptions: No Action gabapentin 300 mg capsule 900 mg PO BEDTIME 90 Days Qty: 270 1RF naproxen 500 mg tablet 500 mg PO BID PRN (Reason: pain) Qty: 14 0RF (DME) FreeStyle Precision Denis Strips Strip See Rx Instructions .ROUTE .MEDSUPPLY Qty: 10 Rx Instructions: As directed (DME) FreeStyle Urszula 3 [place] Misc See Rx Instructions .ROUTE .MEDSUPPLY Qty: 1 0RF Rx Instructions: Use daily As directed to monitor blood glucose magnesium oxide 250 mg magnesium tablet 250 mg PO DAILY (DME) FreeStyle Urszula 3 Plus Sensor Device See Rx Instructions .ROUTE .MEDSUPPLY Qty: 2 5RF Rx Instructions: Use daily As directed to monitor glucose Ozempic 1 mg/dose (4 mg/3 mL) pen injector 1 mg subcut QWEEK lisinopril 20 mg tablet 20 mg PO DAILY Qty: 90 3RF metoprolol succinate 50 mg tablet extended release 24 hr 50 mg PO DAILY Qty: 90 3RF Rx Instructions: Take 50mg by mouth in AM, take 100mg by mouth in PM. metformin 1,000 mg tablet 1,000 mg PO BID 30 Days Qty: 180 3RF Jardiance 25 mg tablet 25 mg PO DAILY Qty: 90 3RF simvastatin 10 mg tablet 10 mg PO BEDTIME Qty: 90 3RF Interventions: ED Discharge Assessment Last Done: 03/21/25 22:52 Discharge Date/Time: 03/21/25 23:15 Print Language: Citizen Of [place]
[2025-03-21 18:05] LABS: Glucose, Whole Blood 196 mg/dL (60-115)
[2025-03-21 20:08] LABS: Alanine Aminotransferase 23 U/L (0-40); Albumin Level 4.4 g/dL (3.5-5.0); Alkaline Phosphatase 87 U/L (39-117); Anion Gap 15 (12-20); Aspartate Amino Transferase 26 U/L (5-37); Blood Urea Nitrogen 14 mg/dL (9-16); Calcium 8.8 mg/dL (8.4-10.2); Carbon Dioxide 21 mmol/L (22-29); Chloride 106 mmol/L (96-108); Creatinine Clr Calc Pharmacy 222.8; Estimated Glomerular Filt Rate > 60; Lipase 37 U/L (8-78); Potassium 4.8 mmol/L (3.3-5.1); Sodium 137 mmol/L (135-145); Total Protein 8.0 g/dL (6.5-8.0)
[2025-03-21 20:20] LABS: Mean Corpuscular Volume 81.9 fL (80.0-98.0); NRBC Abs Auto 0.000 X10*3/uL (0.0-0.012); NRBC Pct Auto 0.0 /100WBC (0.0-0.2); PLT CLUMP 1; SCAN SMEAR FLAG 1
[2025-03-21 20:23] LABS: Hematocrit 41.7 % (42.0-52.0); Hemoglobin 13.8 g/dl (14.0-18.0); Imm Gran Abs Auto 0.06 X10*3/uL (0.00-0.03); Imm Gran Pct Auto 0.6 % (0.0-0.4); Lymphocytes Absolute Auto 3.6 X10*3/uL (1.2-4.9); MANUAL DIFF FLAG SCAN; Mean Corpuscular HGB Conc 33.1 g/dl (31.0-36.0); Mean Corpuscular Hemoglobin 27.1 pg (27.0-33.0); Red Blood Count 5.09 X10*6/uL (4.60-5.80)
[2025-03-21 21:11] LABS: Platelet Count 272 X10*3/uL (160-400); White Blood Count 10.6 X10*3/uL (4.8-10.8)
--- NOTE | 2025-03-21 21:30 | PC.NURSE ---
Pt states approx 1 mo ago his diabetes medicine was changed from Ozempic to Monjaro. Pt sates for the past since last night his bgls have been continually decreasing. Last night he dropped to, and today around 1700 he noted a bgl of 47.
[2025-03-21 22:39] VITALS: BP 176/91; PULSE 76; RESP 16; TEMP 37.1; O2SAT 96
[2025-03-21 22:52] VITALS: BP 176/91; PULSE 76; RESP 16; TEMP 37.1; O2SAT 96
== END 2025-03-21 23:15 | disposition home or self-care (01) ==
PROVIDERS: Physician Assistant; Emergency Provider Emergency Medicine; PCP Internal Medicine
DX: E11.649 Type 2 diabetes mellitus with hypoglycemia without coma (principal); I10 Essential (primary) hypertension
CPT/HCPCS: 36415; 80053; 82010; 82947; 83605; 83690; 85025; 99283; 99284

== ENCOUNTER 2025-03-30 10:59 | Outpatient (AMB) | payer OTHER, SELFPAY ==
[2025-03-30 11:16] VITALS: BP 142/86; PULSE 112; O2SAT 96; BMI 54.9
--- NOTE | 2025-03-30 11:16 | MHC.OFFVIS ---
Vital Signs 03/30/25 11:16 Height 5 ft 9 in Weight 371 lb 11.19 oz BMI 54.9 BP 142/86 H Blood Pressure Location Lt brachial Position Sitting Pulse 112 H Pulse Source Pulse Oximeter Pulse Oximetry (%) 96 Oxygen Delivery Method Room Air Intake Visit Reasons: dm Intake Note: Patient present today for Type 2 Diabetes Mellitus Last Diabetic eye exam: Patient has upcoming appt next week. Last Podiatry Visit: Doesn't have one Random Glucose: 179 mg/dl HgA1C: 7.8% Wing Commander Required: No Accompanied by: Self / Same As Patient Allergies No Known Allergies Allergy (Verified 03/30/25 11:23) Medication List - Last Reconciled 03/30/25 by Carolyn Melgoza PA-C blood sugar diagnostic As directed 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 sensor (FreeStyle Urszula 3 Plus Sensor device) Use daily As directed to monitor glucose 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,receiving clerk,cont (FreeStyle Urszula 3 [place]) Use daily As directed to monitor blood glucose empagliflozin (Jardiance) 25 mg PO DAILY gabapentin 900 mg (3 x 300 mg) PO BEDTIME 90 days lisinopril 20 mg PO DAILY magnesium oxide 250 mg PO DAILY metformin 1,000 mg PO BID 1 month metoprolol succinate ER 50 mg PO DAILY naproxen 500 mg PO BID PRN simvastatin 10 mg PO BEDTIME HPI HPI dm: Details: Patient is a 34-year-old male with a significant past medical history of morbid obesity, noncompliance, hypertension, hyperlipidemia, type 2 diabetes, fatty liver presenting today for a follow up regarding his diabetes. Endo: Dm-his last A1c was 6.3. Today it is 7.8. He was diagnosed with diabetes around 2017. He states everyone in his family has type 2 diabetes. He is currently on mounjaro 2.5 mg weekly, metformin 1000 mg twice a day, Jardiance 25 mg daily. -no side effect to mounjaro but has not noticed significant appetite suppression. He states that his sugars are a little bit more elevated than when he was on the Ozempic. He states that it is also partially because of Halloween candy. CGM-G mi 7.6%. Hyperglycemic 50%, in range 44%, hypoglycemic 6% -states that hypoglycemia is false. He had issues with the sensors and they were not true readings. He was on trulicity 4.5 mg in the past and tolerated this well but felt like it was ineffective. He never noticed any decrease blood sugars. Had some GI upset with ozempic. He is on an ANIRUDH inhibitor. Hypoglycemia-states he has not had any episodes in the last few years. Hyperglycemia-does notice increased thirst and urination with this. He does have chronic peripheral neuropathy due to his diabetes. He is on gabapentin for this. CV: Blood pressure today in the office is 142/86. Has not yet taken medication today. He is currently on lisinopril 20 mg and metoprolol 50 mg QAM and 100 mg QPM. Recently started on simvastatin for cholesterol. [facility] Medical History GERD (gastroesophageal reflux disease) BMI 50.0-59.9, adult Morbid obesity Neuropathy Vitamin D deficiency Hyperlipidemia Hypertension Type 2 diabetes mellitus with diabetic neuropathy Surgical History Hx of circumcision Family History Father Diabetes Mother Diabetes Social History Household Members: Family Household Members Other:: brothers Housing: Apartment Alcohol intake: never Patient Tobacco Use Status: Never used Tobacco e-Cigarette/Vaping Use: Never Used service: No Current occupational status: employed Current occupation: [employer] Cognitive needs: No Hearing needs: No Vision needs: No Physical Exam Vital Signs: Last Vital Signs Pulse 112 H 03/30/25 11:16 BP 142/86 H 03/30/25 11:16 Pulse Ox 96 03/30/25 11:16 Oxygen Delivery Method Room Air 03/30/25 11:16 BMI result Body Mass Index 54.9 Const Orientation/consciousness: patient oriented x3 HEENT Ears: hearing grossly normal bilaterally Neck Thyroid: Thyroid normal Lymphatic: no lymphadenopathy noted Resp Auscultation: clear to auscultation bilaterally Cardio Rate: regular rate Rhythm: regular rhythm Heart sounds: S1 normal heart sound present and S2 normal heart sound present Skin General skin exam: no rashes or lesions noted Neuro General: patient oriented x3, gait normal and no focal motor deficits Results AMB Hemoglobin A1c AMB Hemoglobin A1c 7.8 % Last Edit by STEVAN Akbar on 03/30/25 11:35 Results Reviewed Results Reviewed: Laboratory Last Values Glucose (Clinic) 179 mg/dL (60-115) H 03/30/25 11:26 Hgb A1c (Clinic) 7.8 % (4.0-6.0) H 03/30/25 11:29 Laboratory Tests 03/21/25 19:36 Creatinine 0.71 Estimated GFR > 60 Assessment & Plan Assessment & Plan (1) Uncontrolled type 2 diabetes mellitus with hyperglycemia, with long-term current use of insulin: Code(s): E11.65 - Type 2 diabetes mellitus with hyperglycemia; 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 (2) BMI 50.0-59.9, adult: Code(s): Z68.43 - Body mass index [BMI] 50.0-59.9, adult Category: Medical Plan: As above. I have encouraged more physical activity, less caloric intake, reducing carbohydrates, processed food and fast food. (3) Hypertension: Comment: - Refill and adherence to lisinopril and metoprolol medications are critical. The patient has no clear hypertension symptoms but current measures and medication adherence will be monitored for effective management. Code(s): I10 - Essential (primary) hypertension Category: Medical Qualifiers: Hypertension type: essential hypertension Qualified Code(s): I10 - Essential (primary) hypertension Plan: Elevated above goal but did not yet take his medication today. Again reviewed the importance of compliance. (4) Hyperlipidemia: Comment: - Continue with simvastatin 10 mg daily and recommend dietary adjustments to minimize LDL levels and improve overall cholesterol profile. Code(s): E78.5 - Hyperlipidemia, unspecified Category: Medical Qualifiers: Hyperlipidemia type: unspecified Qualified Code(s): E78.5 - Hyperlipidemia, unspecified Plan: Reports recent compliance with simvastatin. Orders: Orders AMB Hemoglobin A1c Today E11.40 - Type 2 diabetes mellitus with diabetic neuropathy, unspecified, Z13.9 - Encounter for screening, unspecified, Z79.4 - intermediate (current) use of insulin Medications: New tirzepatide (Mounjaro) 5 mg (0.5 mL) subcut QWEEK 2 mL 4RF Coding Level of Care Code Est Pt Level 4 (86672) Complex EM visit Add On G2211 Diagnoses Uncontrolled type 2 diabetes mellitus with hyperglycemia, with long-term current use of insulin E11.65; Z79.4 BMI 50.0-59.9, adult Z68.43 Essential hypertension I10 Hypertension type: essential hypertension Hyperlipidemia, unspecified hyperlipidemia type E78.5 Hyperlipidemia type: unspecified
[2025-03-30 11:31] LABS: Glucose, Whole Blood 179 mg/dL (60-115)
== END 2025-03-30 11:48 | disposition home or self-care (01) ==
LOC: HO.ENCR 11:00
PROVIDERS: PCP Family Medicine; Visit Provider Physician Assistant
DX: E11.65 Type 2 diabetes mellitus with hyperglycemia (principal); Z79.4 Long term (current) use of insulin; Z68.43 Body mass index [BMI] 50.0-59.9, adult; I10 Essential (primary) hypertension; E78.5 Hyperlipidemia, unspecified; Z13.9 Encounter for screening, unspecified; E11.40 Type 2 diabetes mellitus with diabetic neuropathy, unspecified

== ENCOUNTER → 2025-03-30 10:59 | Outpatient (BNVA) | payer OTHER, SELFPAY | PROVIDERS: PCP Family Medicine; Visit Provider Physician Assistant | DX: E11.65 Type 2 diabetes mellitus with hyperglycemia (principal); E11.40 Type 2 diabetes mellitus with diabetic neuropathy, unspecified; Z68.43 Body mass index [BMI] 50.0-59.9, adult; I10 Essential (primary) hypertension; E78.5 Hyperlipidemia, unspecified; Z79.4 Long term (current) use of insulin | CPT/HCPCS: 82947; 83036; 99212 ==

== ENCOUNTER 2025-04-07 08:58 | Emergency (ER) | payer OTHER, SELFPAY ==
--- NOTE | ~2025-04-07 | XR_ITS ---
EXAMINATION: XR KNEE, RIGHT CLINICAL INFORMATION: pain, injury COMPARISON: None available. TECHNIQUE: Four views of the right knee. FINDINGS: No fracture or joint effusion. Alignment is anatomic. Joint spaces are maintained. No abnormal soft tissue calcification. XR/XR knee RT 4V IMPRESSION: Normal right knee. Electronically signed by: Paige Gallegos MD 04/07/2025 09:42 AM [facility]
--- NOTE | ~2025-04-07 | XR_ITS ---
EXAMINATION: XR LUMBOSACRAL SPINE CLINICAL INFORMATION: pain, injury COMPARISON: None available. TECHNIQUE: Three views of the lumbosacral spine. FINDINGS: The vertebral bodies and posterior elements are normal. The disc spaces are preserved and the vertebral alignment is normal. The paraspinal soft tissues are normal. XR/XR lumbar spine 2-3V IMPRESSION: Unremarkable examination. Electronically signed by: Paige Gallegos MD 04/07/2025 09:42 AM [facility]
--- NOTE | ~2025-04-07 | XR_ITS ---
EXAMINATION: XR SHOULDER, LEFT CLINICAL INFORMATION: pain, injury COMPARISON: None available. TECHNIQUE: 3 views of the left shoulder. FINDINGS: The bones and soft tissues are normal. No fracture. Glenohumeral and acromioclavicular alignment is anatomic with normal joint space. No abnormal soft tissue calcifications. XR/XR shoulder LT min 2V IMPRESSION: Normal left shoulder. Electronically signed by: Paige Gallegos MD 04/07/2025 09:41 AM EST
[2025-04-07 09:02] VITALS: BP 180/111; PULSE 112; RESP 20; TEMP 36.1; O2SAT 98; BMI 53.9
--- NOTE | 2025-04-07 09:04 | ED_ITS ---
HPI - General Adult General Chief complaint: Back Pain/Injury Stated complaint: Back Pain Time Seen by Provider: 04/07/25 09:04 Source: patient Mode of arrival: ambulatory Limitations: no limitations History of Present Illness ED Provider: Veronique Saenz PA-C HPI narrative: Patient is a 34 year old assigned male at with a history of DM, HTN, MIRANDA, HLD, and questionable medication compliance presenting to the emergency department today with left shoulder pain, right knee pain, and back pain after a fall. Patient states that he slipped and fell down 4 stairs injuring his left sh oulder, right knee, and his back. Patient states that he has had blood pressure and takes his medications some times but not all the time. Patient denies any head strike or loss of consciousness with the incident. Patient denies any other complaints at this time. 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 #1 ea 02/18/24 (FreeStyle Urszula 3 [place]) naproxen 500 mg tablet 500 mg PO BID PRN pain #14 t abs 12/02/24 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 sensor (Free[place]yle #2 ea 12/29/24 Urszula 3 Plus Sensor device) empagliflozin 25 mg tablet 25 mg PO DAILY #90 tabs (Jardiance) lisinopril 20 mg tablet 20 mg PO DAILY #90 tabs 01/13 09/05 metformin 1,000 mg tablet 1,000 mg PO BID 1 month #180 tabs 02/04/25 metoprolol succinate 50 mg 50 mg PO DAILY #90 tabs tablet,extended release 24 hr simvastatin 10 mg tablet 10 mg PO BEDTIME #90 tabs gabapentin 300 mg capsule 900 mg (3 x 300 mg) PO BEDTI ME 90 03/04/25 days #270 caps tirzepatide 5 mg/0.5 mL 5 mg (0.5 mL) subcut QWEEK # 2 mL 03/30/25 subcutaneous pen injector (Miguel) cyclobenzaprine 5 mg tablet 5 mg PO TID PRN muscle spa sm 7 04/07/25 days #21 tabs Allergies Allergy/AdvReac Type Severity Reaction Status Date / Time No Known Allergies Allergy Verified 04/07/25 09:04 Review of Systems Constitutional: Constitutional: Reports as per HPI Eyes: Eyes: Reports as per HPI ENT: Reports as per HPI Cardiovascular: Cardiovascular: Reports as per HPI Respiratory: Respiratory: Reports as per HPI Gastrointestinal: Gastrointestinal: Reports as per HPI Genitourinary: Genitourinary: Reports as per HPI Musculoskeletal: Musculoskeletal: Reports as per HPI Integumentary/Breasts: Skin/Breast: Reports as per HPI Neurologic: Reports as per HPI Psychiatric: Psychiatric: Reports as per HPI Endocrine: Endocrine: Reports as per HPI Hematologic/Lymphatic: Hematologic/Lymphatic: Reports as per HPI Allergic/Immunologic: Allergic/Immunologic: Reports as per HPI [facility] Past Medical History Attestation statement: The following information was validated with the patient. Source: old records reviewed and nursing notes reviewed Medical History GERD (gastroesophageal reflux disease) BMI 50.0-59.9, adult Morbid obesity Neuropathy Vitamin D deficiency Hyperlipidemia Hypertension Type 2 diabetes mellitus with diabetic neuropathy Surgical History Hx of circumcision Family History Family History Father Diabetes Mother Diabetes Social History Social History Household Members: Family Household Members Other:: brothers Housing: Apartment Alcohol intake: never Patient Tobacco Use Status: Never used Tobacco e-Cigarette/Vaping Use: Never Used Advance Directives: No Advance Directives Information Provided: Yes Do you have a plan to hurt others: No Plan service: No Current occupational status: employed 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 [employer] Cognitive needs: No Hearing needs: No Vision needs: No Physical Exam ED Vital Signs: Vital Signs - 24 hr 04/07/25 09:02 04/07/25 09:56 04/07/25 09:59 Temperature 97 F 0 F L Pulse Rate 112 H 111 H 111 H Respiratory Rate 20 18 18 Blood Pressure 180/111 H 160/108 H 160/108 H Pulse Oximetry 98 97 97 Oxygen Delivery Method Room Air Room Air Room Air BMI result Body Mass Index 53.9 Const General: cooperative, no acute distress, alert and awake Nutritional Appearance: well nourished Orientation/consciousness: patient oriented x3 HENMT Head: Yes normal to inspection and Yes atraumatic Ears: hearing grossly normal bilaterally and external ears normal General nose exam: Normal external nose present, no nasal discharge noted and no epistaxis Face and sinus: Yes normal facial exam, No abrasion and No laceration Mouth: Normal oral and palatal mucosa present, no drooling and no muffled voice Eyes General: appearance normal, both eyes and all related structures Periorbital: periorbital findings normal Eyelids: Yes eyelids normal Conjunctivae: conjunctivae normal Pupils: Equal, round and reactive pupils present EOM: EOMs intact bilaterally Neck Neck: Yes normal visual inspection and Yes full ROM Resp Effort & Inspection: normal respiratory effort and able to speak in complete sentences Neuro General: patient oriented x3, moves all extremities and CN's II-XI intact bilaterally Cranial nerves: Yes Equal, round and reactive pupils present Cognition (Neuro): normal cognition Extrem General: Yes normal to inspection, Yes full ROM and Yes capillary refill normal Psych Appearance: grossly normal Mental Status: mental status grossly normal Affect: normal affect Attitude: cooperative Thought process: Normal thought process present Thought content: Normal thought content present Insight: Good insight present (Psych) Medical Decision Making Medical Decision Making MDM Narrative: Patient is a 34 year old assigned male at with a history of DM, HTN, MIRANDA, HLD, and questionable medication compliance presenting to the emergency department today with left shoulder pain, right knee pain, and back pain after a fall. Patient's physical exam was as noted in the physical exam portion of this note. Patient's left shoulder, right knee, and lumbar spine x-rays showed no acute process. Patient's clinical presentation is most consistent with musculoskeletal pain after a fall. I explained my physical exam findings as well as all test results to the patient. I answered all questions asked by the patient. Patient declined any pain medication while in the department stating he took 3 advil prior to arrival. I stressed the importance of the patient taking his medication as directed (either prescribed or as the over the counter packaging recommends). I stressed the importance of the patient following up with his primary care provider. I stressed the importance of the patient returning to the emergency department immediately if his symptoms were to worsen or if he were to develop any dizziness, shortness of breath, difficulty breathing, chest pain, blurry vision, loss of vision, nausea, vomiting, abdominal pain, fever, chills, back pain, or any other complaints. Patient verbalized agreement and understanding with this treatment plan and discharge. Differential Diagnosis Differential Diagnoses: The differential diagnosis associated with the presentation includes Fall Musculoskeletal pain Shoulder pain Shoulder fracture Knee pain Knee fracture Admission/Observation Consideration of admission/observation: Escalation of care including admission/ observation considered Patient would have been admitted to the hospital had his work up had any findings where hospital admission was appropriate and his clinical presentation warranted hospital admission. Independent Interpretation I performed an independent interpretation of an: Plain X-Ray Interpretation: My interpretation is in agreement with the radiologist's impression of these imaging studies as written below. EXAMINATION: XR SHOULDER, LEFT CLINICAL INFORMATION: pain, injury COMPARISON: None available. TECHNIQUE: 3 views of the left shoulder. FINDINGS: The bones and soft tissues are normal. No fracture. Glenohumeral and acromioclavicular alignment is anatomic with normal joint space. No abnormal soft tissue calcifications. XR/XR shoulder LT min 2V IMPRESSION: Normal left shoulder. Electronically signed by: Paige Gallegos MD 04/07/2025 09:41 AM EST RP Dictated By: Paige Gallegos MD Signed By: Electronically signed by Paige Gallegos MD 04/07/25 0941 EXAMINATION: XR KNEE, RIGHT CLINICAL INFORMATION: pain, injury COMPARISON: None available. TECHNIQUE: Four views of the right knee. FINDINGS: No fracture or joint effusion. Alignment is anatomic. Joint spaces are maintain ed. No abnormal soft tissue calcification. XR/XR knee RT 4V IMPRESSION: Normal right knee. Electronically signed by: Paige Gallegos MD 04/07/2025 09:42 AM EST RP Dictated By: Paige Gallegos MD Signed By: Electronically signed by Paige Gallegos MD 04/07/25 0942 EXAMINATION: XR LUMBOSACRAL SPINE CLINICAL INFORMATION: pain, injury COMPARISON: None available. TECHNIQUE: Three views of the lumbosacral spine. FINDINGS: The vertebral bodies and posterior elements are normal. The disc spaces are preserved and the vertebral alignment is normal. The paraspinal soft tissues are normal. XR/XR lumbar spine 2-3V IMPRESSION: Unremarkable examination. Electronically signed by: Paige Gallegos MD 04/07/2025 09:42 AM EST [employer]eliner Dictated By: Paige Gallegos MD Signed By: Electronically signed by Paige Gallegos MD 04/07/25 0942 Radiology Impression Discussion of test interpretation with radiology: I have reviewed the radiologist's reading. Prescription Management I considered prescription management with: Pain Medication (patient prescribed pain medication) Discharge Plan Discharge Clinical Impression: Fall Qualifiers: Encounter type: initial encounter Qualified Code(s): W19.XXXA - Unspecified fall, initial encounter Acute shoulder pain Qualifiers: Laterality: left Qualified Code(s): M25.512 - Pain in left shoulder Acute knee pain Qualifiers: Laterality: right Qualified Code(s): M25.561 - Pain in right knee Back pain Qualifiers: Back pain location: back pain in unspecified location Chronicity: acute Back pain laterality: left Qualified Code(s): M54.9 - Dorsalgia, unspecified Patient Disposition: Home, Self-Care Instructions: Knee Pain (ED), Back Pain (ED), Fall Prevention (ED), Shoulder Pain (ED) Additional Instructions: Your left shoulder, right knee, and spine x-rays all showed no evidence of an acute bony process. IF you are prescribed home medications and/or you are taking over the counter medications at home - it is very important you continue to do so as prescribed / directed unless told otherwise by a healthcare provider. Follow up with your primary care provider. Do your best to stay well hydrated and rest. Return to the emergency department immediately if your symptoms worsen or if you develop any numbness, tingling, dizziness, shortness of breath, difficulty breathing, chest pain, blurry vision, loss of vision, nausea, vomiting, abdominal pain, fever, chills, back pain, or any other complaints. If you do not have a primary care provider - call any of the below numbers to establish and follow up with a primary care provider. [facility] Primary Care ([place]) [phone] [place] [address], [address] [facility] Primary Care ([address] [place]) [phone] [place] [address], [address] [facility], [address] [facility] Primary Care ([address] [place]) [phone] [place] [address], [address] [facility], [address] [facility] Primary Care ([place]) [phone] [place] [address] 2 [facility], [address] [facility] Family Medicine [phone] [place] [address], [id number] Please see the information below about our Patient Portal. If you are not yet enrolled in the [facility] Patient Portal, you will receive an enrollment email invitation following your visit to any [facility] setting. You may also self-enroll in the Patient Portal by visiting our website: [email or web address] The following information is required to access the Patient Portal: - Your [facility] Medical Record Number - Your personal home email address (must match what is in your electronic medical record, Registration staff can assist with this) - Name - Date of Capabilities of the Patient Portal: - Message some providers - View upcoming appointments - Access your health summary, medical history, and visit history - View current conditions and allergies - View procedure and lab results - View your medications, including guidelines, side effects, and precautions - Complete pre-appointment questionnaires requested by your provider - Ready summary reports of your office visits and procedures To access the Patient Portal Mobile Marnie, follow these directions: - Search [employer]raft in the Marnie Store or Google collegefeed Store - Download the Marnie - Search for [facility] - Enter your login/password Prescriptions: New cyclobenzaprine 5 mg tablet 5 mg PO TID PRN (Reason: muscle spasm) 7 Days Qty: 21 0RF No Action gabapentin 300 mg capsule 900 mg PO BEDTIME 90 Days Qty: 270 1RF naproxen 500 mg tablet 500 mg PO BID PRN (Reason: pain) Qty: 14 0RF (DME) FreeStyle Precision Denis Strips Strip See Rx Instructions .ROUTE .MEDSUPPLY Qty: 10 Rx Instructions: As directed Mounjaro 5 mg/0.5 mL pen injector 5 mg subcut QWEEK Qty: 2 4RF (DME) FreeStyle Urszula 3 [place] Misc See Rx Instructions .ROUTE .MEDSUPPLY Qty: 1 0RF Rx Instructions: Use daily As directed to monitor blood glucose magnesium oxide 250 mg magnesium tablet 250 mg PO DAILY (DME) FreeStyle Urszula 3 Plus Sensor Device See Rx Instructions .ROUTE .MEDSUPPLY Qty: 2 5RF Rx Instructions: Use daily As directed to monitor glucose lisinopril 20 mg tablet 20 mg PO DAILY Qty: 90 3RF metoprolol succinate 50 mg tablet extended release 24 hr 50 mg PO DAILY Qty: 90 3RF Rx Instructions: Take 50mg by mouth in AM, take 100mg by mouth in PM. metformin 1,000 mg tablet 1,000 mg PO BID 30 Days Qty: 180 3RF Jardiance 25 mg tablet 25 mg PO DAILY Qty: 90 3RF simvastatin 10 mg tablet 10 mg PO BEDTIME Qty: 90 3RF Stand Alone Forms: Work/School Release Interventions: ED Discharge Assessment Last Done: 04/07/25 09:59 Print Language: Bruneian
[2025-04-07 09:56] VITALS: BP 160/108; PULSE 111; RESP 18; O2SAT 97
[2025-04-07 09:59] VITALS: BP 160/108; PULSE 111; RESP 18; TEMP -17.7; TEMP 0; O2SAT 97
== END 2025-04-07 10:12 | disposition home or self-care (01) ==
LOC: HO.ED 09:54
PROVIDERS: Emergency Provider Emergency Medicine; PCP Student in an Organized Health Care Education/Training Program
DX: M25.561 Pain in right knee (principal); M25.512 Pain in left shoulder; T14.90XA Injury, unspecified, initial encounter; W10.9XXA Fall (on) (from) unspecified stairs and steps, initial encounter; Y93.9 Activity, unspecified; Y92.9 Unspecified place or not applicable; Y99.9 Unspecified external cause status; M54.9 Dorsalgia, unspecified; E11.9 Type 2 diabetes mellitus without complications; I10 Essential (primary) hypertension; K75.81 Nonalcoholic steatohepatitis (NASH); E78.5 Hyperlipidemia, unspecified
CPT/HCPCS: 72100; 73030; 73564; 99284

== ENCOUNTER → 2025-04-07 09:06 | Outpatient (BNV) | payer OTHER, SELFPAY | PROVIDERS: Emergency Provider Emergency Medicine; PCP Student in an Organized Health Care Education/Training Program; Visit Provider Radiology Diagnostic Radiology | DX: S80.911A Unspecified superficial injury of right knee, initial encounter (principal); S34.109A Unspecified injury to unspecified level of lumbar spinal cord, initial encounter; S49.92XA Unspecified injury of left shoulder and upper arm, initial encounter | CPT/HCPCS: 72100; 73030; 73564 ==

== ENCOUNTER 2025-04-16 09:56 | Outpatient (REF) | payer OTHER, SELFPAY ==
--- NOTE | ~2025-04-16 | US_ITS ---
EXAMINATION: US ABDOMEN LIMITED CLINICAL INFORMATION: K 75.81. Nonalcoholic steatohepatitis. COMPARISON: June 13, 2021 TECHNIQUE: Real-time ultrasound right upper quadrant abdomen using grayscale technique. FINDINGS: PANCREAS: No peripancreatic fluid collections. LIVER: Liver measures 18 cm. Increased echotexture. No nodular surface. No solid or cystic lesion. No intrahepatic biliary ductal dilatation. GALLBLADDER: Fluid-filled nondistended. No pericholecystic fluid collection or gallbladder wall thickening. COMMON BILE DUCT 5 mm. RIGHT KIDNEY: 13 cm. Normal echotexture. Renal cortical thickness is normal. No hydronephrosis. No solid or cystic lesion.. FREE FLUID: None. US/US abdomen limited IMPRESSION: Hepatomegaly and steatosis. No cholelithiasis or gross choledocholithiasis. No hydronephrosis, right kidney. No ascites. Electronically signed by: Lorenzo Xiao MD 04/16/2025 10:24 AM [facility]
== END 2025-04-16 09:57 | disposition home or self-care (01) ==
LOC: HO.US 09:56
PROVIDERS: PCP Student in an Organized Health Care Education/Training Program; Visit Provider Student in an Organized Health Care Education/Training Program
DX: K75.81 Nonalcoholic steatohepatitis (NASH) (principal)
CPT/HCPCS: 76705

== ENCOUNTER → 2025-04-16 09:59 | Outpatient (BNV) | payer OTHER, SELFPAY | PROVIDERS: PCP Student in an Organized Health Care Education/Training Program; Visit Provider Radiology Diagnostic Radiology | DX: K75.81 Nonalcoholic steatohepatitis (NASH) (principal); R16.0 Hepatomegaly, not elsewhere classified | CPT/HCPCS: 76705 ==

== ENCOUNTER 2025-05-01 11:04 | Outpatient (AMB) | payer OTHER, SELFPAY ==
--- NOTE | 2025-05-01 11:06 | MHC.OFFVIS ---
Vital Signs 05/01/25 11:07 Height 5 ft 9 in Weight 375 lb 7.155 oz BMI 55.4 BP 130/82 Blood Pressure Location Lt brachial Position Sitting Pulse 118 H Pulse Source Pulse Oximeter Pulse Oximetry (%) 99 Oxygen Delivery Method Room Air Intake Visit Reasons: DM Intake Note: Patient present today for Type 2 Diabetes Mellitus Last Diabetic eye exam: Last exam was one week ago. 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 (FreeStyle Urszula 3 [place]) Use daily As directed to monitor blood glucose cyclobenzaprine 5 mg PO TID PRN 7 days empagliflozin (Jardiance) 25 mg PO DAILY gabapentin 900 mg (3 x 300 mg) PO BEDTIME 90 days lisinopril 20 mg PO DAILY magnesium oxide 250 mg PO DAILY metformin 1,000 mg PO BID 1 month metoprolol succinate ER 50 mg PO DAILY naproxen 500 mg PO BID PRN simvastatin 10 mg PO BEDTIME HPI HPI DM: Details: Patient is a 34-year-old male with a significant past medical history of morbid obesity, noncompliance, hypertension, hyperlipidemia, type 2 diabetes, fatty liver presenting today for a follow up regarding his diabetes. Endo: Dm-his last A1c was 7.8. He was diagnosed with diabetes around 2017. He states everyone in his family has type 2 diabetes. He is currently on mounjaro 5 mg weekly, metformin 1000 mg twice a day, Jardiance 25 mg daily. -he had left over 2.5 mg of mounjaro so was taking 7.5 mg weekly and tolderating well. -no side effect to mounjaro and is noticing some appetite suppresion. He states that he is finally having a lot better glucose readings in the morning. He states it is around 130 now. CGM-forgot reader He was on trulicity 4.5 mg in the past and tolerated this well but felt like it was ineffective. He never noticed any decrease blood sugars. Had some GI upset with ozempic. He is on an ANIRUDH inhibitor. Hypoglycemia-states he has not had any episodes in the last few years. Hyperglycemia-does notice increased thirst and urination with this. He does have chronic peripheral neuropathy due to his diabetes. He is on gabapentin for this. CV: Blood pressure today in the office is 130/82. He states his pulse is high because he ran from outside to inside and chased his bus this morning. He states that he has a hx of tachycardia and has followed with cardiology but has not been seen in years and states that he can feel his heart race consistently. He does have an appointment coming up with his pcp. He is currently on lisinopril 20 mg and metoprolol 50 mg QAM and 100 mg QPM. Recently started on simvastatin for cholesterol. [facility] Medical History GERD (gastroesophageal reflux disease) BMI 50.0-59.9, adult Morbid obesity Neuropathy Vitamin D deficiency Hyperlipidemia Hypertension Type 2 diabetes mellitus with diabetic neuropathy Surgical History Hx of circumcision Family History Father Diabetes Mother Diabetes Social History Household Members: Family Household Members Other:: brothers Housing: Apartment Alcohol intake: never Patient Tobacco Use Status: Never used Tobacco e-Cigarette/Vaping Use: Never Used service: No Current occupational status: employed Current occupation: [employer] Cognitive needs: No Hearing needs: No Vision needs: No Physical Exam Vital Signs: Last Vital Signs Pulse 118 H 05/01/25 11:07 BP 130/82 05/01/25 11:07 Pulse Ox 99 05/01/25 11:07 Oxygen Delivery Method Room Air 05/01/25 11:07 BMI result Body Mass Index 55.4 Const Orientation/consciousness: patient oriented x3 HEENT Ears: hearing grossly normal bilaterally Neck Thyroid: Thyroid normal Lymphatic: no lymphadenopathy noted Resp Auscultation: clear to auscultation bilaterally Cardio Rate: tachycardic Rhythm: regular rhythm Skin General skin exam: no rashes or lesions noted Neuro General: patient oriented x3, gait normal and no focal motor deficits Assessment & Plan Assessment & Plan (1) Uncontrolled type 2 diabetes mellitus with hyperglycemia, with long-term current use of insulin: Code(s): E11.65 - Type 2 diabetes mellitus with hyperglycemia; 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 Category: Medical Plan: increase mounjaro to 10 mg daily Continue Jardiance Continue metformin (2) Hypertension: Code(s): I10 - Essential (primary) hypertension Category: Medical Qualifiers: Hypertension type: essential hypertension Qualified Code(s): I10 - Essential (primary) hypertension Plan: continue current plan (3) Tachycardia: Code(s): R00.0 - Tachycardia, unspecified Category: Medical Plan: referral back to cardiology advised to follow with his pcp to further discuss Orders: Referrals Cardiology Referral I10 - Essential (primary) hypertension, R00.0 - Tachycardia, unspecified Medications: New tirzepatide (Mounjaro) 10 mg (0.5 mL) subcut QWEEK 2 mL 5RF Coding Level of Care Code Est Pt Level 4 (15091) Add On Problem Visit Only Diagnoses Uncontrolled type 2 diabetes mellitus with hyperglycemia, with long-term current use of insulin E11.65; Z79.4 Essential hypertension I10 Hypertension type: essential hypertension Tachycardia R00.0
[2025-05-01 11:07] VITALS: BP 130/82; PULSE 118; O2SAT 99; BMI 55.4
[2025-05-01 11:18] LABS: Glucose, Whole Blood 186 mg/dL (60-115)
== END 2025-05-01 11:31 | disposition home or self-care (01) ==
LOC: HO.ENCR 11:05
PROVIDERS: PCP Family Medicine; Visit Provider Physician Assistant
DX: E11.65 Type 2 diabetes mellitus with hyperglycemia (principal); Z79.4 Long term (current) use of insulin; I10 Essential (primary) hypertension; R00.0 Tachycardia, unspecified

== ENCOUNTER → 2025-05-01 11:04 | Outpatient (BNVA) | payer OTHER, SELFPAY | PROVIDERS: PCP Family Medicine; Visit Provider Physician Assistant | DX: E11.65 Type 2 diabetes mellitus with hyperglycemia (principal); E11.40 Type 2 diabetes mellitus with diabetic neuropathy, unspecified; I10 Essential (primary) hypertension; R00.0 Tachycardia, unspecified; Z79.84 Long term (current) use of oral hypoglycemic drugs; Z83.3 Family history of diabetes mellitus | CPT/HCPCS: 82947; 99212 ==